=== PATIENT | male | born 1965 | race Caucasian/White ===

== ENCOUNTER 2018-04-21 08:23 | Emergency (ER) | payer OTHER, SELFPAY ==
[2018-04-21 08:24] VITALS: BP 184/98; PULSE 70; RESP 15; TEMP 36.8; BMI 28.0
--- NOTE | 2018-04-21 08:42 | ED.DEP ---
ED Disposition - Plan for ED Patient: Chief Complaint: Back Instructions: ED Sciatica Prescriptions: Oxycodone HCl/Acetaminophen [Percocet 5/325] 1 tab PO Q6H PRN PRN 5 Days #20 tab PRN Reason: Pain Diazepam [Valium] 5 mg PO Q8 PRN #10 tab PRN Reason: Muscle Spasm Referrals: Jonathan Christine MD [Primary Care Provider] - Belia Baez MD [STAFF PHYSICIAN] - 3-5 Days
--- NOTE | 2018-04-21 08:46 | ED.VISSUMM ---
- ER Visit Summary Date of Service: 04/21/18 Chief Complaint: [Back pain] History of Present Illness: The patient is a 52 M [presents the emergency department complaint of back pain that started for 5 weeks ago. Patient states that he has had history of chronic back pain over the years and has seen a chiropractor multiple times in the past. 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 Patient states that he saw a urgent care physician 1 week ago and was started on a Medrol Dosepak and Flexeril but has not get much in the way of relief. Patient currently rates his pain an 8 out of 10. Pain is lower right back and radiates into his buttock and down his right leg. Patient states that certain pressure on parts of his back or buttock will send a searing pain like an electrical shock down his right leg. Patient denies any weakness in extremities. Patient denies any change in bowel or bladder function. Patient denies saddle anesthesia or inability to have an erection. Patient tells me that he had a lumbar discectomy many years ago he thinks at L4 and L5. Patient denies any fevers. He denies any abdominal pain. He denies urinary symptoms.] Patient is not had any falls or direct trauma to his back. Physical Examination: [HEENT-PERRLA, EOMI. Cranial nerves II through XII grossly intact. TMs clear. Mucous membranes moist. No adenopathy. Cardiovascular-regular rate and rhythm without murmur or ectopy Lungs-clear to auscultation, chest wall stable without crepitus or subcu emphysema Abdomen-normoactive bowel sounds, soft, nontender, no rebound or rigidity, no peritoneal signs. No pulsatile masses palpated. Back exam-patient has no tenderness over the thoracic or lumbar spine. Patient does have some mild tenderness over the right lumbar paraspinal musculature into the right buttock over the area of the piriformis. Patient has a positive straight leg raise on the right with pain at about 40 degrees. Deep tendon reflexes are plus 1 out of 4 bilaterally at the patella and Achilles. Patient has normal L5 extension bilaterally. Patient has normal sensation to light touch. Patient ambulates without difficulty. Extremities-intact ?4, normal range of motion, normal pulses, atraumatic] Test Results: [None indicated] Emergency Department Course and Treatment: [Patient is driving therefore no treatment in the emergency department] Treatment Plan: [Patient will be referred to Dr. Baez who is an orthopedic data warehousing specialist for follow-up. I feel patient may require further imaging such as MRI to fully evaluate which will need to be performed as an outpatient as I do not feel patient has any signs or symptoms of cauda equina at this point. Patient will be started on Percocet and Valium. Patient was advised to return if worsening pain, weakness the extremities, change in bowel or bladder function, or condition should worsen anyway.] Disposition: [Discharged home in stable condition] Impression: [Lumbar radiculopathy] This note was generated with [employer] dictation software. It may contain incorrect words, spelling, and punctuation that were not noted in review of the chart prior to signing ED Disposition - Plan for ED Patient: Chief Complaint: Back Instructions: ED Sciatica Prescriptions: Oxycodone HCl/Acetaminophen [Percocet 5/325] 1 tab PO Q6H PRN PRN 5 Days #20 tab PRN Reason: Pain Diazepam [Valium] 5 mg PO Q8 PRN #10 tab PRN Reason: Muscle Spasm Referrals: Belia Baez MD [STAFF PHYSICIAN] - 3-5 Days Jonathan Christine MD [Primary Care Provider] -
--- NOTE | 2018-04-21 08:50 | ED.DCSUM_ITS ---
- ER Visit Summary Date of Service: 04/21/18 Chief Complaint: [Back pain] History of Present Illness: The patient is a 52 M [presents the emergency department complaint of back pain that started for 5 weeks ago. Patient states that he has had history of chronic back pain over the years and has seen a chiro practor multiple times in the past. 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 Patient states that he saw a urgent care physician 1 week ago and was started on a Medrol Dosepak and Flexeril but has not get much in the way of relief. Patient currently rates his pain an 8 out of 10. Pain is lower right back and radiates into his buttock and down his right leg. Patient states that certain pressure on parts of his back or buttock will send a searing pain like an electrical shock down his right leg. Patient denies any weakness in extremities. Patient denies any change in bowel or bladder function. Patient denies saddle anesthesia or inability to have an erection. Patient tells me that he had a lumbar discectomy many years ago he thinks at L4 and L5. Patient denies any fevers. He denies any abdominal pain. He denies urinary symptoms.] Patient is not had any falls or direct trauma to his back. Physical Examination: [HEENT-PERRLA, EOMI. Cranial nerves II through XII grossly intact. TMs clear. Mucous membranes moist. No adenopathy. Cardiovascular-regular rate and rhythm without murmur or ectopy Lungs-clear to auscultation, chest wall stable without crepitus or subcu emphysema Abdomen-normoactive bowel sounds, soft, nontender, no rebound or rigidity, no peritoneal signs. No pulsatile masses palpated. Back exam-patient has no tenderness over the thoracic or lumbar spine. Patient does have some mild tenderness over the right lumbar paraspinal musculature into the right buttock over the area of the piriformis. Patient has a positive straight leg raise on the right with pain at about 40 degrees. Deep tendon reflexes are plus 1 out of 4 bilaterally at the patella and Achilles. Patient has normal L5 extension bilaterally. Patient has normal sensation to light touch. Patient ambulates without difficulty. Extremities-intact ?4, normal range of motion, normal pulses, atraumatic] Test Results: [None indicated] Emergency Department Course and Treatment: [Patient is driving therefore no treatment in the emergency department] Treatment Plan: [Patient will be referred to Dr. Baez who is an orthopedic enrichment specialist for follow-up. I feel patient may require further imaging such as MRI to fully evaluate which will need to be performed as an outpatient as I do not feel patient has any signs or symptoms of cauda equina at this point. Patient will be started on Percocet and Valium. Patient was advised to return if worsening pain, weakness the extremities, change in bowel or bladder function, or condition should worsen anyway.] Disposition: [Discharged home in stable condition] Impression: [Lumbar radiculopathy] This note was generated with [employer] dictation software. It may contain incorrect words, spelling, and punctuation that were not noted in review of the chart prior to signing ED Disposition - Plan for ED Patient: Chief Complaint: Back Instructions: ED Sciatica Prescriptions: Oxycodone HCl/Acetaminophen [Percocet 5/325] 1 tab PO Q6H PRN PRN 5 Days #20 tab PRN Reason: Pain Diazepam [Valium] 5 mg PO Q8 PRN #10 tab PRN Reason: Muscle Spasm Referrals: Belia Baez MD [STAFF PHYSICIAN] - 3-5 Days Jonathan Christine MD [Primary Care Provider] -
== END 2018-04-21 08:54 | disposition home or self-care (01) ==
PROVIDERS: Emergency Provider Emergency Medicine; Family Provider Internal Medicine; PCP Internal Medicine
DX: M54.16 Radiculopathy, lumbar region (principal); G89.29 Other chronic pain; I10 Essential (primary) hypertension; Z79.899 Other long term (current) drug therapy
CPT/HCPCS: 99282

== ENCOUNTER → 2018-10-26 | Outpatient (CLI) | payer OTHER, SELFPAY ==
--- NOTE | 2018-10-26 16:01 | VDLE_ITS ---
Reason For Study: pain RIGHT LEFT GSV is normal. CFV is compressible, spontaneous, phasic, CFV is compressible, spontaneous, phasic, competent, and demonstrates normal competent and demonstrates normal augmentation. augmentation. FV is compressible, spontaneous, phasic, competent and demonstrates normal augmentation. POP V is compressible, spontaneous, phasic, competent and demonstrates normal augmentation. T/P Trunk is compressible. PTV is compressible. RT PerV is compressible. Procedure Exam performed in department. The exam was diagnostic. A preliminary report was called and/or faxed to Noem[facility] Sanchez. Interpretation Summary Deep veins of the right lower extremity are patent and compressible segmentally. There is no evidence of right lower extremity deep vein thrombosis. Valvular competence appears intact within the proximal deep venous system on the right . The right greater saphenous vein appears patent and compressible segmentally. Ordering Physician: SHAKEEL Herrera Performed By: Valentin Ramirez RVT
== END | disposition home or self-care (01) ==
LOC: CVS 16:00
PROVIDERS: Family Provider Internal Medicine; PCP Internal Medicine; Referring Provider Nurse Practitioner; Visit Provider Nurse Practitioner
DX: M79.604 Pain in right leg (principal)
CPT/HCPCS: 93971

== ENCOUNTER → 2019-10-23 12:12 | Outpatient (CLI) | payer OTHER, SELFPAY ==
[2018-11-11 09:53] VITALS: BMI 28.0
--- OUTSIDE RECORDS SUMMARY | 2020-03-18 13:21 | XMS RPT_ITS | CCD ---
:1965 External Reference #:[id number] Author Organization [facility] Care Team Providers Name Role Phone Dinah Alcocer MD Unavailable Laura INFORMIX DEVELOPER-FRENCH PROFESSOR, M Unavailable Rajni INFORMIX DEVELOPER-FRENCH PROFESSOR Unavailable Monique GOLDEN Attending Unavailable Monique GOLDEN Referring Unavailable Christine Primary Care Unavailable Juan José Unavailable Unavailable PROVIDER Unavailable Unavailable No Unavailable Unavailable Nick Boland DO Unavailable Coy Christine Primary Care Provider Medications Medication Name Sig Date Prescriber Location Acetaminophen / PERCOCET 5-325 MG 05-08-2018 [facility] oxyCODONE TABS One tablet [facility] [place] every six hours as - Orthopa edic needed for pain Surgeons Cli gauri ([id number]) OXYCODONE-ACETAMINO PHEN [id number] Noemí Sanchez INFORMIX DEVELOPER-FRENCH PROFESSOR amLODIPine amLODIPine 06-05-2018 Jonathan Cespedes [facility] (NORVASC) 10 mg - [facility] tablet Indications: 03-05-2020 - Orthop [facility] hypertension Take 1 (08671) tablet by mouth once daily. 90 tablet 0 03/05/2020 Active Comment: Take 1 tablet by mouth once daily. cyclobenzaprine cyclobenzaprine 10-23-2019 Josh romero [facility] (FLEXERIL) 10 mg tablet (441 [id number]) Indications: Lumbar paraspinal muscle spasm Take 1 tablet by mouth three times daily as needed. 30 tablet 1 10/23/2019 Active Comment: Take 1 tablet by mouth three times daily as needed. DOCUSATE SODIUM CAPS [employer] STOOL SOFTENER CAPS As 10-26-2018 [facility] [phone] Orth opaedic Surgeons Noemí Sanchez [facility] ([id number]) INFORMIX DEVELOPER-FRENCH PROFESSOR [employer] STOOL SOFTENER CAPS As needed 10-26-2018 [facility] Orthopaedic Center - DOCUSATE SODIUM CAPS [facility] ([id number]) [id number] Noemí Adrian [place] INFORMIX DEVELOPER-FRENCH PROFESSOR [employer] STOOL SOFTENER CAPS As needed 10-26-2018 [facility] Orthopaedic Center - DOCUSATE SODIUM CAPS [facility] (47616) [id number] Noemí Adrian [place] INFORMIX DEVELOPER-FRENCH PROFESSOR [employer] STOOL SOFTENER CAPS As needed 10-26-2018 [facility] [place] - DOCUSATE SODIUM CAPS [facility] (84544) [phone] Noemí Adrian [facility] gabapentin gabapentin (NEURONTIN) 03-10-2020 - [facility] 800 mg tablet 04-09-2020 Orthopa[facility] Ce nter Indications: - Orthopaedic Radiculopathy, lumbar Surgeo ns Clinic region take 1 tablet ([id number]) by mouth three times a day 90 tablet 1 03/10/2020 04/09/2020 Active gabapentin (NEURONTIN) 01-10-2020 - [facility] Smarter Agent Mobile C linic 800 mg tablet 02-09-2020 Orthopaedic Cent er - Indications: Orthopaedic Surg eons Radiculopathy, lumbar Clinic (56 [id number]) region take 1 tablet by mouth three times a day 90 tablet 1 01/10/2020 Active GABAPENTIN 600 MG TABS 1 01-15-2019 - Noemí Adrian [facility] tablet PO Three times 02-14-2019 INFORMIX DEVELOPER-FRENCH PROFESSOR Orthopaedi c Center - daily Dx Code: M54.16 [facility]opaedi c [facility] (29 333) GABAPENTIN [id number] Noemí Adrian [facility] GABAPENTIN 100 MG CAPS 05-08-2018 [facility] linic One capsule twice daily Orthopae dic Center - GABAPENTIN Orthopaedi c Surgeons [phone] Noemí Adrian [facility] (058 [id number]) [place] INFORMIX DEVELOPER-FRENCH PROFESSOR NEURONTIN 300 MG CAPS 05-08-2018 Noemí Adrian [facility] Take 1 tab by mouth twice INFORMIX DEVELOPER-FRENCH PROFESSOR Orthop aedic Center - daily x7 days, then 1 tab Orthop aedic Surgeons by mouth three times a Clinic (9 7103) day Dx Code: M54.16 GABAPENTIN [id number] Noemí Virgen [facility] GABAPENTIN 600 MG TABS 1 05-08-2018 Ranjana Urban [facility] tab PO TID [facility] Orthopaedi c Center - GABAPENTIN [id number] Orthopaed ic Surgeons [facility] ([id number] ) [facility] Comment: take 1 tablet by mouth three times a day Ibuprofen IBUPROFEN 800 MG 01-25-2019 - Noemí Gates Cli gauri TABS Take one tablet 05-02-2019 [facility] edic [place] by mouth twice a day [facility] - Ortho paedic w/ food Surgeons Clinic IBUPROFEN (83514) [id number] Noemí Virgen [facility] IBUPROFEN 800 MG TABS Take 07-13-2018 Ranjana Urban [facility] 1 tablet by mouth every 8 [facility] Orthop aedic Center - hours as needed with food Orthop aedic Surgeons IBUPROFEN Clinic (441 [id number]) [phone] [facility] IBUPROFEN 200 MG TABS 2 05-03-2018 [facility] tablets (400mg) as Orthopaedic C enter - directed as needed Orthopaedic S urgeons IBUPROFEN Clinic (447 33) [phone] Ruba Dunne RN Comment: Take 800 mg by mouth twice d aily as needed. Lisinopril LISINOPRIL 10 MG TABS 1 tablet 05-03-2018 [facility] Orthopaedic once daily Center - Orthopaedic Surgeons LISINOPRIL [phone] Ruba [facility] (86591) Uzair BUSCH lisinopril (ZESTRIL, 05-03-2018 - Jonathan Christine [facility] PRINIVIL) 40 mg tablet 03-05-2020 Orthopaed ic Center - Indications: Essential Orthopaed ic Surgeons hypertension Take 1 Clinic ([phone]) tablet by mouth once daily. 90 tablet 0 03/05/2020 Active Comment: Take 1 tablet by mouth once daily. Naproxen EC-NAPROSYN 500 MG 05-08-2018 Noemí Gates C linic TBEC Take 1 tablet [place] [facility] [place] by mouth 2 times a [facility] - Orthopa edic day Surgeons Clin ic NAPROXEN (36834) [phone] Noemí Sanchez [facility] OMEPRAZOLE TABLETS OMEPRAZOLE TABLETS 10-26-2018 [facility] As needed Orthopaedic Jakub ter - Orthopaedic OMEPRAZOLE TABLETS Surgeons Clinic Noemí Sanchez (30793) [facility] OMEPRAZOLE TABLETS As needed 10-26-2018 [facility] Orthopaedic Center - OMEPRAZOLE TABLETS [facility] (50489) Virgen Sanchez [facility]EL[facility] OMEPRAZOLE TABLETS As needed 10-26-2018 [facility] Orthopaedic Center - OMEPRAZOLE TABLETS [facility] (78255) Virgen Sanchez [facility] OMEPRAZOLE TABLETS As needed 10-26-2018 [facility] Center - OMEPRAZOLE TABLETS [facility] (31315) Virgen Sanchez [facility] pantoprazole pantoprazole 08-30-2019 Zuleika (Environmental Inspector) [facility] (PROTONIX) 40 mg tablet (441 95) Indications: Dysphagia, unspecified type Take 1 tablet by mouth daily before breakfast. 30 tablet 1 08/30/2019 Active Comment: Take 1 tablet by mouth daily before breakfast. pregabalin LYRICA 100 MG ORAL 01-25-2019 - Yann Boland [facility] CAPSULE (PREGABALIN) 02-24-2019 DO Orthopa edic Center Take 1 capsule by - Orthopae dic mouth 2 times a day Surgeons Clinic (66767 ) LYRICA 100 MG ORAL CAPSULE (PREGABALIN) Yann Romero [facility] tamsulosin tamsulosin ER 07-24-2019 Mitzy Castro) [place] [facility] (FLOMAX) 0.4 mg jenni Russ (77076) Indications: BPH with obstruction/lower urinary tract symptoms Take 1 capsule by mouth daily at bedtime. 90 capsule 3 07/24/2019 Active Comment: Take 1 capsule by mouth laura y at bedtime. Problems Active Problems Category Problem Name Status Date Location Disorders of lipid [facility] metabolism (26539) Esophageal disorders Gastroesophageal reflux Active - [facility] disease (67085) Essential hypertension Essential hypertension Active 10-19-19 06 - [facility] (42471) Hyperplasia of Benign prostatic Active 11-08-2013 - [facility] prostate hyperplasia (74233) Other upper Chronic rhinitis Active 04-17-2015 - [facility] lin respiratory disease (43978) Past or Other Problems Category Problem Name Status Date Location Fracture of lower limb Closed fracture of Completed 02-28-2019 - [facility] great toe Orthopaedic [facility] ter [facility] (07618) Fracture of upper limb Closed fracture of Completed 02-28-2019 - [facility] distal phalanx of Orthopaedi c Center finger - [facility] (65929) Other aftercare Surgical follow-up Completed 08-29-2018 [facility] Orthopaedic [facility]geons [facility] (77828) Other connective tissue Pain in right lower Completed 10-26-2018 - [facility] disease limb Orthopaedic [facility] Orthopaedic Surgeons [facility] (80948) Residual codes; Noncompliance with Completed 03-14-2019 - [facility] unclassified treatment [facility]opaedic [facility] Orthopaedic Surgeons [facility] (76856) Spondylosis; Spinal stenosis of Completed 04-28-2018 - [facility] intervertebral disc lumbar region Orthopa edic Center disorders; other back - Orth opaedic problems [facility]geons [facility] (24727) Unclassified Problem [facility] Orthopaedic [facility] (93337) Results Result Name Value Range Unit Interpretation Flag Date Location obsolete on 2020-03 OBSOLETE Refill (AGSPINE2) Normal 03-10-2020 [facility] MICHAEL CHASE ([id number]) 1965 M Medical Date Time Provider Department Center 03/10/20 ULISES ZEPEDA AGSPINE2 ([id number]) During your visit today, we recorded the following informati on about you: Allergies As of Date: 03/10/2020 (No Known Allergies) Date Reviewed: 08/30/2019 Reviewed by: Zuleika ([facility]) Older - Fully Assessed Reason for Visit: Refill Request [94] Visit Diagnosis:Radiculopathy, lumbar region [M54.16] Order(s):gabapentin (NEURONTIN) 800 mg tablettake 1 tablet b y mouth three times a dayDisp: 90 tabletRfl: 1 Prescriptions as of 03/10/2020 Sig: GABAPENTIN 800 MG TABLET take 1 tablet by mouth three * LISINOPRIL 40 MG TABLET Take 1 tablet by mouth once d* AMLODIPINE 10 MG TABLET Take 1 tablet by mouth once d* CYCLOBENZAPRINE 10 MG TABLET Take 1 tablet by mouth three * PANTOPRAZOLE 40 MG TABLET,DEL* Take 1 tablet by mouth daily * TAMSULOSIN 0.4 MG CAPSULE Take 1 capsule by mouth daily* IBUPROFEN 800 MG TABLET Take 800 mg by mouth twice da* Problem List As Of Date 03/10/2020 Noted Resolved Essential hypertension [I10] 10/18/2005 OBESITY [E66.9] 10/18/2005 04/17/2015 Diarrhea [R19.7] 10/27/2007 04/17/2015 BPH (benign prostatic hyperplasia) [N40.0] 11/08/2013 Hyperlipidemia [E78.5] 11/26/2013 Blood glucose abnormal [R73.09] 11/26/2013 06/02/2018 Gastroesophageal reflux disease [K21.9] 04/17/2015 Chronic rhinitis [J31.0] 04/17/2015 Kidney insufficiency [N28.9] 05/14/2018 06/20/2018 Lumbar radiculopathy [M54.16] 05/08/2018 Prescriptions ordered this encounter Disp Refills Start End GABAPENTIN 800 MG TABLET 90 t* 1 03/10/2020 04/09/2020 Sig: take 1 tablet by mouth three times a day Medications Discontinued During This Encounter Prescriptions - gabapentin (NEURONTIN) 800 mg tablet (Discontinued) take 1 tablet by mouth three times a day Encounter Status:Closed by ULISES ZEPEDA on 03/10/20 obsolete on 2020-02 OBSOLETE Refill (INTMWS) Normal 03-05-2020 Paco khan [facility] MICHAEL CHASE ([id number]) [address] [facility] Date Time Provider Department ([id number]) 03/05/20 JONATHAN CHRISTINE INTRUSTY During your visit today, we recorded the following informati on about you: Keturah Doshi [facility] 03/05/2020 9:57 AM Signed Patient has been identified by name and date of : Yes Pending Prescriptions Disp Refills LISINOPRIL 40 MG TABLET 90 tablet 3 Sig: Take 1 tablet by mouth once daily. ARIA: No AMLODIPINE 10 MG TABLET 90 tablet 3 Sig: Take 1 tablet by mouth once daily. ARIA: No RX INSTRUCTIONS: Patient aware RX will be sent to pharmacy. No need to notify patient. Keturah Doshi [facility] Sofia Arriola LPN 03/05/2020 10:07 AM Signed Patient has been identified by name and date of : Yes Patient phones for refill(s): Pending Prescriptions Disp Refills LISINOPRIL 40 MG TABLET 90 tablet 0 Sig: Take 1 tablet by mouth once daily. ARIA: No AMLODIPINE 10 MG TABLET 90 tablet 0 Sig: Take 1 tablet by mouth once daily. ARIA: No Date of last office visit in primary care: 10/23/2019 No future appt scheduled. Last 2 Encounter Wt Readings: Date: Wt: 07/24/2019 101.9 kg (224 lb 9.6 oz) 07/12/2019 99.8 kg (220 lb) Previous labs/tests for medication: Blood Pressure: BUN (mg/dL) Date Value 05/31/2018 19 Sodium (mmol/L) Date Value 05/31/2018 142 Last 1 Encounter BP Readings: Date: BP: 07/24/2019 118/80 Please advise. Thank you. Sofia Christine MD 03/05/2020 10:29 AM Signed Fasting lab ordered. In office visit needed. Devon Michaels Cma 03/05/2020 10:57 AM Signed Sent secure [email or web address] message to patient with below informatio n. Asked patient to call office to schedule appointments. Devon Michaels Cma Allergies As of Date: 03/05/2020 (No Known Allergies) Date Reviewed: 08/30/2019 Reviewed by: Zuleika ([facility]) Older - Fully Assessed Reason for Visit: Refill Request [94] Primary Visit Diagnosis:Hype rlipidemia, unspecified hyperlipidemia type [E78.5] Other Visit Diagnosis:Essential hypertension [I10] Order(s):lisinopril (ZESTRIL, PRINIVIL) 40 mg tabletTake 1 t ablet by mouth once daily.Disp: 90 tabletRfl: 0 amLODIPine (NORVASC) 10 mg tabletTake 1 tablet by mouth once daily.Disp: 90 tabletRfl: 0 CBC [SQCBC] Order #: [id number] FUTURE CMP (CMP) (FOR REMOTE [facility] USE) [SQRCMP] Order #: [id number] FUTURE LIPID PANEL BASIC [SQLIPB] Order #: [id number] FUTURE Prescriptions as of 03/05/2020 Sig: LISINOPRIL 40 MG TABLET Take 1 tablet by mouth once d* AMLODIPINE 10 MG TABLET Take 1 tablet by mouth once d* GABAPENTIN 800 MG TABLET take 1 tablet by mouth three * CYCLOBENZAPRINE 10 MG TABLET Take 1 tablet by mouth three * PANTOPRAZOLE 40 MG TABLET,DEL* Take 1 tablet by mouth daily * TAMSULOSIN 0.4 MG CAPSULE Take 1 capsule by mouth daily* IBUPROFEN 800 MG TABLET Take 800 mg by mouth twice da* Problem List As Of Date 03/05/2020 Noted Resolved Essential hypertension [I10] 10/18/2005 OBESITY [E66.9] 10/18/2005 04/17/2015 Diarrhea [R19.7] 10/27/2007 04/17/2015 BPH (benign prostatic hyperplasia) [N40.0] 11/08/2013 Hyperlipidemia [E78.5] 11/26/2013 Blood glucose abnormal [R73.09] 11/26/2013 06/02/2018 Gastroesophageal reflux disease [K21.9] 04/17/2015 Chronic rhinitis [J31.0] 04/17/2015 Kidney insufficiency [N28.9] 05/14/2018 06/20/2018 Lumbar radiculopathy [M54.16] 05/08/2018 Prescriptions ordered this encounter Disp Refills Start End LISINOPRIL 40 MG TABLET 90 t* 0 03/05/2020 Cmt: Patient needs to schedule appt w/PCP. Route: ORAL Sig: Take 1 tablet by mouth once daily. AMLODIPINE 10 MG TABLET 90 t* 0 03/05/2020 Cmt: Patient needs to schedule appt w/PCP. Route: ORAL Sig: Take 1 tablet by mouth once daily. Medications Discontinued During This Encounter Prescriptions - lisinopril (ZESTRIL, PRINIVIL) 40 mg tablet (Discontinued) Take 1 tablet by mouth once daily. - amLODIPine (NORVASC) 10 mg tablet (Discontinued) Take 1 tablet by mouth once daily. Encounter Status:Closed by DEVON MICHAELS CMA on 03/05/20 obsolete on 2020-01 OBSOLETE Refill (AGSPINE2) Normal 01-10-2020 A rosy [facility] MICHAEL CHASE ([id number]) 1965 Medical Date Time Provider Department Center 01/10/20 ULISES ZEPEDA AGSPINE2 ([id number]) During your visit today, we recorded the following informati on about you: Allergies As of Date: 01/10/2020 (No Known Allergies) Date Reviewed: 08/30/2019 Reviewed by: Zuleika ([facility]) Older - Fully Assessed Reason for Visit: Refill Request [94] Visit Diagnosis:Radiculopathy, lumbar region [M54.16] Order(s):gabapentin (NEURONTIN) 800 mg tablettake 1 tablet b y mouth three times a dayDisp: 90 tabletRfl: 1 Prescriptions as of 01/10/2020 Sig: GABAPENTIN 800 MG TABLET take 1 tablet by mouth three * CYCLOBENZAPRINE 10 MG TABLET Take 1 tablet by mouth three * PANTOPRAZOLE 40 MG TABLET,DEL* Take 1 tablet by mouth daily * TAMSULOSIN 0.4 MG CAPSULE Take 1 capsule by mouth daily* LISINOPRIL 40 MG TABLET Take 1 tablet by mouth once d* AMLODIPINE 10 MG TABLET Take 1 tablet by mouth once d* IBUPROFEN 800 MG TABLET Take 800 mg by mouth twice da* Problem List As Of Date 01/10/2020 Noted Resolved Essential hypertension [I10] 10/18/2005 OBESITY [E66.9] 10/18/2005 04/17/2015 Diarrhea [R19.7] 10/27/2007 04/17/2015 BPH (benign prostatic hyperplasia) [N40.0] 11/08/2013 Hyperlipidemia [E78.5] 11/26/2013 Blood glucose abnormal [R73.09] 11/26/2013 06/02/2018 Gastroesophageal reflux disease [K21.9] 04/17/2015 Chronic rhinitis [J31.0] 04/17/2015 Kidney insufficiency [N28.9] 05/14/2018 06/20/2018 Lumbar radiculopathy [M54.16] 05/08/2018 Prescriptions ordered this encounter Disp Refills Start End GABAPENTIN 800 MG TABLET 90 t* 1 01/10/2020 02/09/2020 Sig: take 1 tablet by mouth three times a day Medications Discontinued During This Encounter Prescriptions - gabapentin (NEURONTIN) 800 mg tablet (Discontinued) take 1 tablet by mouth three times a day Encounter Status:Closed by ULISES ZEPEDA on 01/10/20 cnpn [facility] Normal 10-25-2019 [place] [facility] MICHAEL CHASE ([id number]) [address] [facility] Date Time Provider Department ([id number]) 10/25/19 JOSH DOZIER III During your visit today, we recorded the following informati on about you: Richard Watson LPN 10/25/2019 9:12 AM Signed Pt had Zoom appt with Dr Dozier yesterday. Received neg ative COVID-19 results from [facility]. Results on Dr Dozier's desk for review. Pt us es My Chart. Richard Dozier III MD 10/25/2019 9:50 AM Signed Please notify patient that he had negative results for Covid 19. I suspect that he has a different viral syndrome. I recommend supporti ve treatment including rest, good hydration, good handwashing and social distancing. He must wear a mask when out in public though he should spend most of his time resting at home until his present illness has resolved. No tify office if he notes additional symptoms of illness. ANGELIQUE Lewis MD, NIKIA, NIKIA 10/25/2019 10:23 AM Signed Spoke with pt gave information provided. Pt voices understan demarco. Allergies As of Date: 10/25/2019 (No Known Allergies) Date Reviewed: 08/30/2019 Reviewed by: Zuleika ([facility]) Older - Fully Assessed Reason for Visit: Results [95] Prescriptions as of 10/25/2019 Sig: CYCLOBENZAPRINE 10 MG TABLET Take 1 tablet by mouth three * PANTOPRAZOLE 40 MG TABLET,DEL* Take 1 tablet by mouth daily * GABAPENTIN 800 MG TABLET take 1 tablet by mouth three * TAMSULOSIN 0.4 MG CAPSULE Take 1 capsule by mouth daily* LISINOPRIL 40 MG TABLET Take 1 tablet by mouth once d* AMLODIPINE 10 MG TABLET Take 1 tablet by mouth once d* IBUPROFEN 800 MG TABLET Take 800 mg by mouth twice da* Problem List As Of Date 10/25/2019 Noted Resolved Essential hypertension [I10] 10/18/2005 OBESITY [E66.9] 10/18/2005 04/17/2015 Diarrhea [R19.7] 10/27/2007 04/17/2015 BPH (benign prostatic hyperplasia) [N40.0] 11/08/2013 Hyperlipidemia [E78.5] 11/26/2013 Blood glucose abnormal [R73.09] 11/26/2013 06/02/2018 Gastroesophageal reflux disease [K21.9] 04/17/2015 Chronic rhinitis [J31.0] 04/17/2015 Kidney insufficiency [N28.9] 05/14/2018 06/20/2018 Lumbar radiculopathy [M54.16] 05/08/2018 Encounter Status:Closed by JENNA GALDAMEZ LPN on 10/25/19 progress on 2019-10 PROGRESS HNO ID: [id number] Normal 10-23-2019 [place] Author: Josh Dozier III Clinic Service: ? [place] Author Type: Physician ([id number]) Type: Progress Notes Filed: 10/23/2019 10:30 AM Note Text: This Team Access Model visit is a virtual encounter. It requ ired patient-provider interaction for the medical decision making as documented below. initiated at 1009 This patient encounter involved the screening or treatment o f novel coronavirus infection (COVID-19). SUBJECTIVE: This is a 54 year old male that is here today fo r 1. Generalized aching and pain starting 10/20. fever x 18 hrs (T102.5 ), chills, sweats on 10/21. No fever since last sangeeta. 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 Denies being in groups of people who have been non-compliant with [facility] quarantine/safe distancing orders. Only exposed to family members who are not ill. Hx of low back pain and now has increase in back pain. Constipated with the muscle tightness. Asking for muscle relaxer. Has CHAPPELL, but no cough, dyspnea PAST MEDICAL HISTORY Diagnosis Date - BPH (benign prostatic hyperplasia) 11/08/2013 - Chronic rhinitis 04/17/2015 - Diarrhea IBS, 2007 - Gastroesophageal reflux disease 04/17/2015 - Hyperlipidemia 11/26/2013 - HYPERTENSION NOS 10/18/2005 - Snoring Current Outpatient Medications on File Prior to Visit Medication Sig - clotrimazole (MYCELEX) 10 mg brie Use 1 Brie as instru cted four times daily. - pantoprazole DR (PROTONIX) 40 mg tablet Take 1 tablet by m outh daily before breakfast. - gabapentin (NEURONTIN) 800 mg tablet take 1 tablet by mout h three times a day - tamsulosin ER (FLOMAX) 0.4 mg cap Take 1 capsule by mouth daily at bedtime. - lisinopril (ZESTRIL, PRINIVIL) 40 mg tablet Take 1 tablet by mouth once daily. - amLODIPine (NORVASC) 10 mg tablet Take 1 tablet by mouth o nce daily. - ibuprofen (MOTRIN) 800 mg tablet Take 800 mg by mouth twic e daily as needed. No current facility-administered medications on file prior t o visit. FAMILY HISTORY Problem Relation Age of Onset - Diabetes Mother - Coronary Artery Disease Father several SC's - Stroke Father - Diabetes Father Social History Tobacco Use - Smoking status: Never Smoker - Smokeless tobacco: Former User Types: Chew Substance Use Topics - Alcohol use: No Frequency: Never Drinks per session: Patient refused Binge frequency: Patient refused - Drug use: No There were no vitals taken for this visit. . OBJECTIVE: APPEARANCE Well appearing, alert, in no acute distress, well -hydrated, well nourished. and cheerful, alert, rational, goal oriented ASSESSMENT: viral syndrome --r/o Covid 19 lumbar muscle strain hx of degenerative LS disc dis. PLAN: careful activity-progress activity as able flexeril 10 mg three times/day as needed for muscle spasm Covid 19 testing today at [facility]--form faxed Stay home from work until Covid testing confirms absence of disease PATIENT INSTRUCTIONS: At present, these are our recommendations regarding the crystal navirus (COVID-19) outbreak: - Wash your hands regularly for at least 20 seconds with soa p and water, especially before eating. - If soap/water are unavailable, use a hand weatherization coordinator with a t least 60% alcohol - Avoid touching your eyes, nose and mouth with unwashed norris ds. - Avoid close contact (within 6 feet) with people who are si ck. - Stay home if you are feeling sick. - Cover your cough or sneeze with a tissue, then throw the t issue in the trash. - Standard household cleansers and wipes are effective in cl eaning and disinfecting frequently touched objects and surfaces. - Skip events that put you in contact with large groups of p eople (sporting events, concerts, theme atkins, etc). - Avoid unnecessary domestic and international travel, inclu ding travel through large international airports. - If traveling, wipe down your airplane seat (and tray) with a disinfecting wipe. If you have a fever, cough or shortness of breath, or are ot herwise concerned you have COVID-19, we ask that you do not come to any [facility] facility without calling your primary care physician or speaking to a provider using a virtual visit using [facility] Expr ess Care? Online. You will be evaluated to determine if you require be ing seen in person or if you meet CDC guidelines for testing for COVID-1 9 based on symptoms, travel and exposures. If you meet criteria for arlyn ting, your Express Care Online provider or primary care physician will advise how to proceed with testing - CDC recommends wearing cloth face coverings in public sett ings where other social distancing measures are difficult to maintain ( e.g., grocery stores and pharmacies) especially in areas of significant co mmunity-based transmission. Cloth face coverings should: ? fit snugly but comfortably against the side of the face ? be secured with ties or ear loops ? include multiple layers of fabric ? allow for breathing without restriction ? be able to be laundered and machine dried without damage o r change to shape Cloth face coverings should not be placed on young children under age 2, anyone who has trouble breathing, or is unconscious, incapac itated or otherwise unable to remove the mask without assistance. - There is no need to stop your immunosuppressive medication s preemptively. - If you become sick, please let your doctor know, and discu ss with them prior to stopping any medications. - At this point, we have no knowledge that patients on immun osuppressive medications are at higher risk of COVID-19 infection. - Most importantly, don't panic. By following basic preventi on measures such as hand hygiene and cover your cough, you are helping t o keep yourself and others healthy. Additional information can be found on the CDC and [facility] web sites: https://www.cdc.gov/coronavirus/2019-nCoV/index.html https://[facility].org/coronavirus Josh Dozier III MD ended at 1023 14 min cnpn on 2019-09-18 CNPN Telephone (UROLWS) Normal 09-18-2019 [place] [facility] MICHAEL CHASE ([id number]) [address] [facility] Date Time Provider Department ([id number]) 09/18/19 MITZY RUSS) [facility] During your visit today, we recorded the following informati on about you: Yudy Quintero Ma 09/18/2019 1:45 PM Signed Mitzy Castro) Burak Stern [facility] Urology Pool ? PSA Much improved after repeating after UTI treatment This is of very little concern right now but I would l edel to have him for in person visit in 1 year with a PSA prior to the visit. Thank you, Burak Quintero Ma 09/18/2019 2:07 PM Signed Left message for patient to contact office. Yudy Quintero Ma 09/24/2019 9:44 AM Signed [employer] message sent. Yudy Bhakta Ma 09/28/2019 9:16 AM Signed Pt. notified of test results. Domi Bhakta MA Allergies As of Date: 09/18/2019 (No Known Allergies) Date Reviewed: 08/30/2019 Reviewed by: Zuleika ([facility]) Older - Fully Assessed Reason for Visit: Results [95] Prescriptions as of 09/18/2019 Sig: CLOTRIMAZOLE 10 MG BRIE Use 1 Brie as instructed fo* PANTOPRAZOLE 40 MG TABLET,DEL* Take 1 tablet by mouth daily * GABAPENTIN 800 MG TABLET take 1 tablet by mouth three * TAMSULOSIN 0.4 MG CAPSULE Take 1 capsule by mouth daily* LISINOPRIL 40 MG TABLET Take 1 tablet by mouth once d* AMLODIPINE 10 MG TABLET Take 1 tablet by mouth once d* IBUPROFEN 800 MG TABLET Take 800 mg by mouth twice da* Problem List As Of Date 09/18/2019 Noted Resolved Essential hypertension [I10] 10/18/2005 OBESITY [E66.9] 10/18/2005 04/17/2015 Diarrhea [R19.7] 10/27/2007 04/17/2015 BPH (benign prostatic hyperplasia) [N40.0] 11/08/2013 Hyperlipidemia [E78.5] 11/26/2013 Blood glucose abnormal [R73.09] 11/26/2013 06/02/2018 Gastroesophageal reflux disease [K21.9] 04/17/2015 Chronic rhinitis [J31.0] 04/17/2015 Kidney insufficiency [N28.9] 05/14/2018 06/20/2018 Lumbar radiculopathy [M54.16] 05/08/2018 Encounter Status:Closed by YUDY QUINTERO MA on 09/24/19 psa, diagnostic on 2019-09-17 PSA, Diagnostic 3.57 0.00-2.59 ng/mL High 09-17-2019 [facility] ([id number]) Comment: Result Comment: Total PSA te st methodology used is the Electrochemiluminescence Immunoassay. The presence of an abnormal result flag in this range (2.6 to 4.0 ng/mL) should not necessarily be an automatic indicator for prostate biopsy. For an individual patient, t he significance of a PSA level should be interpreted in a broad clinical context, including age, race, family history, digital rectal exam, prostate size, results of prior te sting (prostate biopsy, free PSA, PCA3), and use of 5-alpha reductase inhibitors. Considering the high inciden ce of asymptomatic cancer in the general population that may not pose an ultimate risk to a patient, the decision to recommend urological evaluation or prostate biopsy should be individualized after con sideration of all these factors. REFERENCE: Idris Lambert M.D., M.P. H., David Hazel M.D., Ph.D., Edi Barraza M.D., Ade Oro, M.P.H., Marya Gerber, Sc.D. Effect of Verification Bias on Screening for Prostate Cancer by Measurement of Prostatic Specific Antigen. N Engl J Med 2003,349:335-42. Performed By: #### PSA ####C [facility] [place], [place] [phone] history physical on 2019-09-07 HISTORY PHYSICAL HNO ID: [id number] Normal [facility] Author: Robby Mauricio [place] ([id number]) Service: ? Author Type: Nurse Practitioner Type: HANDP Filed: 09/07/2019 11:43 AM Note Text: This Team Access Model visit is a phone encounter. It requir ed patient-provider interaction for the medical decision making as documented below. The patient consented to this type of encounter since it was performed virtually due to the COVID-19 epidemic as an effor t to protect patients and minimize exposure. The patient is identified by name and birthday. Michael Seedia a 54 year old male who is a consultation re quested by Zuleika Jason APRN for an opinion regarding dysphagia. My final rec ommendations will be communicated back to the requesting physician by way of shared Medical record. The patient has his call Dr. Christine on 08/29/19 magdalena pal difficulty swallowing. The patient was then interviewed by Maite phipps on 08/30/19. That encounter has been reviewed. He reported dysph agia after having eaten a cheeseburger and fries. The sensation lasted 8 hours. Notes occasional heartburn. He reported taking ibuprofen 800mg twi ce a day for nearly a year, since having back surgery. The patient was pr escribed pantoprazole 40mg daily. The patient has been seen previously. I saw him on 12/16/17 r egarding GERD and colorectal cancer screening. That note has been reviewed . The patient underwent EGD and colonoscopy by Dr. Orozco on 12/23/17: EGD Impression: - Normal examined jejunum. ? - Erythematous duodenopathy. ? - Gastritis. Biopsied. ? - Monilial esophagitis. ? - Monilial esophagitis. Biopsied. Recommendation: - Nystatin suspension 100,000 units PO QID f or 2 weeks. FINAL DIAGNOSIS 1. Stomach, antrum, biopsy (A) - Gastric mucosa with no diag nostic alteration. - Negative for H. pylori organisms on routine stain. 2. Esophagus, distal, biopsy (B) - Acute esophagitis with fu ngal organisms morphologically consistent with Anna species. 3. Esophagus, mid, biopsy (C) - Esophageal squamous mucosa w ith no diagnostic alteration. - No evidence of eosinophilic esophagitis. 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 Chief complaint: The patient states every once in a while i t feels like food goes down a few inches and stops. Can't burp, but can b reathe. When I ate the cheeseburger and fries it took me an hour and a chappell lf before I could finally puke up the food. It gets uncomfortable every few months and I can usually burp it back up, drink a few liquids and b e fine. Started pantoprazole after seeing Zuleika. Also has Prilosec OTC at home. Usually has dinner 5-7:00, only meal of the day, and might h ave a snack later. He heads to bed 9-10:00. Sleeps on a regular mattress with the head of the bed flat, Uses 2 pillows to prop. We discussed n ot eating for 3 hours before bed or elevating the head of the bed. REVIEW OF SYSTEMS: GENERAL: No weight loss, malaise or fevers RESPIRATORY: Negative for cough, hemoptysis, wheezing, COPD, dyspnea or shortness of breath CARDIOVASCULAR: Hypertension and hyperlipidemia. No chest pa in. GI: The patient states that his appetite has been good. He d oes get hungry. There has been no nausea, no vomiting. He admits to dysphagia as noted aboveand denies odynophagia. There has sometimes been indigestion with heartburn. There has been regurgitation. Bowel habits h ave been regular. There has not been melena. No abdominal pain. PSYCH: Negative for sleep disturbance, mood disorder and rec ent psychosocial stressors. ENDOCRINE: Negative for cold or heat intolerance, polyuria, polydipsia and goiter NEURO: No history of headaches, syncope, paralysis, seizures or tremors All other reviewed and negative other than HPI. PAST MEDICAL HISTORY Diagnosis Date - BPH (benign prostatic hyperplasia) 11/08/2013 - Chronic rhinitis 04/17/2015 - Diarrhea IBS, 2007 - Gastroesophageal reflux disease 04/17/2015 - Hyperlipidemia 11/26/2013 - HYPERTENSION NOS 10/18/2005 - Snoring PAST SURGICAL HISTORY Procedure Laterality Date - COLONOSCOP W/ OR W/O BRSH SPEC 12/23/2017 Colonoscopy - COLONOSCOPY W/BX 10/23/07 - EGD W/O OR W/BRUSH/WASH 12/23/2017 EGD - PAST SURGICAL HISTORY OF 2004 back surgery FAMILY HISTORY Problem Relation Age of Onset - Diabetes Mother - Coronary Artery Disease Father several SC's - Stroke Father - Diabetes Father Current Outpatient Medications Medication Sig Dispense Refill - pantoprazole DR (PROTONIX) 40 mg tablet Take 1 tablet by m outh daily before breakfast. 30 tablet 1 - gabapentin (NEURONTIN) 800 mg tablet take 1 tablet by mout h three times a day 90 tablet 1 - tamsulosin ER (FLOMAX) 0.4 mg cap Take 1 capsule by mouth daily at bedtime. 90 capsule 3 - lisinopril (ZESTRIL, PRINIVIL) 40 mg tablet Take 1 tablet by mouth once daily. 90 tablet 3 - amLODIPine (NORVASC) 10 mg tablet Take 1 tablet by mouth o nce daily. 90 tablet 3 - ibuprofen (MOTRIN) 800 mg tablet Take 800 mg by mouth twic e daily as needed. No current facility-administered medications for this visit. SOCIAL HISTORY: Patient is . He has never smoked and reports his alco hol use as never. PHYSICAL EXAMINATION: No vitals or PE since telemedicine Impression: GERD 2)dysphagia The patient and I formulated the following plan: Continue pa ntoprazole. May use the OTC when prescription is completed. If no improv ement in a couple weeks then get the troches. Keep me informed. This vi sit was 11 minutes in length. Robby Mauricio RN APRN.ERYN bearden on 2019-09-07 CNOV Office Visit ([facility]) Normal 09-07-[address] [place] [address] [facility] MICHAEL CHASE ([id number]) 1965 [address] [place] Date Time Provider Department ([id number]) 09/07/19 10:40 AM ROBBY MAURICIO [facility] During your visit today, we recorded the following informati on about you: Robby Mauricio RN APRN.FRENCH PROFESSOR 09/07/2019 11:43 AM Signed This Team Access Model visit is a phone encounter. It requir ed patient-provider interaction for the medical decision making as documented below. The patient consented to this type of enc ounter since it was performed virtually due to the COVID-19 epidemic as an effort to pro tect patients and minimize exposure. The patient is identified by name and bir . Michael Lea Rena a 54 year old male who is a consultation re quested by Zuleika Jason APRN for an opinion regarding dysphagia. My final recommendations will be communicated back to the requesting physician by way of s celia Medical record. The patient has his call Dr. Christine on 08/29/19 reg arding difficulty swallowing. The patient was then intervi ewed by Zuleika on 08/30/19. That encounter has been reviewed. He reported dysphagia after having eaten a cheeseburger and fries. The sensation lasted 8 hours. Notes occasional heartburn. He reported taking ibuprofen 800mg twice a day for nearly a year, since having back surgery. The patient was prescribed pantoprazole 40mg daily. The patient has been seen previously. I saw him on 12/16/17 regarding GERD and colorectal cancer screening. That note has been reviewed. The patient underwent EGD and colonoscopy by Dr. Orozco on 12/23/17: EGD Impression: - Normal examined jejunum. ? - Erythematous duodenopathy. ? - Gastritis. Biopsied. ? - Monilial esophagitis. ? - Monilial esophagitis. Biopsied. Recommendation: - Nystatin suspension 100,000 units PO QID f or 2 weeks. FINAL DIAGNOSIS 1. Stomach, antrum, biopsy (A) - Gastric mucosa with no diag nostic alteration. - Negative for H. pylori organisms on routine stain. 2. Esophagus, distal, biopsy (B) - Acute esophagitis with fu ngal organisms morphologically consistent with Anna species. 3. Esophagus, mid, biopsy (C) - Esophageal squamous mucosa w ith no diagnostic alteration. - No evidence of eosinophilic esophagitis. 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 Chief complaint: The patient states every once in a while it feels like food goes down a few inches and stops. Can't burp, bu t can breathe. When I ate the cheeseburger and fries it took me an hour and a half befor e I could finally puke up the food. It gets uncomfortable every few months and I can usually burp it back up, drink a few liquids and be fine. Started pantoprazole after seeing Zuleika. Also has Prilosec OTC at home. Usually has dinner 5-7:00, only meal of the day, and might have a snack later. He heads to bed 9-10:00. Sleeps on a reg ular mattress with the head of the bed flat, Uses 2 pillows to prop. We discussed not eating for 3 hours before bed or elevating the head of the bed. REVIEW OF SYSTEMS: GENERAL: No weight loss, malaise or fevers RESPIRATORY: Negative for cough, hemoptysis, wheezing, COPD, dyspnea or shortness of breath CARDIOVASCULAR: Hypertension and hyperlipidemia. No chest pa in. GI: The patient states that his appetite has been good. He does get hungry. There has been no nausea, no vomiting. He admits to dysphagia as noted aboveand denies odynophagia. There has sometimes been indigestion with heartburn. There has been regurgitation. Bowel habits have been regular. Ther e has not been melena. No abdominal pain. PSYCH: Negative for sleep disturbance, mood disorder a nd recent psychosocial stressors. ENDOCRINE: Negative for cold or heat intolerance, polyuria, polydipsia and goiter NEURO: No history of headaches, syncope, paralysis, seizures or tremors All other reviewed and negative other than HPI. PAST MEDICAL HISTORY Diagnosis Date - BPH (benign prostatic hyperplasia) 11/08/2013 - Chronic rhinitis 04/17/2015 - Diarrhea IBS, 2007 - Gastroesophageal reflux disease 04/17/2015 - Hyperlipidemia 11/26/2013 - HYPERTENSION NOS 10/18/2005 - Snoring PAST SURGICAL HISTORY Procedure Laterality Date - COLONOSCOP W/ OR W/O BRSH SPEC 12/23/2017 Colonoscopy - COLONOSCOPY W/BX 10/23/07 - EGD W/O OR W/BRUSH/WASH 12/23/2017 EGD - PAST SURGICAL HISTORY OF 2004 back surgery FAMILY HISTORY Problem Relation Age of Onset - Diabetes Mother - Coronary Artery Disease Father several SC's - Stroke Father - Diabetes Father Current Outpatient Medications Medication Sig Dispense Refill - pantoprazole DR (PROTONIX) 40 mg tablet Take 1 tablet by mouth daily before breakfast. 30 tablet 1 - gabapentin (NEURONTIN) 800 mg tablet take 1 tablet by mouth three times a day 90 tablet 1 - tamsulosin ER (FLOMAX) 0.4 mg cap Take 1 capsu le by mouth daily at bedtime. 90 capsule 3 - lisinopril (ZESTRIL, PRINIVIL) 40 mg tablet Take 1 tablet by mouth once daily. 90 tablet 3 - amLODIPine (NORVASC) 10 mg tablet Take 1 tablet by mouth o nce daily. 90 tablet 3 - ibuprofen (MOTRIN) 800 mg tablet Take 800 mg by mouth twice daily as needed. No current facility-administered medications for this visit. SOCIAL HISTORY: Patient is . He has never smoked and repo rts his alcohol use as never. PHYSICAL EXAMINATION: No vitals or PE since telemedicine Impression: GERD 2)dysphagia The patient and I formulated the following plan: Continue pantoprazole. May use the OTC when prescription is completed. If no improvement in a couple weeks then get the troches. Keep me informed. This visit was 11 minutes in length. Robby Mauricio RN INFORMIX DEVELOPER.ERYN Mauricio RN APRN.ERYN 09/07/2019 11:43 AM Signed Continue pantoprazole. May use the OTC when prescription is completed. If no improvement in a couple weeks then get the troches. Keep me informed. Referring Provider: ZULEIKA JASON (ERYN) [[id number]] Allergies As of Date: 09/07/2019 (No Known Allergies) Date Reviewed: 08/30/2019 Reviewed by: Zuleika (Eryn) Casie - Fully Assessed Primary Visit Diagnosis:Gastroesophageal reflux disease, esophagitis presence not specified [K21.9] Other Visit Diagnoses:Esophageal dysphagia [R13.10] Dysphagia, unspecified type [R13.10] Order(s):clotrimazole (MYCELEX) 10 mg trocheUse 1 Brie a s instructed four times daily.Disp: 56 TrocheRfl: 0 CONSULT TO GASTROENTEROLOGY [9010] Order #: [id number]: 1 Prescriptions as of 09/07/2019 Sig: CLOTRIMAZOLE 10 MG BRIE Use 1 Brie as instructed fo* PANTOPRAZOLE 40 MG TABLET,DEL* Take 1 tablet by mouth daily * GABAPENTIN 800 MG TABLET take 1 tablet by mouth three * TAMSULOSIN 0.4 MG CAPSULE Take 1 capsule by mouth daily* LISINOPRIL 40 MG TABLET Take 1 tablet by mouth once d* AMLODIPINE 10 MG TABLET Take 1 tablet by mouth once d* IBUPROFEN 800 MG TABLET Take 800 mg by mouth twice da* Problem List As Of Date 09/07/2019 Noted Resolved Essential hypertension [I10] 10/18/2005 OBESITY [E66.9] 10/18/2005 04/17/2015 Diarrhea [R19.7] 10/27/2007 04/17/2015 BPH (benign prostatic hyperplasia) [N40.0] 11/08/2013 Hyperlipidemia [E78.5] 11/26/2013 Blood glucose abnormal [R73.09] 11/26/2013 06/02/2018 Gastroesophageal reflux disease [K21.9] 04/17/2015 Chronic rhinitis [J31.0] 04/17/2015 Kidney insufficiency [N28.9] 05/14/2018 06/20/2018 Lumbar radiculopathy [M54.16] 05/08/2018 Other instructions from your clinician: Continue pantoprazole. May use the OTC when prescription is completed. If no improvement in a couple weeks then get the troches. Keep me informed. Prescriptions ordered this encounter Disp Refills Start End CLOTRIMAZOLE 10 MG BRIE 56 T* 0 09/07/2019 Route: MUCOUS MEM Sig: Use 1 Brie as instructed four times daily. Encounter Status:Closed by ROBBY MAURICIO CNP on 09/07/19 progress on 2019-08 PROGRESS HNO ID: [id number] Normal 08-30-2019 [facility] Author: Zuleika (Eryn) [facility] ([id number]) Service: ? Author Type: Nurse Practitioner Type: Progress Notes Filed: 08/30/2019 9:23 AM Note Text: This Team Access Model visit is a phone encounter. It requir ed patient-provider interaction for the medical decision making as documented below. CC: swallowing difficulty HPI Michael Chase is a 54 year old male who is contacted enrike jaimes for a phone visit. This is an established patient of Dr. Jonathan alvarez MD. States a few days ago he was eating a cheeseburger and fries and all of a sudden it felt like it stopped at the top of my chest. I co uld feel and taste the food there. Reports it took 8 hours for him to vo kain and cough it up, even had to resort to laying on a pillow on his stoma ch to push it out. Since then he has had minimal difficulty swallowing if he chews small bites really well and swallows them slowly. Any problem swallowing solids, liquids or broth? Solids only How long have you had problems swallowing and have the sympt oms progressed, remained stable, or are they intermittent? He chappell d same problem about 1.5 years ago, states he had an upper and lower endosc opy and was told he had a yeast infection in his throat. 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 Any other symptoms like loss of appetite, wt loss, n/v, regu rgitation of food particles, heartburn, vomiting fresh or old blood, pain with swallowing, or chest pain? Occasional heartburn Any medical problems such as DM, scleroderma, Sjogren syndro m, overlap syndrom, AIDS, neuromuscular disorders (CVA, Parkinson, MS, Muscular dystrophy, Myasthenia gravis), cancer or others? No Any surgery on the larynx, esophagus, stomach, or spine? No Any radiating therapy in the past? No Any Kchlor, alendronate, iron, quinidine, ascorbic acid, tet racycline, ASA, NSAIDS? Ibuprofen 800 mg 2 times a day for almost one y ear since his back surgery. Current Outpatient Medications Medication Sig - gabapentin (NEURONTIN) 800 mg tablet take 1 tablet by mout h three times a day - tamsulosin ER (FLOMAX) 0.4 mg cap Take 1 capsule by mouth daily at bedtime. - lisinopril (ZESTRIL, PRINIVIL) 40 mg tablet Take 1 tablet by mouth once daily. - amLODIPine (NORVASC) 10 mg tablet Take 1 tablet by mouth o nce daily. - ibuprofen (MOTRIN) 800 mg tablet Take 800 mg by mouth twic e daily as needed. No current facility-administered medications for this visit. REVIEW OF SYSTEMS See HPI PAST MEDICAL HISTORY Diagnosis Date - BPH (benign prostatic hyperplasia) 11/08/2013 - Chronic rhinitis 04/17/2015 - Diarrhea IBS, 2007 - Gastroesophageal reflux disease 04/17/2015 - Hyperlipidemia 11/26/2013 - HYPERTENSION NOS 10/18/2005 - Snoring PAST SURGICAL HISTORY Procedure Laterality Date - COLONOSCOP W/ OR W/O BRSH SPEC 12/23/2017 Colonoscopy - COLONOSCOPY W/BX 10/23/07 - EGD W/O OR W/BRUSH/WASH 12/23/2017 EGD - PAST SURGICAL HISTORY OF 2004 back surgery ALLERGIES Patient has no known allergies. MEDICATIONS gabapentin (NEURONTIN) 800 mg tablet take 1 tablet by mouth three times a day tamsulosin ER (FLOMAX) 0.4 mg cap Take 1 capsule by mouth da ari at bedtime. lisinopril (ZESTRIL, PRINIVIL) 40 mg tablet Take 1 tablet by mouth once daily. amLODIPine (NORVASC) 10 mg tablet Take 1 tablet by mouth onc e daily. ibuprofen (MOTRIN) 800 mg tablet Take 800 mg by mouth twice daily as needed. FAMILY HISTORY Problem Relation Age of Onset - Diabetes Mother - Coronary Artery Disease Father several SC's - Stroke Father - Diabetes Father Social History Tobacco Use - Smoking status: Never Smoker - Smokeless tobacco: Former User Types: Chew Substance Use Topics - Alcohol use: No - Drug use: No EXAM: Deferred physical exam as visit was completed over the phone Patient is speaking in complete sentences without obvious re spiratory distress or audible wheezing. ASSESSMENT/PLAN: 1. Dysphagia, unspecified type - ICD9: 787.20, ICD10: R13.10 Reviewed EGD report from 12/23/17 which showed diffuse candid iasis in the lower third of the esophagus and patchy candidiasis in the m iddle third. He was prescribed Nystatin, patient admits he never took thi s. No problems with swallowing until recently. Possibly due to frequent NSA ID use but can't rule out candidal infection. - Start PPI, see orders - Advised to stop NSAID's for now, patient states he will li ab just cut dose in half but feels that he needs the medication - Consult with GI for further recommendations Prescription instructions reviewed with patient as applicabl e. Potential red flag symptoms discussed with the patient. Reviewed appro priate action plan to take if red flag symptoms occur. Patient agreeable t o treatment plan. During this patient visit I have spent approximately 20 hallie arlyn in counseling regarding treatment options, medications and test results. Zuleika Jason APRN.ERYN white on 2019-08-30 ERYNN Telephone ([facility]) Normal 08-30-2019 [place] [facility] MICHAEL CHASE ([id number]) 1965 [place] Date Time Provider Department ([id number]) 08/30/19 JONATHAN CHRISTINE During your visit today, we recorded the following informati on about you: Devon Michaels Cma 08/30/2019 2:23 PM Signed Please call pt and assist wi th scheduling GI consult. Thank you. (Virtual visit ok) Amanda Richards 08/30/2019 2:44 PM Signed 1st attempt left message for patient to call back and schedu le. Amanda Richards 08/31/2019 8:24 AM Signed Spoke with patient and scheduled for 09/06. Allergies As of Date: 08/30/2019 (No Known Allergies) Date Reviewed: 08/30/2019 Reviewed by: Zuleika ([facility]) Older - Fully Assessed Reason for Visit: Appointment [186] Prescriptions as of 08/30/2019 Sig: PANTOPRAZOLE 40 MG TABLET,DEL* Take 1 tablet by mouth daily * GABAPENTIN 800 MG TABLET take 1 tablet by mouth three * TAMSULOSIN 0.4 MG CAPSULE Take 1 capsule by mouth daily* LISINOPRIL 40 MG TABLET Take 1 tablet by mouth once d* AMLODIPINE 10 MG TABLET Take 1 tablet by mouth once d* IBUPROFEN 800 MG TABLET Take 800 mg by mouth twice da* Problem List As Of Date 08/30/2019 Noted Resolved Essential hypertension [I10] 10/18/2005 OBESITY [E66.9] 10/18/2005 04/17/2015 Diarrhea [R19.7] 10/27/2007 04/17/2015 BPH (benign prostatic hyperplasia) [N40.0] 11/08/2013 Hyperlipidemia [E78.5] 11/26/2013 Blood glucose abnormal [R73.09] 11/26/2013 06/02/2018 Gastroesophageal reflux disease [K21.9] 04/17/2015 Chronic rhinitis [J31.0] 04/17/2015 Kidney insufficiency [N28.9] 05/14/2018 06/20/2018 Lumbar radiculopathy [M54.16] 05/08/2018 Encounter Status:Closed by AMANDA RICHARDS on 08/31/19 cnpn on 2019-08-29 CNPN Telephone (HONGWS) Normal 08-29-2019 [place] [facility] MICHAEL CHASE ([id number]) [address] [facility] Date Time Provider Department ([id number]) 08/29/19 JONATHAN CHRISTINE During your visit today, we recorded the following informati on about you: Jenna Virgen Galdamez LPN, OPTICAL MECHANIC 08/29/2019 8:53 AM Signed Pt's calling states pt is out on the . She is having concerns pt is having trouble swallowing fo r past three days , yesterday evening was the worst could not swallow his pills or food. States feels as if it g ets stuck and causes pain. He coughs and coughs and brings up white musc us stringy stuff. Only way to feel better is to induce vomiting . States this went On for about 4 hours last evening. She states only day he is off is Fridays.Please advise. She asks we return call to her due to large loud equipment a round him this would not work.call [phone]. Jonathan Christine MD 08/29/2019 1:09 PM Signed Virtual visit ideal. More information needed. Fever? Sore th roat? Primary cough not related to swallowing? Dyspnea? Sofia Arriola LPN 08/29/2019 1:35 PM Signed Spoke to , Patient scheduled for phone visit with ENVIRONMENTAL FIELD PROFESSIONAL, . Sofia Arriola LPN Allergies As of Date: 08/29/2019 (No Known Allergies) Date Reviewed: 07/24/2019 Reviewed by: Yudy Quintero Ma - Fully Assessed Reason for Visit: Throat Problem [109] Prescriptions as of 08/29/2019 Sig: GABAPENTIN 800 MG TABLET take 1 tablet by mouth three * TAMSULOSIN 0.4 MG CAPSULE Take 1 capsule by mouth daily* LISINOPRIL 40 MG TABLET Take 1 tablet by mouth once d* AMLODIPINE 10 MG TABLET Take 1 tablet by mouth once d* IBUPROFEN 800 MG TABLET Take 800 mg by mouth twice da* Problem List As Of Date 08/29/2019 Noted Resolved Essential hypertension [I10] 10/18/2005 OBESITY [E66.9] 10/18/2005 04/17/2015 Diarrhea [R19.7] 10/27/2007 04/17/2015 BPH (benign prostatic hyperplasia) [N40.0] 11/08/2013 Hyperlipidemia [E78.5] 11/26/2013 Blood glucose abnormal [R73.09] 11/26/2013 06/02/2018 Gastroesophageal reflux disease [K21.9] 04/17/2015 Chronic rhinitis [J31.0] 04/17/2015 Kidney insufficiency [N28.9] 05/14/2018 06/20/2018 Lumbar radiculopathy [M54.16] 05/08/2018 Encounter Status:Closed by SOFIA ARRIOLA LPN on 08/29/19 obsolete on 2019-08 OBSOLETE Refill (AGSPINE2) Normal 08-28-2019 [facility] MICHAEL CHASE ([id number]) 1965 M Medical Date Time Provider Department Center 08/28/19 ULISES ZEPEDA AGSPINE2 ([id number]) During your visit today, we recorded the following informati on about you: Allergies As of Date: 08/28/2019 (No Known Allergies) Date Reviewed: 07/24/2019 Reviewed by: Yudy Quintero Ma - Fully Assessed Reason for Visit: Refill Request [94] Visit Diagnosis:Radiculopathy, lumbar region [M54.16] Order(s):gabapentin (NEURONTIN) 800 mg tablettake 1 tablet b y mouth three times a dayDisp: 90 tabletRfl: 1 Prescriptions as of 08/28/2019 Sig: GABAPENTIN 800 MG TABLET take 1 tablet by mouth three * TAMSULOSIN 0.4 MG CAPSULE Take 1 capsule by mouth daily* LISINOPRIL 40 MG TABLET Take 1 tablet by mouth once d* AMLODIPINE 10 MG TABLET Take 1 tablet by mouth once d* IBUPROFEN 800 MG TABLET Take 800 mg by mouth twice da* Problem List As Of Date 08/28/2019 Noted Resolved Essential hypertension [I10] 10/18/2005 OBESITY [E66.9] 10/18/2005 04/17/2015 Diarrhea [R19.7] 10/27/2007 04/17/2015 BPH (benign prostatic hyperplasia) [N40.0] 11/08/2013 Hyperlipidemia [E78.5] 11/26/2013 Blood glucose abnormal [R73.09] 11/26/2013 06/02/2018 Gastroesophageal reflux disease [K21.9] 04/17/2015 Chronic rhinitis [J31.0] 04/17/2015 Kidney insufficiency [N28.9] 05/14/2018 06/20/2018 Lumbar radiculopathy [M54.16] 05/08/2018 Prescriptions ordered this encounter Disp Refills Start End GABAPENTIN 800 MG TABLET 90 t* 1 08/28/2019 09/27/2019 Sig: take 1 tablet by mouth three times a day Medications Discontinued During This Encounter gabapentin (NEURONTIN) 800 mg tablet 90 t* 1 08/06/2019 020 Sig: take 1 tablet by mouth three times a day Disc: Reason for discontinue is not on file. Encounter Status:Closed by ULISES ZEPEDA on 08/28/19 urine culture on 23-08-01 Bacteria Sp. Request/Comment: - FOR PRE OPERATIVE STERILIZATION Critically 08-06-2019 [place] identified Cx Culture Result - 10,000 - <5 0,000 CFU/ml Staphylococcus aureus --> ABNORMAL ALERT abnormal [facility] (U) ORGANISM: Staphylococcus aureus [place] METHOD: Minimum inhibitory concentration(Vitek) ([id number]) Antibiotic Interp JULIAN Status Trimeth sulfameth SUSCEPTIBLE <=10 F Oxacillin SUSCEPTIBLE 0.5 F Oxacillin susceptible staphy lococci are susceptible to other penicillinase stable penicillins, beta lactam/beta lactamase inhibitor combinations, anti staphyloccal cephems, and carbapenems. Vancomycin SUSCEPTIBLE <=0.5 F Tetracycline SUSCEPTIBLE <=1 F Gentamicin SUSCEPTIBLE <=0.5 F Nitrofurantoin SUSCEPTIBLE 32 F Rifampin SUSCEPTIBLE <=0.5 F Rifampin should not be used alone for antimicrobial therapy. Doxycycline SUSCEPTIBLE <=0.5 F Comment: Performed By: #### STEFF ### # [facility] Elicia s [address] [place], [place] [address] obsolete on 2019-08 OBSOLETE Refill (AGSPINE2) Normal 08-06-2019 [facility] MICHAEL CHASE ([id number]) 1965 M Medical Date Time Provider Department Center 08/06/19 ULISES ZEPEDA AGSPINE2 ([id number]) During your visit today, we recorded the following informati on about you: Allergies As of Date: 08/06/2019 (No Known Allergies) Date Reviewed: 07/24/2019 Reviewed by: Yudy Quintero Ma - Fully Assessed Reason for Visit: Refill Request [94] Visit Diagnosis:Radiculopathy, lumbar region [M54.16] Order(s):gabapentin (NEURONTIN) 800 mg tablettake 1 tablet b y mouth three times a dayDisp: 90 tabletRfl: 1 Prescriptions as of 08/06/2019 Sig: GABAPENTIN 800 MG TABLET take 1 tablet by mouth three * TAMSULOSIN 0.4 MG CAPSULE Take 1 capsule by mouth daily* LISINOPRIL 40 MG TABLET Take 1 tablet by mouth once d* AMLODIPINE 10 MG TABLET Take 1 tablet by mouth once d* IBUPROFEN 800 MG TABLET Take 800 mg by mouth twice da* Problem List As Of Date 08/06/2019 Noted Resolved Essential hypertension [I10] 10/18/2005 OBESITY [E66.9] 10/18/2005 04/17/2015 Diarrhea [R19.7] 10/27/2007 04/17/2015 BPH (benign prostatic hyperplasia) [N40.0] 11/08/2013 Hyperlipidemia [E78.5] 11/26/2013 Blood glucose abnormal [R73.09] 11/26/2013 06/02/2018 Gastroesophageal reflux disease [K21.9] 04/17/2015 Chronic rhinitis [J31.0] 04/17/2015 Kidney insufficiency [N28.9] 05/14/2018 06/20/2018 Lumbar radiculopathy [M54.16] 05/08/2018 Prescriptions ordered this encounter Disp Refills Start End GABAPENTIN 800 MG TABLET 90 t* 1 08/06/2019 09/05/2019 Sig: take 1 tablet by mouth three times a day Medications Discontinued During This Encounter gabapentin (NEURONTIN) 800 mg tablet 90 t* 1 06/29/2019 020 Route: ORAL Sig: Take 1 tablet by mouth three times daily for 30 days. Disc: Reason for discontinue is not on file. Encounter Status:Closed by ULISES ZEPEDA on 08/06/19 progress on 2019-07 PROGRESS HNO ID: [id number] Normal 07-24-2019 [facility] Author: Mitzy Castro) Burak Wong ([id number]) Service: ? Author Type: Physician Materials Management Supervisor Type: Progress Notes Filed: 07/24/2019 4:54 PM Note Text: [facility] PATIENT INFO: Michael Chase 54 year old [facility]# [id number] PCP: Jonathan Christine MD Referred by: Jonathan Christine MD Consult: A consultation was requested by Jonathan Christine MD for a n opinion regarding Elevated PSA. My final recommendations communicated back to the requesting physician by way of shared Medical record. CHIEF COMPLAINT: Elevated PSA. HPI: This is a 54 year old male, who has Elevated PSA. , which st arted in 2019, and involves the Urine, Prostate Patient states this minimal in severity and minimal in quali ty, and is happening intermittently Aggravating factors: He has a UTI and that will most definit elizabeth increase his PSA , Alleviating Factors: No . And the patient denies h aving Fever, Chills, Nausea and Vomiting VOIDING SYMPTOMS: All GUROS reviewed, all were negative Since starting Flomax SEXUAL SYMPTOMS: ED: Number of Years of Sexual Dysfunction: 2 Progressive Dysfunction: Yes ALLERGY: ALLERGIES No Known Allergies MEDICATIONS: Current Outpatient Medications Medication Sig Dispense Refill - tamsulosin ER (FLOMAX) 0.4 mg cap Take 1 capsule by mouth daily at bedtime. 30 capsule 1 - gabapentin (NEURONTIN) 800 mg tablet Take 1 tablet by mout h three times daily for 30 days. 90 tablet 1 - lisinopril (ZESTRIL, PRINIVIL) 40 mg tablet Take 1 tablet by mouth once daily. 90 tablet 3 - amLODIPine (NORVASC) 10 mg tablet Take 1 tablet by mouth o nce daily. 90 tablet 3 - ibuprofen (MOTRIN) 800 mg tablet Take 800 mg by mouth twic e daily as needed. No current facility-administered medications for this visit. Past Medical History PAST MEDICAL HISTORY Diagnosis Date - BPH (benign prostatic hyperplasia) 11/08/2013 - Chronic rhinitis 04/17/2015 - Diarrhea IBS, 2007 - Gastroesophageal reflux disease 04/17/2015 - Hyperlipidemia 11/26/2013 - HYPERTENSION NOS 10/18/2005 - Snoring Past Surgical History PAST SURGICAL HISTORY Procedure Laterality Date - COLONOSCOP W/ OR W/O BRSH SPEC 12/23/2017 Colonoscopy - COLONOSCOPY W/BX 10/23/07 - EGD W/O OR W/BRUSH/WASH 12/23/2017 EGD - PAST SURGICAL HISTORY OF 2004 back surgery Family History FAMILY HISTORY Problem Relation Age of Onset - Diabetes Mother - Coronary Artery Disease Father several SC's - Stroke Father - Diabetes Father REVIEW OF SYSTEMS: General: General: Well developed, well nourished. No acute d istress HEENT: Negative for sore throat, difficulty swallowing. Negative for frequent or significant headaches, changes in v ision or hearing. Cardiovascular: No history of cardiovascular symtoms or prob lems. No history of angina, CHF, SC, cardiac surgery of stents. Respiratory: Negative for current cough, dyspnea. No hx of p neumonia in the past six weeks Gastrointestinal: No history of GERD, PUD, abd pain, difficu lty swallowing, GI bleed. Renal: Negative for renal failure and No history of dialysis Musculoskeletal: Negative for joint pain or swelling, back p ain or muscle pain. Skin: Negative for lesions, rash and itching. Psychological: No history of psychiatric symptoms or problem s. 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 No neurological symp toms or problems. Hematology/Oncology: No history of bleeding or clotting diso rder. Pt is not taking anti-coagulation or platelet medications. No hist ory of hematological symptoms or problems. Endocrine: No history of endocrinological symtoms or problem s No history of DM; has not taken steroids w/in past 30 days. Negative for excessive sweating, thirst or hunger Physical Examination: Blood pressure 118/80, pulse 66, resp. rate 16, weight 101.9 kg (224 lb 9.6 oz). General Appearance/ Constitutional: Well developed, well nou rished, and in no apparent distress HEENT: Not examined Neck: Lymph Nodes: Not examined Cardiac: Normal Breast: Not examined Pulmonary: Ascultation: Normal Effort: Normal GI: Soft and Non-tender Peripheral Vascular: Not examined Extremities: Cyanosis absent and Edema absent Skin: Not examined Neurologic: Grossly non-focal and Alert and oriented (MALE): Penis: Normal without external lesions Testicles: bilaterally and normal Scrotum: Normal Prostate: About 30 gm, non tender, no nodules Results for orders placed or performed in visit on 07/24/19 UA DIP, URINE (POC) Result Value Ref Range GLUCOSE UA (POCT) Negative Negative mg/dL BILIRUBIN UA (POCT) Negative Negative KETONE UA (POCT) Negative Negative mg/dL SPECIFIC GRAVITY UA (POCT) >=1.030 1.005 - 1.030 HEMOGLOBIN/BLOOD UA (POCT) Trace-intact (A) Negative PH UA (POCT) 5.5 4.5 - 8.0 PROTEIN UA (POCT) Negative Negative mg/dL UROBILINOGEN UA (POCT) 0.2 Normal E.U./dL NITRITE UA (POCT) Negative Negative LEUKOCYTES UA (POCT) Small (A) Negative COLOR UA (POCT) Dark yellow CLARITY UA (POCT) Slightly Cloudy UROLOGICAL DATA: Post Void Residual, Ultrasound:30 ml IMPRESSION / PLAN: > History of Elevated PSA.- mostly likely due to UTI current ly will treat and retest PSA > Urine Culture after antibiotics - orders in > PSA 1 month after Negative Urine Culture > 3 mo follow up for ED medication discussion I spent approximately 40 minutes in this visit, with more th an 50% of the time devoted to patient discussion, counseling, review of re cords and/or coordination of care. Mitzy Russ, BIB, MT, PA-C cnov on 2019-07-24 CNOV Office Visit (UROLWS) Normal 07-24-19 [place] [facility] MICHAEL CHASE ([id number]) 1965 M [place] Date Time Provider Department ([id number]) 07/24/19 10:30 AM MITZY RUSS) UROLWS During your visit today, we recorded the following informati on about you: Pulse Respiration Blood pressure Weight 66/minute 16/minute 118/80 101.9 kg KORY Temple 07/24/2019 4:54 PM Signed [facility] PATIENT INFO: Michael Chase 54 year old [facility]# [id number] PCP: Jonathan Christine MD Referred by: Jonathan Christine MD Consult: A consultation was requested by Jonathan Christine MD for an opinion regarding Elevated PSA. My final recommendations communicated back to e requesting physician by way of shared Medical record. CHIEF COMPLAINT: Elevated PSA. HPI: This is a 54 year old male, who has Elev ated PSA. , which started in 2019, and involves the Urine, Prostate Patient states this minimal in severity and minimal in quali ty, and is happening intermittently Aggravating factors: He has a UTI and that will most d efinitely increase his PSA , Alleviating Factors: No . And the patient denies having Fever, Chills, Nausea and Vomiting VOIDING SYMPTOMS: All GUROS reviewed, all were negative Since starting Flomax SEXUAL SYMPTOMS: ED: Number of Years of Sexual Dysfunction: 2 Progressive Dysfunction: Yes ALLERGY: ALLERGIES No Known Allergies MEDICATIONS: Current Outpatient Medications Medication Sig Dispense Refill - tamsulosin ER (FLOMAX) 0.4 mg cap Take 1 capsu le by mouth daily at bedtime. 30 capsule 1 - gabapentin (NEURONTIN) 800 mg tablet Take 1 tablet by mouth three times daily for 30 days. 90 tablet 1 - lisinopril (ZESTRIL, PRINIVIL) 40 mg tablet Take 1 tablet by mouth once daily. 90 tablet 3 - amLODIPine (NORVASC) 10 mg tablet Take 1 tablet by mouth o nce daily. 90 tablet 3 - ibuprofen (MOTRIN) 800 mg tablet Take 800 mg by mouth twice daily as needed. No current facility-administered medications for this visit. Past Medical History PAST MEDICAL HISTORY Diagnosis Date - BPH (benign prostatic hyperplasia) 11/08/2013 - Chronic rhinitis 04/17/2015 - Diarrhea IBS, 2008 - Gastroesophageal reflux disease 04/17/2015 - Hyperlipidemia 11/26/2013 - HYPERTENSION NOS 10/18/2005 - Snoring Past Surgical History PAST SURGICAL HISTORY Procedure Laterality Date - COLONOSCOP W/ OR W/O BRSH SPEC 12/23/2017 Colonoscopy - COLONOSCOPY W/BX 10/23/07 - EGD W/O OR W/BRUSH/WASH 12/23/2017 EGD - PAST SURGICAL HISTORY OF 2004 back surgery Family History FAMILY HISTORY Problem Relation Age of Onset - Diabetes Mother - Coronary Artery Disease Father several SC's - Stroke Father - Diabetes Father REVIEW OF SYSTEMS: General: General: Well developed, well nourished. No acute d istress HEENT: Negative for sore throat, difficulty swallowing. Negative for frequent or significant headaches, changes in vision or hearing. Cardiovascular: No history of cardiovascular symtoms or prob lems. No history of angina, CHF, SC, cardiac surgery of stents. Respiratory: Negative for current cough, dyspnea. No hx of pneumonia in the past six weeks Gastrointestinal: No history of GERD, PU D, abd pain, difficulty swallowing, GI bleed. Renal: Negative for renal failure and No history of dialysis Musculoskeletal: Negative fo r joint pain or swelling, back pain or muscle pain. Skin: Negative for lesions, rash and itching. Psychological: No history of psychiatric symptoms or problem s. 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 No neuro logical symptoms or problems. Hematology/Oncology: No history of bleeding or clotting di sorder. Pt is not taking anti-coagulation or platelet medications. No hi story of hematological symptoms or problems. Endocrine: No history of endocrinological symtoms or problem s No history of DM; has not taken steroids w/in past 30 days. Negative for excessive sweating, thirst or hunger Physical Examination: Blood pressure 118/80, pulse 66, resp. rate 16, weight 101.9 kg (224 lb 9.6 oz). General Appearance/ Constitutional: Well develop ed, well nourished, and in no apparent distress HEENT: Not examined Neck: Lymph Nodes: Not examined Cardiac: Normal Breast: Not examined Pulmonary: Ascultation: Normal Effort: Normal GI: Soft and Non-tender Peripheral Vascular: Not examined Extremities: Cyanosis absent and Edema absent Skin: Not examined Neurologic: Grossly non-focal and Alert and oriented (MALE): Penis: Normal without external lesions Testicles: bilaterally and normal Scrotum: Normal Prostate: About 30 gm, non tender, no nodules Results for orders placed or performed in visit on 07/24/19 UA DIP, URINE (POC) Result Value Ref Range GLUCOSE UA (POCT) Negative Negative mg/dL BILIRUBIN UA (POCT) Negative Negative KETONE UA (POCT) Negative Negative mg/dL SPECIFIC GRAVITY UA (POCT) >=1.030 1.005 - 1.030 HEMOGLOBIN/BLOOD UA (POCT) Trace-intact (A) Negative PH UA (POCT) 5.5 4.5 - 8.0 PROTEIN UA (POCT) Negative Negative mg/dL UROBILINOGEN UA (POCT) 0.2 Normal E.U./dL NITRITE UA (POCT) Negative Negative LEUKOCYTES UA (POCT) Small (A) Negative COLOR UA (POCT) Dark yellow CLARITY UA (POCT) Slightly Cloudy UROLOGICAL DATA: Post Void Residual, Ultrasound:30 ml IMPRESSION / PLAN: > History of Elevated PSA.- mostly likely due to UTI currently will treat and retest PSA > Urine Culture after antibiotics - orders in > PSA 1 month after Negative Urine Culture > 3 mo follow up for ED medication discussion I spent approximately 40 minutes in this visit, with more than 50% of the time devoted to patient discussion, counseling, review of records and/or coordination of care. BIB Dumont, MT, PA-C Referring Provider: JONATHAN CHRISTINE [[id number]] Allergies As of Date: 07/24/2019 (No Known Allergies) Date Reviewed: 07/24/2019 Reviewed by: Yudy Quintero Ma - Fully Assessed Reason for Visit: PSA [337] Primary Visit Diagnosis:Elevated prostate specific antigen ( PSA) [R97.20] Other Visit Diagnoses:BPH with obstruction/lower urinary tra ct symptoms [N40.1, N13.8] Acute cystitis without hematuria [N30.00] Order(s):UA DIP, URINE (POC) [[id number]] Order #: [id number] . #:[id number] nitrofurantoin monohydrate and macrocrystal (MACROBID) 100 m g capsuleTake 1 capsule by mouth twice daily for 3 days.Disp: 6 capsuleRfl: 0 URINE CULTURE [SQURCUL] Order #: [id number] FUTURE PSA/PROSTSPECAG DIAG [SQPSA] Order #: [id number] FUTURE tamsulosin ER (FLOMAX) 0.4 mg capTake 1 capsule by mouth octavio ly at bedtime.Disp: 90 capsuleRfl: 3 Prescriptions as of 07/24/2019 Sig: TAMSULOSIN 0.4 MG CAPSULE Take 1 capsule by mouth daily* GABAPENTIN 800 MG TABLET Take 1 tablet by mouth three * LISINOPRIL 40 MG TABLET Take 1 tablet by mouth once d* AMLODIPINE 10 MG TABLET Take 1 tablet by mouth once d* IBUPROFEN 800 MG TABLET Take 800 mg by mouth twice da* NITROFURANTOIN MONOHYDRATE AND * Take 1 capsule by mouth twi ce* Problem List As Of Date 07/24/2019 Noted Resolved Essential hypertension [I10] 10/18/2005 OBESITY [E66.9] 10/18/2005 04/17/2015 Diarrhea [R19.7] 10/27/2007 04/17/2015 BPH (benign prostatic hyperplasia) [N40.0] 11/08/2013 Hyperlipidemia [E78.5] 11/26/2013 Blood glucose abnormal [R73.09] 11/26/2013 06/02/2018 Gastroesophageal reflux disease [K21.9] 04/17/2015 Chronic rhinitis [J31.0] 04/17/2015 Kidney insufficiency [N28.9] 05/14/2018 06/20/2018 Lumbar radiculopathy [M54.16] 05/08/2018 Prescriptions ordered this encounter Disp Refills Start End NITROFURANTOIN MONOHYDRATE AND MACROCR* 6 ca* 0 07/24/2019 0 07/27/2019 Route: ORAL Sig: Take 1 capsule by mouth twice daily for 3 days. TAMSULOSIN 0.4 MG CAPSULE 90 c* 3 07/24/2019 Route: ORAL Sig: Take 1 capsule by mouth daily at bedtime. Medications Discontinued During This Encounter tamsulosin ER (FLOMAX) 0.4 mg cap 30 c* 1 07/12/2019 07/24/2019 Route: ORAL Sig: Take 1 capsule by mouth daily at bedtime. Disc: Reason for discontinue is not on file. Follow-up and Disposition History Recorded Encounter Status:Closed by MITZY RUSS PA-C on 07/24/19 psa, diagnostic on 2019-07-13 PSA, Diagnostic 12.14 0.00-2.59 ng/mL High 07-13-2019 [facility] ([id number]) Comment: Result Comment: Total PSA te st methodology used is the Electrochemiluminescence Immunoassay. For an individual patient, t he significance of a PSA level should be interpreted in a broad clinical context, including age, race, family history, digital rectal exam, prostate size, results of prior te sting (prostate biopsy, free PSA, PCA3), and use of 5-alpha reductase inhibitors. Considering the high inciden ce of asymptomatic cancer in the general population that may not pose an ultimate risk to a patient, the decision to recommend urological evaluation or prostate biopsy should be individualized after con sideration of all these factors. REFERENCE: Idris Lambert M.D., M.P. H., David Hazel M.D., Ph.D., Edi Barraza M.D., Ade Oro, M.P.H., Marya Gerber, Sc.D. Effect of Verification Bias on Screening for Prostate Cancer by Measurement of Prostatic Specific Antigen. N Engl J Med 2003,349:335-42. Performed By: #### PSA #### [facility] [address] [place], [place] [id number] urine culture on 26-07-05 Bacteria Sp. Request/Comment: - Specimen received in preservative Critically 07-12-2019 [place] identified Cx Culture Result - 10,000 - <5 0,000 CFU/ml Staphylococcus aureus --> ABNORMAL ALERT abnormal [facility] (U) ORGANISM: Staphylococcus aureus [place] METHOD: Minimum inhibitory concentration(Vitek) ([id number]) Antibiotic Interp JULIAN Status Trimeth sulfameth SUSCEPTIBLE <=10 F Oxacillin SUSCEPTIBLE 0.5 F Oxacillin susceptible staphy lococci are susceptible to other penicillinase stable penicillins, beta lactam/beta lactamase inhibitor combinations, anti staphyloccal cephems, and carbapenems. Vancomycin SUSCEPTIBLE 1 F Tetracycline SUSCEPTIBLE <=1 F Gentamicin SUSCEPTIBLE <=0.5 F Nitrofurantoin SUSCEPTIBLE 32 F Rifampin SUSCEPTIBLE <=0.5 F Rifampin should not be used alone for antimicrobial therapy. Doxycycline SUSCEPTIBLE <=0.5 F Comment: Performed By: #### URCUL ### # [facility] [address] [place], [place] [address] progress on 2019-07 PROGRESS HNO ID: [id number] Normal 07-12-2019 [facility] Author: Jonathan Christine [place] ([id number]) Service: ? Author Type: Physician Type: Progress Notes Filed: 07/12/2019 5:52 PM Note Text: This note was created using [email or web address]. Subjective Michael Chase is a 53 year old male. He woke up Tuesday difficulty urinating. Since then he's had urinary frequency, hesitancy, slowed flow, dribbling, and a strong odor. He had no pain, no blood, no f ever. He had a history of kidney stones but this did not feel like that. His hypertension was controlled. Review of Systems Per HPI. ACTIVE PROBLEM LIST Essential Hypertension Bph (Benign Prostatic Hyperplasia) Hyperlipidemia Gastroesophageal Reflux Disease Chronic Rhinitis Lumbar Radiculopathy Current Outpatient Medications Medication Sig - gabapentin (NEURONTIN) 800 mg tablet Take 1 tablet by mout h three times daily for 30 days. - lisinopril (ZESTRIL, PRINIVIL) 40 mg tablet Take 1 tablet by mouth once daily. - amLODIPine (NORVASC) 10 mg tablet Take 1 tablet by mouth o nce daily. - ibuprofen (MOTRIN) 800 mg tablet Take 800 mg by mouth twic e daily as needed. No current facility-administered medications for this visit. Objective BP 124/76 (BP Site: Left Arm, BP Position: Sitting, BP Cuff Size: Large Adult) Pulse 68 Temp 36.1 ?C (96.9 ?F) (Temporal Artery) Resp 16 Wt 99.8 kg (220 lb) BMI 29.03 kg/m? Physical Exam Constitutional: General: He is not in acute distress. Appearance: He is not diaphoretic. Abdominal: General: Abdomen is flat. There is no distension. Palpations: There is no mass. Tenderness: There is no abdominal tenderness. Genitourinary: Prostate: Enlarged. Not tender and no nodules present. Rectum: No mass. Normal anal tone. Comments: BPH 2+ Neurological: Mental Status: He is alert. UA with mild abnormalities. Send for culture. Assessment and Plan 1. BPH with obstruction/lower urinary tract symptoms - ICD9: 600.01, 599.69, ICD10: N40.1, N13.8 (primary diagnosis) - UA DIP, URINE (POC) - PSA/PROSTSPECAG DIAG. The meaning of a false positive PSA and false negative PSA has been discussed, and the patient indicates t heir understanding of the limitations of this screening test. - TAMSULOSIN 0.4 MG CAPSULE - URINE CULTURE Discussed medication dosage, usage, goals of therapy, and si de effects. Call if with no improvement in one week. 2. Essential hypertension - ICD9: 401.9, ICD10: I10 - good control Jonathan Christine MD cnov on 2019-07-12 CNOV Office Visit (INTMWS) Normal 07-12-[address] [place] [address] [facility] RENAMICHAEL Lea ([id number]) [address] [facility] Date Time Provider Department ([id number]) 07/12/19 4:40 PM JONATHAN CHRISTINE INTMWS During your visit today, we recorded the following informati on about you: Temperature Pulse Respiration Blood pressure 96.9 degrees 68/minute 16/minute 124/76 Weight 99.8 kg Jonathan Christine MD 07/12/2019 5:52 PM Signed This note was created using NoteWriter. Subjective Michael Chase is a 53 year old male. He woke up Tuesday difficulty urinating. Since then he's had urinary frequency, hesitancy, slowed flow, dribbling, and a strong odor. He had no pain, no blood, no f ever. He had a history of kidney stones but this did not feel like that. His hypertension was controlled. Review of Systems Per HPI. ACTIVE PROBLEM LIST Essential Hypertension Bph (Benign Prostatic Hyperplasia) Hyperlipidemia Gastroesophageal Reflux Disease Chronic Rhinitis Lumbar Radiculopathy Current Outpatient Medications Medication Sig - gabapentin (NEURONTIN) 800 mg tablet Take 1 tablet by mouth three times daily for 30 days. - lisinopril (ZESTRIL, PRINIVIL) 40 mg tablet Take 1 tablet by mouth once daily. - amLODIPine (NORVASC) 10 mg tablet Take 1 tablet by mouth o nce daily. - ibuprofen (MOTRIN) 800 mg tablet Take 800 mg by mouth twice daily as needed. No current facility-administered medications for this visit. Objective BP 124/76 (BP Site: Left Arm, BP Positio n: Sitting, BP Cuff Size: Large Adult) Pulse 68 Temp 36.1 ?C (96.9 ?F) (Temporal Artery) Resp 16 Wt 99.8 kg (220 lb) BMI 29.03 kg/m? Physical Exam Constitutional: General: He is not in acute distress. Appearance: He is not diaphoretic. Abdominal: General: Abdomen is flat. There is no distension. Palpations: There is no mass. Tenderness: There is no abdominal tenderness. Genitourinary: Prostate: Enlarged. Not tender and no nodules present. Rectum: No mass. Normal anal tone. Comments: BPH 2+ Neurological: Mental Status: He is alert. UA with mild abnormalities. Send for culture. Assessment and Plan 1. BPH with obstruction/lower urinary tract symptoms - ICD9: 600.01, 599.69, ICD10: N40.1, N13.8 (primary diagnosis) - UA DIP, URINE (POC) - PSA/PROSTSPECAG DIAG. The meaning of a false positive PSA and false negative PSA has been discussed, and the patient indicates their understanding of the limitations of this screening test. - TAMSULOSIN 0.4 MG CAPSULE - URINE CULTURE Discussed medication dosage, usage, goals of therapy, and side effects. Call if with no improvement in one week. 2. Essential hypertension - ICD9: 401.9, ICD10: I10 - good control Jonathan Christine MD Referring Provider: SELF [200] Allergies As of Date: 07/12/2019 (No Known Allergies) Date Reviewed: 07/12/2019 Reviewed by: Sofia Arriola LPN - Fully Assessed Reason for Visit: Problem urinating [Other] Primary Visit Diagnosis:BPH with obstruction/lower urinary t ract symptoms [N40.1, N13.8] Other Visit Diagnosis:Essential hypertension [I10] Order(s):UA DIP, URINE (POC) [[id number]] Order #: [id number] ec. #:[id number] PSA/PROSTSPECAG DIAG [SQPSA] Order #: [id number] FUTURE tamsulosin ER (FLOMAX) 0.4 mg capTake 1 capsule by mouth octavio ly at bedtime.Disp: 30 capsuleRfl: 1 URINE CULTURE [SQURCUL] Order #: [id number] Prescriptions as of 07/12/2019 Sig: GABAPENTIN 800 MG TABLET Take 1 tablet by mouth three * LISINOPRIL 40 MG TABLET Take 1 tablet by mouth once d* AMLODIPINE 10 MG TABLET Take 1 tablet by mouth once d* IBUPROFEN 800 MG TABLET Take 800 mg by mouth twice da* TAMSULOSIN 0.4 MG CAPSULE Take 1 capsule by mouth daily* Problem List As Of Date 07/12/2019 Noted Resolved Essential hypertension [I10] 10/18/2005 OBESITY [E66.9] 10/18/2005 04/17/2015 Diarrhea [R19.7] 10/27/2007 04/17/2015 BPH (benign prostatic hyperplasia) [N40.0] 11/08/2013 Hyperlipidemia [E78.5] 11/26/2013 Blood glucose abnormal [R73.09] 11/26/2013 06/02/2018 Gastroesophageal reflux disease [K21.9] 04/17/2015 Chronic rhinitis [J31.0] 04/17/2015 Kidney insufficiency [N28.9] 05/14/2018 06/20/2018 Lumbar radiculopathy [M54.16] 05/08/2018 Prescriptions ordered this encounter Disp Refills Start End TAMSULOSIN 0.4 MG CAPSULE 30 c* 1 07/12/2019 Route: ORAL Sig: Take 1 capsule by mouth daily at bedtime. Medications Discontinued During This Encounter oxyCODONE-acetaminophen (PERCOCET) 5* 60 t* 0 01/05/2019 020 Class: Print RX Route: ORAL Sig: Take 1 tablet by mouth twice daily as needed (for pain.) for up to 30 days. Disc: Reason for discontinue is not on file. Disposition: Return in about 4 weeks (around 08/09/2019), or i f symptoms worsen or fail to improve. Follow-up and Disposition History Recorded Encounter Status:Closed by JONATHAN CHRISTINE MD on 07/12/19 obsolete on 2019-06 OBSOLETE Refill (AGSPINE2) Normal 06-29-2019 A rosy [facility] MICHAEL HCASE ([id number]) 1965 Medical Date Time Provider Department Center 06/29/19 JENNIFER HAWTHORNE ([facility]) AGSPINE2 ([id number]) During your visit today, we recorded the following informati on about you: Yisel Leiva CMA 06/29/2019 2:18 PM Signed Erick Aid sent refill request VIA fax for Gabapentin 800mg #90 1 refill Medication pended Please advise Yisel Leiva CMA Allergies As of Date: 06/29/2019 (No Known Allergies) Date Reviewed: 04/27/2019 Reviewed by: Lou Fair LPN - Fully Assessed Reason for Visit: Refill Request [94] Visit Diagnosis:Radiculopathy, lumbar region [M54.16] Order(s):gabapentin (NEURONTIN) 800 mg tabletTake 1 tablet b y mouth three times daily for 30 days.Disp: 90 tabletRfl: 1 Prescriptions as of 06/29/2019 Sig: GABAPENTIN 800 MG TABLET Take 1 tablet by mouth three * LISINOPRIL 40 MG TABLET Take 1 tablet by mouth once d* AMLODIPINE 10 MG TABLET Take 1 tablet by mouth once d* OXYCODONE-ACETAMINOPHEN 5 MG-* Take 1 tablet by mouth twice * IBUPROFEN 800 MG TABLET Take 800 mg by mouth every 8 * Problem List As Of Date 06/29/2019 Noted Resolved Essential hypertension [I10] 10/18/2005 OBESITY [E66.9] 10/18/2005 04/17/2015 Diarrhea [R19.7] 10/27/2007 04/17/2015 BPH (benign prostatic hyperplasia) [N40.0] 11/08/2013 Hyperlipidemia [E78.5] 11/26/2013 Blood glucose abnormal [R73.09] 11/26/2013 06/02/2018 Gastroesophageal reflux disease [K21.9] 04/17/2015 Chronic rhinitis [J31.0] 04/17/2015 Kidney insufficiency [N28.9] 05/14/2018 06/20/2018 Lumbar radiculopathy [M54.16] 05/08/2018 Prescriptions ordered this encounter Disp Refills Start End GABAPENTIN 800 MG TABLET 90 t* 1 06/29/2019 07/29/2019 Route: ORAL Sig: Take 1 tablet by mouth three times daily for 30 days. Medications Discontinued During This Encounter gabapentin (NEURONTIN) 800 mg tablet 90 t* 1 04/27/201906/29 Route: ORAL Sig: Take 1 tablet by mouth three times daily for 30 days. Disc: Reason for discontinue is not on file. Encounter Status:Closed by ULISES ZEPEDA on 06/29/19 progress on 2019-04 PROGRESS HNO ID: [id number] Normal 04-27-2019 Kian Cedillo [facility] Service: ? ([id number]) Author Type: Nurse Practitioner Type: Progress Notes Filed: 04/27/2019 3:22 PM Note Text: Subjective Back Pain This is a chronic problem. The problem occurs constantly. Th e problem has not changed since onset.The pain is present in the lumbar sp ine. The quality of the pain is described as stabbing. The pain radia arlyn to the right knee and right foot. The pain is at a severity of 4/10 . The pain is moderate. Exacerbated by: walking. The pain is the same all the time. Associated symptoms include tingling. Pertinent negatives in clude no chest pain, no headaches, no dysuria and no weakness. MEDICATION NAME PERCOCET 5/325 MG DATE LAST DOSE TAKEN (LAST WEEK) QUANTITY FILLED 60 COMMENTS TAKES PRN, PATIENT STATED HE HAS 40 REMAINING He is here for a follow up. He did not like the cymbalta so he stopped it. He is not ready to do the SCS yet. Review of Systems Eyes: Negative for blurred vision and double vision. Respiratory: Negative for shortness of breath. Cardiovascular: Negative for chest pain and leg swelling. Gastrointestinal: Positive for constipation. Negative for di arrhea, nausea and vomiting. Genitourinary: Negative for dysuria. Musculoskeletal: Positive for back pain. Skin: Negative for itching. Neurological: Positive for tingling. Negative for dizziness, weakness and headaches. Endo/Heme/Allergies: Does not bruise/bleed easily. Psychiatric/Behavioral: Negative for depression and suicidal ideas. The patient is not nervous/anxious. PAST MEDICAL HISTORY Diagnosis Date - BPH (benign prostatic hyperplasia) 11/08/2013 - Chronic rhinitis 04/17/2015 - Diarrhea IBS, 2007 - Gastroesophageal reflux disease 04/17/2015 - Hyperlipidemia 11/26/2013 - HYPERTENSION NOS 10/18/2005 - Snoring PAST SURGICAL HISTORY Procedure Laterality Date - COLONOSCOP W/ OR W/O BRSH SPEC 12/23/2017 Colonoscopy - COLONOSCOPY W/BX 10/23/07 - EGD W/O OR W/BRUSH/WASH 12/23/2017 EGD - PAST SURGICAL HISTORY OF 2004 back surgery FAMILY HISTORY Problem Relation Age of Onset - Diabetes Mother - Coronary Artery Disease Father several SC's - Stroke Father - Diabetes Father Social History Tobacco Use - Smoking status: Never Smoker - Smokeless tobacco: Former User Types: Chew Substance Use Topics - Alcohol use: No - Drug use: No Current Meds lisinopril (ZESTRIL, PRINIVIL) 40 mg tablet Take 1 tablet by mouth once daily. amLODIPine (NORVASC) 10 mg tablet Take 1 tablet by mouth onc e daily. oxyCODONE-acetaminophen (PERCOCET) 5-325 mg tablet Take 1 ta blet by mouth twice daily as needed (for pain.) for up to 30 days. ibuprofen (MOTRIN) 800 mg tablet Take 800 mg by mouth every 8 hours as needed. gabapentin (NEURONTIN) 800 mg tablet Take 1 tablet by mouth three times daily for 30 days. Objective BP 140/98 Pulse 66 Ht 185.4 cm (6' 1) Wt 97.5 kg (215 lb) BMI 28.37 kg/m? Physical Exam Constitutional: He is well-developed, well-nourished, and in no distress. HENT: Head: Normocephalic and atraumatic. Neck: Normal range of motion. Pulmonary/Chest: Effort normal. Abdominal: Normal appearance. Musculoskeletal: Cervical back: Normal. Lumbar back: He exhibits decreased range of motion and tende rness. Neurological: He is alert. He displays no weakness. A sensor y deficit is present. He has a normal Straight Leg Raise Test. Gait silvio l. Gait normal. Skin: Skin is dry and intact. Psychiatric: Mood, memory, affect and judgment normal. Assessment/Plan 1. Radiculopathy, lumbar region OARRs was completed and is consistent with current reported medications. I will increase his gabapentin to 800mg TID. He will hold off on SCS at this time. Follow up prn. - gabapentin (NEURONTIN) 800 mg tablet; Take 1 tablet by betina th three times daily for 30 days. Dispense: 90 tablet; Refill: 1 2. Lumbar post-laminectomy syndrome 3. Other chronic pain JANA Bartlett on 2019-04-27 CNOV Office Visit (AGSPINE3) Normal 2018 Sarita MICHAEL Busby ([id number]) 1965 M Medical Date Time Provider Department Center 04/27/19 3:00 PM JENNIFER HAWTHORNE ([facility]) AGSPINE3 ([id number]) During your visit today, we recorded the following informati on about you: Pulse Blood pressure Weight Height 66/minute 140/98 97.5 kg 1.854 m Jennifer Hawthorne APRN.CNP, CNP 04/27/2019 3:22 PM Signed Subjective Back Pain This is a chronic problem. The problem occurs co nstantly. The problem has not changed since onset.The pain is present in the lumbar spine. The quality of the pain is described as stabbing. The pain radiates to th e right knee and right foot. The pain is at a severity of 4/10. The pain is moderate. Exacerbated by: walking. The pain is the same all the time. Associated sympt oms include tingling. Pertinent negatives include no chest p ain, no headaches, no dysuria and no weakness. MEDICATION NAME PERCOCET 5/325 MG DATE LAST DOSE TAKEN (LAST WEEK) QUANTITY FILLED 60 COMMENTS TAKES PRN, PATIENT STATED HE HAS 40 REMAINING He is here for a follow up. He did not like the cymbalta so he stopped it. He is not ready to do the SCS yet. Review of Systems Eyes: Negative for blurred vision and double vision. Respiratory: Negative for shortness of breath. Cardiovascular: Negative for chest pain and leg swelling. Gastrointestinal: Positive for constipat ion. Negative for diarrhea, nausea and vomiting. Genitourinary: Negative for dysuria. Musculoskeletal: Positive for back pain. Skin: Negative for itching. Neurological: Positive for tingling. Negative for dizziness, weakness and headaches. Endo/Heme/Allergies: Does not bruise/bleed easily. Psychiatric/Behavioral: Nega tive for depression and suicidal ideas. The patient is not nervous/anxious. PAST MEDICAL HISTORY Diagnosis Date - BPH (benign prostatic hyperplasia) 11/08/2013 - Chronic rhinitis 04/17/2015 - Diarrhea IBS, 2007 - Gastroesophageal reflux disease 04/17/2015 - Hyperlipidemia 11/26/2013 - HYPERTENSION NOS 10/18/2005 - Snoring PAST SURGICAL HISTORY Procedure Laterality Date - COLONOSCOP W/ OR W/O BRSH SPEC 12/23/2017 Colonoscopy - COLONOSCOPY W/BX 10/23/07 - EGD W/O OR W/BRUSH/WASH 12/23/2017 EGD - PAST SURGICAL HISTORY OF 2004 back surgery FAMILY HISTORY Problem Relation Age of Onset - Diabetes Mother - Coronary Artery Disease Father several SC's - Stroke Father - Diabetes Father Social History Tobacco Use - Smoking status: Never Smoker - Smokeless tobacco: Former User Types: Chew Substance Use Topics - Alcohol use: No - Drug use: No Current Meds lisinopril (ZESTRIL, PRINIVIL) 40 mg tab let Take 1 tablet by mouth once daily. amLODIPine (NORVASC) 10 mg tablet Take 1 tablet by mouth onc e daily. oxyCODONE-acetaminophen (PER COCET) 5-325 mg tablet Take 1 tablet by mouth twice daily as needed (for pain.) for up to 30 days. ibuprofen (MOTRIN) 800 mg tablet Take 80 0 mg by mouth every 8 hours as needed. gabapentin (NEURONTIN) 800 mg tablet Take 1 tabl et by mouth three times daily for 30 days. Objective BP 140/98 Pulse 66 Ht 185.4 cm (6' 1) Wt 97.5 kg (215 lb) BMI 28.37 kg/m? Physical Exam Constitutional: He is well-developed, well-nourished, and in no distress. HENT: Head: Normocephalic and atraumatic. Neck: Normal range of motion. Pulmonary/Chest: Effort normal. Abdominal: Normal appearance. Musculoskeletal: Cervical back: Normal. Lumbar back: He exhibits decreased range of motion and tende rness. Neurological: He is alert. He displays no weakness. A sensor y deficit is present. He has a normal Straight Leg Raise Test. Gait nor mal. Gait normal. Skin: Skin is dry and intact. Psychiatric: Mood, memory, affect and judgment normal. Assessment/Plan 1. Radiculopathy, lumbar region OARRs was completed and is consistent with current reported medications. I will increase his gabapentin to 800mg TID. He will hold off on SCS at this time. Follow up prn. - gabapentin (NEURONTIN) 800 mg tablet; Take 1 tablet by betina th three times daily for 30 days. Dispense: 90 tablet; Refill: 1 2. Lumbar post-laminectomy syndrome 3. Other chronic pain Jennifer Hawthorne APRN.FRENCH PROFESSOR Referring Provider: SELF [200] Allergies As of Date: 04/27/2019 (No Known Allergies) Date Reviewed: 04/27/2019 Reviewed by: Lou Fair LPN - Fully Assessed Reason for Visit: Follow Up [171] Primary Visit Diagnosis:Radiculopathy, lumbar region [M54.16 ] Other Visit Diagnoses:Lumbar post-laminectomy syndrome [M96. 1] Other chronic pain [G89.29] Order(s):gabapentin (NEURONTIN) 800 mg tabletTake 1 tablet b y mouth three times daily for 30 days.Disp: 90 tabletRfl: 1 Prescriptions as of 04/27/2019 Sig: LISINOPRIL 40 MG TABLET Take 1 tablet by mouth once d* AMLODIPINE 10 MG TABLET Take 1 tablet by mouth once d* OXYCODONE-ACETAMINOPHEN 5 MG-* Take 1 tablet by mouth twice * IBUPROFEN 800 MG TABLET Take 800 mg by mouth every 8 * GABAPENTIN 800 MG TABLET Take 1 tablet by mouth three * Medication notes this encounter DULOXETINE 30 MG CAPSULE,DELAYED RELEASE >> Lou Fair LPN 04/27/2019 2:19 PM >> YANELIS MONTEJO LOU Matthew Apr 27, 2019 2:19 PM NOT TAKING Problem List As Of Date 04/27/2019 Noted Resolved Essential hypertension [I10] 10/18/2005 OBESITY [E66.9] 10/18/2005 04/17/2015 Diarrhea [R19.7] 10/27/2007 04/17/2015 BPH (benign prostatic hyperplasia) [N40.0] 11/08/2013 Hyperlipidemia [E78.5] 11/26/2013 Blood glucose abnormal [R73.09] 11/26/2013 06/02/2018 Gastroesophageal reflux disease [K21.9] 04/17/2015 Chronic rhinitis [J31.0] 04/17/2015 Kidney insufficiency [N28.9] 05/14/2018 06/20/2018 Lumbar radiculopathy [M54.16] 05/08/2018 Prescriptions ordered this encounter Disp Refills Start End GABAPENTIN 800 MG TABLET 90 t* 1 04/27/2019 05/27/2019 Route: ORAL Sig: Take 1 tablet by mouth three times daily for 30 days. Medications Discontinued During This Encounter DULoxetine (CYMBALTA) 30 mg capsule 30 c* 0 03/22/201904/27 Route: ORAL Sig: Take 1 capsule by mouth once daily. Disc: Other pregabalin (LYRICA) 100 mg capsule 04/27/2019 Class: Historical Med Route: ORAL Sig: Take 100 mg by mouth twice daily. Disc: Reason for discontinue is not on file. Questionnaire: AG SPINE PAIN PILL COUNT MEDICATION NAME -> PERCOCET 5/325 MG DATE LAST DOSE TAKEN -> Cmt: LAST WEEK QUANTITY FILLED -> 60 COMMENTS -> TAKES PRN, PATIENT STATED HE HAS 40 REMAINING Encounter Status:Closed by JENNIFER HAWTHORNE CNP on 04/27/19 office visit: workers comp - follow-up dinah y complaint, rm: 9 on 2019-04-04 NEGATED: Highlighted of the left foot on 04-04-2019 - [facility] rowxray history 03/14/2019 at 04-04-2019 [facility] ([id number]) clinical summary: [email or web address] on 2019-04-04 OOP 04-04-2019 - 04-04-2019 [facility] [place] [facility] josias ([id number]) progress on 2019-03 PROGRESS HNO ID: [id number] Normal 03-22-2019 Kian Cedillo Author: [facility], [place], [facility] Service: ? ([id number]) Author Type: Physician Type: Progress Notes Filed: 03/22/2019 5:18 PM Note Text: Subjective HPI Michael Chase is a 53 [facility] He had a visit with PMANDR and had a EMG completed. He reports that his discomfort is in the right buttock and down to his foot. His gabapentin at 600 mg TID is helpful and cuts the edge of his pain down to a tolerable. He did look into the SCS and if he he does procee d forward he would like a MRI safe system. Review of Systems Eyes: Negative for blurred vision and double vision. Respiratory: Negative for shortness of breath. Cardiovascular: Negative for chest pain and leg swelling. Gastrointestinal: Positive for constipation. Negative for di arrhea, nausea and vomiting. Genitourinary: Negative for dysuria. Skin: Negative for itching. Neurological: Positive for weakness. Negative for dizziness, tingling and headaches. Endo/Heme/Allergies: Does not bruise/bleed easily. Psychiatric/Behavioral: Negative for depression and suicidal ideas. The patient is not nervous/anxious. PAST MEDICAL HISTORY Diagnosis Date - BPH (benign prostatic hyperplasia) 11/08/2013 - Chronic rhinitis 04/17/2015 - Diarrhea IBS, 2007 - Gastroesophageal reflux disease 04/17/2015 - Hyperlipidemia 11/26/2013 - HYPERTENSION NOS 10/18/2005 - Snoring PAST SURGICAL HISTORY Procedure Laterality Date - COLONOSCOP W/ OR W/O BRSH SPEC 12/23/2017 Colonoscopy - COLONOSCOPY W/BX 10/23/07 - EGD W/O OR W/BRUSH/WASH 12/23/2017 EGD - PAST SURGICAL HISTORY OF 2004 back surgery FAMILY HISTORY Problem Relation Age of Onset - Diabetes Mother - Coronary Artery Disease Father several SC's - Stroke Father - Diabetes Father Social History Socioeconomic History Marital status: Spouse name: Not on file Number of children: 2 Years of education: Not on file Highest education level: Not on file Occupational History Not on file Social Needs Financial resource strain: Not on file Food insecurity: Worry: Not on file Inability: Not on file Transportation needs: Medical: Not on file Non-medical: Not on file Tobacco Use Smoking status: Never Smoker Smokeless tobacco: Former User Types: Chew Substance and Sexual Activity Alcohol use: No Drug use: No Sexual activity: Not on file Lifestyle Physical activity: Days per week: Not on file Minutes per session: Not on file Stress: Not on file Relationships Social connections: Talks on phone: Not on file Gets together: Not on file Attends muslim service: Not on file Active member of club or organization: Not on file Attends meetings of clubs or organizations: Not on file Relationship status: Not on file Intimate partner violence: Fear of current or ex partner: Not on file Emotionally abused: Not on file Physically abused: Not on file Forced sexual activity: Not on file Other Topics Concerns: Service: Not Asked Blood Transfusions: Not Asked Caffeine Concern: No Occupational Exposure: Not Asked Hobby Hazards: Not Asked Sleep Concern: Not Asked Stress Concern: Not Asked Weight Concern: Not Asked Special Diet: No Back Care: Not Asked Exercise: Yes Bike Helmet: Not Asked Seat Belt: Not Asked Self-Exams: Not Asked Social History Narrative Not on file Current Meds pregabalin (LYRICA) 100 mg capsule Take 100 mg by mouth twic e daily. lisinopril (ZESTRIL, PRINIVIL) 40 mg tablet Take 1 tablet by mouth once daily. amLODIPine (NORVASC) 10 mg tablet Take 1 tablet by mouth onc e daily. oxyCODONE-acetaminophen (PERCOCET) 5-325 mg tablet Take 1 ta blet by mouth twice daily as needed (for pain.) for up to 30 days. ibuprofen (MOTRIN) 800 mg tablet Take 800 mg by mouth every 8 hours as needed. Objective There were no vitals taken for this visit. Physical Exam Constitutional: He is oriented to person, place, and time an d well-developed, well-nourished, and in no distress. HENT: Head: Normocephalic and atraumatic. Head is without abrasion and without contusion. Hair is normal. Right Ear: Hearing normal. Left Ear: Hearing normal. Nose: No rhinorrhea. Mouth/Throat: No oropharyngeal exudate. Eyes: Lids are normal. Right eye exhibits no discharge. Left eye exhibits no discharge. Right conjunctiva is not injected. Left conjun ctiva is not injected. Neck: Normal range of motion. No JVD present. No spinous pro cess tenderness present. Cardiovascular: Normal rate. Pulmonary/Chest: Effort normal. No stridor. No apnea and no tachypnea. No respiratory distress. Abdominal: Normal appearance. He exhibits no distension. Musculoskeletal: Normal range of motion. Lumbar back: Normal. Lymphadenopathy: He has no cervical adenopathy. Neurological: He is alert and oriented to person, place, and time. He has normal strength. He is not agitated and not disoriented. A s ensory deficit (right leg) is present. He exhibits normal muscle tone. Gait normal. Coordination and gait normal. Skin: Skin is warm and dry. No lesion noted. Psychiatric: Mood, memory, affect and judgment normal. Nursing note and vitals reviewed. Assessment and Plan I had a nice discussion with the patient today about their c urrent pain and the pathology that could be causing it. We discussed dif ferent treatment options. Our plan will be as follows: 1. Lumbar post-laminectomy syndrome Patient with chronic right leg pain, numbness, and paresthes ias after his L5/S1 herniation and surgery. He is now almost 1 year after surgery and still has symptoms. He is a great candidate for a SCS. I adelfo l refer him to Dr. Fields for psych clearance and move forward with a S CS trial with BSN. - CONSULT TO PSYCHOLOGY; Future 2. Radiculopathy, lumbar reg ion I will add cymbalta 30 mg q day to his regimen. Patient educ ated about adverse side effects. 3. Other chronic pain - CONSULT TO PSYCHOLOGY; Future cnov on 2019-03-22 CNOV Office Visit (AGSPINE3) Normal 2018 [facility] MICHAEL CHASE ([id number]) 1965 M Medical Date Time Provider Department Center 03/22/19 4:30 PM NIMESH GOLDEN AGSPINE3 ([id number]) During your visit today, we recorded the following informati on about you: Pulse Blood pressure Weight Height 83/minute 176/88 97.5 kg 1.854 m Nimesh Golden MD 03/22/2019 5:18 PM Signed Subjective HPI Michael Chase is a 53 year old male who present s today for follow up. He had a visit with PMANDR and had a EMG completed. He repor ts that his discomfort is in the right buttock and d own to his foot. His gabapentin at 600 mg TID is helpful and cuts the edge of his pain down to a tolerable. He did look into the SCS and if he he does proceed forward he would like a MRI safe system. Review of Systems Eyes: Negative for blurred vision and double vision. Respiratory: Negative for shortness of breath. Cardiovascular: Negative for chest pain and leg swelling. Gastrointestinal: Positive for constipat ion. Negative for diarrhea, nausea and vomiting. Genitourinary: Negative for dysuria. Skin: Negative for itching. Neurological: Positive for weakness. Negative for dizziness, tingling and headaches. Endo/Heme/Allergies: Does not bruise/bleed easily. Psychiatric/Behavioral: Nega tive for depression and suicidal ideas. The patient is not nervous/anxious. PAST MEDICAL HISTORY Diagnosis Date - BPH (benign prostatic hyperplasia) 11/08/2013 - Chronic rhinitis 04/17/2015 - Diarrhea IBS, 2007 - Gastroesophageal reflux disease 04/17/2015 - Hyperlipidemia 11/26/2013 - HYPERTENSION NOS 10/18/2005 - Snoring PAST SURGICAL HISTORY Procedure Laterality Date - COLONOSCOP W/ OR W/O BRSH SPEC 12/23/2017 Colonoscopy - COLONOSCOPY W/BX 10/23/07 - EGD W/O OR W/BRUSH/WASH 12/23/2017 EGD - PAST SURGICAL HISTORY OF 2004 back surgery FAMILY HISTORY Problem Relation Age of Onset - Diabetes Mother - Coronary Artery Disease Father several SC's - Stroke Father - Diabetes Father Social History Socioeconomic History Marital status: Spouse name: Not on file Number of children: 2 Years of education: Not on file Highest education level: Not on file Occupational History Not on file Social Needs Financial resource strain: Not on file Food insecurity: Worry: Not on file Inability: Not on file Transportation needs: Medical: Not on file Non-medical: Not on file Tobacco Use Smoking status: Never Smoker Smokeless tobacco: Former User Types: Chew Substance and Sexual Activity Alcohol use: No Drug use: No Sexual activity: Not on file Lifestyle Physical activity: Days per week: Not on file Minutes per session: Not on file Stress: Not on file Relationships Social connections: Talks on phone: Not on file Gets together: Not on file Attends muslim service: Not on file Active member of club or organization: Not on file Attends meetings of clubs or organizations: Not on file Relationship status: Not on file Intimate partner violence: Fear of current or ex partner: Not on file Emotionally abused: Not on file Physically abused: Not on file Forced sexual activity: Not on file Other Topics Concerns: Service: Not Asked Blood Transfusions: Not Asked Caffeine Concern: No Occupational Exposure: Not Asked Hobby Hazards: Not Asked Sleep Concern: Not Asked Stress Concern: Not Asked Weight Concern: Not Asked Special Diet: No Back Care: Not Asked Exercise: Yes Bike Helmet: Not Asked Seat Belt: Not Asked Self-Exams: Not Asked Social History Narrative Not on file Current Meds pregabalin (LYRICA) 100 mg capsule Take 100 mg by mouth twic e daily. lisinopril (ZESTRIL, PRINIVIL) 40 mg tab let Take 1 tablet by mouth once daily. amLODIPine (NORVASC) 10 mg tablet Take 1 tablet by mouth onc e daily. oxyCODONE-acetaminophen (PER COCET) 5-325 mg tablet Take 1 tablet by mouth twice daily as needed (for pain.) for up to 30 days. ibuprofen (MOTRIN) 800 mg tablet Take 80 0 mg by mouth every 8 hours as needed. Objective There were no vitals taken for this visit. Physical Exam Constitutional: He is oriented to person, place, and time and well-developed, well-nourished, and in no distress. HENT: Head: Normocephalic and atraumatic. Head is without abrasion and without contusion. Hair is normal. Right Ear: Hearing normal. Left Ear: Hearing normal. Nose: No rhinorrhea. Mouth/Throat: No oropharyngeal exudate. Eyes: Lids are normal. Right eye exhibits no discharge . Left eye exhibits no discharge. Right conjunctiva is not injected. Left conjunctiva is not injected. Neck: Normal range of motion. No JVD present. No spinous p rocess tenderness present. Cardiovascular: Normal rate. Pulmonary/Chest: Effort normal. No stridor. No apnea and no tachypnea. No respiratory distress. Abdominal: Normal appearance. He exhibits no distension. Musculoskeletal: Normal range of motion. Lumbar back: Normal. Lymphadenopathy: He has no cervical adenopathy. Neurological: He is alert and oriented to person, place, and time. He has normal strength. He is not agitated and not disoriented. A s ensory deficit (right leg) is present. He exhibits normal muscle tone. Gait normal. Coordination and gait normal. Skin: Skin is warm and dry. No lesion noted. Psychiatric: Mood, memory, affect and judgment normal. Nursing note and vitals reviewed. Assessment and Plan I had a nice discussion with the patient today about their current pain and the pathology that could be causing it. We discussed different treatment options. Our plan will be as follows: 1. Lumbar post-laminectomy syndrome Patient with chronic right l eg pain, numbness, and paresthesias after his L5/S1 herniation and surgery. He is now almost 1 year after surg isi and still has symptoms. He is a great candidate for a SCS. I will re kacie him to Dr. Fields for psych clearance and move forward with a SCS trial with Dinah MOODY. - CONSULT TO PSYCHOLOGY; Future 2. Radiculopathy, lumbar region I will add cymbalta 30 mg q day to his r egimen. Patient educated about adverse side effects. 3. Other chronic pain - CONSULT TO PSYCHOLOGY; Future Referring Provider: YANN BOLAND [[id number]] Allergies As of Date: 03/22/2019 (No Known Allergies) Date Reviewed: 03/22/2019 Reviewed by: Ming Wallace - Fully Assessed Reason for Visit: Follow Up [171] Cmt: 6 week Primary Visit Diagnosis:Lumbar post-laminectomy syndrome [M9 6.1] Other Visit Diagnoses:Radiculopathy, lumbar region [M54.16] Other chronic pain [G89.29] Order(s):CONSULT TO PSYCHOLOGY [7290] Order #: [id number] : 1 FUTURE DULoxetine (CYMBALTA) 30 mg capsuleTake 1 capsule by mouth o nce daily.Disp: 30 capsuleRfl: 0 Prescriptions as of 03/22/2019 Sig: PREGABALIN 100 MG CAPSULE Take 100 mg by mouth twice da* LISINOPRIL 40 MG TABLET Take 1 tablet by mouth once d* AMLODIPINE 10 MG TABLET Take 1 tablet by mouth once d* OXYCODONE-ACETAMINOPHEN 5 MG-* Take 1 tablet by mouth twice * IBUPROFEN 800 MG TABLET Take 800 mg by mouth every 8 * DULOXETINE 30 MG CAPSULE,QUITA* Take 1 capsule by mouth once * Problem List As Of Date 03/22/2019 Noted Resolved Essential hypertension [I10] INVALID FOR* OBESITY [E66.9] INVALID FOR*04/17/2015 Diarrhea [R19.7] INVALID FOR*04/17/2015 BPH (benign prostatic hyperplasia) [N40.0] INVALID FOR* Hyperlipidemia [E78.5] INVALID FOR* Blood glucose abnormal [R73.09] INVALID FOR*06/02/2018 Gastroesophageal reflux disease [K21.9] INVALID FOR* Chronic rhinitis [J31.0] INVALID FOR* Kidney insufficiency [N28.9] INVALID FOR*06/20/2018 Lumbar radiculopathy [M54.16] INVALID FOR* Prescriptions ordered this encounter Disp Refills Start End DULOXETINE 30 MG CAPSULE,DELAYED REL* 30 c* 0 03/22/2019 Route: ORAL Sig: Take 1 capsule by mouth once daily. Encounter Status:Closed by NIMESH GOLDEN MD on 03/22/19 office visit: workers comp - follow-up b y complaint, rm: 10 on 2019-03-14 NEGATED: Highlighted of the left foot on 03-14-2019 - [facility] rowxray history 02/28/2019 at 03-14-2019 [facility] ([id number]) clinical summary: [email or web address] on 2019-03-14 OOP 03-14-2019 - 03-14-2019 [facility] Shadia ferrara ([id number]) progress on 2019-03 PROGRESS HNO ID: [id number] Normal 03-10-2019 [facility] Author: Jonathan Christine [place] ([id number]) Service: ? Author Type: Physician Type: Progress Notes Filed: 03/10/2019 11:17 AM Note Text: This note was created using Qubritriter. Subjective Michael Chase is a 53 year old male. He was here for foll ow up of hypertension which was now controlled. Medication refills we re needed. He was mainly dealing with chronic low back pain and seeing specialists for that. He also fractured his left foot recently. ACTIVE PROBLEM LIST Essential Hypertension Bph (Benign Prostatic Hyperplasia) Hyperlipidemia Gastroesophageal Reflux Disease Chronic Rhinitis Current Outpatient Medications: pregabalin (LYRICA) 100 mg capsule Take 100 mg by mouth twic e daily. lisinopril (ZESTRIL, PRINIVIL) 40 mg tablet Take 1 tablet by mouth once daily. amLODIPine (NORVASC) 10 mg tablet Take 1 tablet by mouth onc e daily. oxyCODONE-acetaminophen (PERCOCET) 5-325 mg tablet Take 1 ta blet by mouth twice daily as needed (for pain.) for up to 30 days. ibuprofen (MOTRIN) 800 mg tablet Take 800 mg by mouth every 8 hours as needed. No current facility-administered medications for this visit. Review of Systems Constitutional: Negative. Respiratory: Negative. Cardiovascular: Negative. Gastrointestinal: Negative. Neurological: Negative. Objective BP 112/77 (BP Site: Left Arm, BP Position: Sitting, BP Cuff Size: Regular Adult) Pulse (!) 56 Resp 16 Wt 98.9 kg (218 lb) BMI 28.76 kg/m? Physical Exam Constitutional: He appears well-nourished. No distress. Cardiovascular: Normal rate, regular rhythm and normal heart sounds. Pulmonary/Chest: Breath sounds normal. Musculoskeletal: He exhibits no edema. Post op shoe left foot. Neurological: He is alert. Coordination normal. Assessment and Plan 1. Essential hypertension - ICD9: 401.9, ICD10: I10 - good control - LISINOPRIL 40 MG TABLET - AMLODIPINE 10 MG TABLET Discussed medication dosage, usage, goals of therapy, and si de effects. Goal BP <130/80. Follow up every 6 months recommended. - CBC - COMP METABOLIC PANEL - LIPID PANEL BASIC Jonathan Christine MD cnov on 2019-03-10 CNOV Office Visit (INTMWS) Normal 03-10-20 [place] [facility] MICHAEL CHASE ([id number]) 1965 M [place] Date Time Provider Department ([id number]) 03/10/19 10:20 AM JONATHAN CHRISTINE INTMWS During your visit today, we recorded the following informati on about you: Pulse Respiration Blood pressure Weight 56/minute 16/minute 112/77 98.9 kg Jonathan Christine MD 03/10/2019 11:17 AM Signed This note was created using Qubritriter. Subjective Michael Chase is a 53 year old male. He was here for foll ow up of hypertension which was now controlled. Medicatio n refills were needed. He was mainly dealing with chronic low back pain and se [facility] specialists for that. He also fractured his left foot recently. ACTIVE PROBLEM LIST Essential Hypertension Bph (Benign Prostatic Hyperplasia) Hyperlipidemia Gastroesophageal Reflux Disease Chronic Rhinitis Current Outpatient Medications: pregabalin (LYRICA) 100 mg capsule Take 100 mg by mouth twic e daily. lisinopril (ZESTRIL, PRINIVIL) 40 mg tab let Take 1 tablet by mouth once daily. amLODIPine (NORVASC) 10 mg tablet Take 1 tablet by mouth onc e daily. oxyCODONE-acetaminophen (PER COCET) 5-325 mg tablet Take 1 tablet by mouth twice daily as needed (for pain.) for up to 30 days. ibuprofen (MOTRIN) 800 mg tablet Take 80 0 mg by mouth every 8 hours as needed. No current facility-administered medications for this visit. Review of Systems Constitutional: Negative. Respiratory: Negative. Cardiovascular: Negative. Gastrointestinal: Negative. Neurological: Negative. Objective BP 112/77 (BP Site: Left Arm, BP Position: Sitting, BP Cuff Size: Regular Adult) Pulse (!) 56 Resp 16 Wt 98.9 kg (218 lb) BMI 28.76 kg/m? Physical Exam Constitutional: He appears well-nourished. No distress. Cardiovascular: Normal rate, regular rhythm and normal heart sounds. Pulmonary/Chest: Breath sounds normal. Musculoskeletal: He exhibits no edema. Post op shoe left foot. Neurological: He is alert. Coordination normal. Assessment and Plan 1. Essential hypertension - ICD9: 401.9, ICD10: I10 - good control - LISINOPRIL 40 MG TABLET - AMLODIPINE 10 MG TABLET Discussed medication dosage, usage, goals of therapy, and si de effects. Goal BP <130/80. Follow up every 6 months recommended. - CBC - COMP METABOLIC PANEL - LIPID PANEL BASIC Jonathan Christine MD Referring Provider: SELF [[id number]] Allergies As of Date: 03/10/2019 (No Known Allergies) Date Reviewed: 03/10/2019 Reviewed by: Daniela Stein LPN - Fully Assessed Reason for Visit: Blood Pressure [15] Visit Diagnosis:Essential hypertension [I10] Order(s):lisinopril (ZESTRIL, PRINIVIL) 40 mg tabletTake 1 t ablet by mouth once daily.Disp: 90 tabletRfl: 3 amLODIPine (NORVASC) 10 mg tabletTake 1 tablet by mouth once daily.Disp: 90 tabletRfl: 3 CBC [SQCBC] Order #: [id number] FUTURE COMP METABOLIC PANEL [SQCMP] Order #: [id number] FUTURE LIPID PANEL BASIC [SQLIPB] Order #: [id number] FUTURE Prescriptions as of 03/10/2019 Sig: PREGABALIN 100 MG CAPSULE Take 100 mg by mouth twice da* LISINOPRIL 40 MG TABLET Take 1 tablet by mouth once d* AMLODIPINE 10 MG TABLET Take 1 tablet by mouth once d* OXYCODONE-ACETAMINOPHEN 5 MG-* Take 1 tablet by mouth twice * IBUPROFEN 800 MG TABLET Take 800 mg by mouth every 8 * Problem List As Of Date 03/10/2019 Noted Resolved Essential hypertension [I10] INVALID FOR* OBESITY [E66.9] INVALID FOR*04/17/2015 Diarrhea [R19.7] INVALID FOR*04/17/2015 BPH (benign prostatic hyperplasia) [N40.0] INVALID FOR* Hyperlipidemia [E78.5] INVALID FOR* Blood glucose abnormal [R73.09] INVALID FOR*06/02/2018 Gastroesophageal reflux disease [K21.9] INVALID FOR* Chronic rhinitis [J31.0] INVALID FOR* Kidney insufficiency [N28.9] INVALID FOR*06/20/2018 Lumbar radiculopathy [M54.16] INVALID FOR* Prescriptions ordered this encounter Disp Refills Start End LISINOPRIL 40 MG TABLET 90 t* 3 03/10/2019 Route: ORAL Sig: Take 1 tablet by mouth once daily. AMLODIPINE 10 MG TABLET 90 t* 3 03/10/2019 Route: ORAL Sig: Take 1 tablet by mouth once daily. Medications Discontinued During This Encounter lisinopril (ZESTRIL, PRINIVIL) 40 mg* 90 t* 0 12/26/201803/10 Route: ORAL Sig: Take 1 tablet by mouth once daily. Disc: Reason for discontinue is not on file. amLODIPine (NORVASC) 10 mg tablet 90 t* 0 12/08/2018 03/10/2019 Route: ORAL Sig: Take 1 tablet by mouth once daily. Disc: Reason for discontinue is not on file. gabapentin (NEURONTIN) 600 mg tablet 90 t* 0 07/04/20182018 Route: ORAL Sig: Take 1 tablet by mouth three times daily for 30 days. Patient not taking: Reported on 03/10/2019 Disc: Reason for discontinue is not on file. Disposition: Return in about 6 months (around 09/09/2019). Follow-up and Disposition History Recorded Encounter Status:Closed by JONATHAN CHRISTINE MD on 03/10/19 clinical summary: hmspatientid on 2019-02-28 OOP 02-28-2018 - 02-28-[address] [facility] josias ([id number]) office visit: postop - 1st visit, rm: 32 on 2018-07-13 NEGATED: Highlighted Done 07-13-2018 [facility] rowProtein [facility] ([id number]) clinical summary: hmspatientid on 2018-07-13 OOP 07-13-2018 - 07-13-[address] [facility] ([id number]) office visit: new - 1st visit with yang massey, rm: 40 on 2018-05-08 NEGATED: Done Invalid Interpretation 018 - [facility] Highlighted Code 05-08-2018 [facility] rowProtein mass - [facility] ([id number]) clinical summary: scanned ros summary on 2018-05-08 endocrine ROS Denies Invalid 05-08-2018 - [facility] Interpretation 05-08-2018 [facility] Code Center - [facility] ([id number]) Gastrointestional Constipation,H Invalid 018 - [facility] review of systems, emorrhoids Interpretation 05-08 [facility] comment Code Center - [facility] ([id number]) genitourinary review Complains Invalid 8 - [facility] of systems, E&M Interpretation 8 [facility] - [facility] ([id number]) genitourinary system Painful Invalid 8 - [facility] review of systems, Urination Interpretation 2017 [facility] comments Code Center - [facility] ([id number]) Lymphocytes Auto Denies Invalid 05-08-2018 - [facility] #/vol (Bld) Interpretation 05-08-2018 [facility] - [facility] ([id number]) Review of Systems Numbness,Tingl Invalid 018 - [facility] Neurologic comment ing,Loss Of Interpretation [facility] Balance,Weakne Code Cente r - ss [facility] ([id number]) ROS cardiovascular Denies Invalid 05-08-2018 - [facility] E&M Interpretation 05-08-2018 [facility] - [facility] ([id number]) ROS ENT E&M Denies Invalid 05-08-2018 [facility] Interpretation 05-08-2018 [facility] ([id number]) ROS gastrointestinal Complains Invalid 8 - [facility] E&M Interpretation 05-08-2018 [facility] - [facility] ([id number]) ROS general E&M Denies Invalid 05-08-2018 - [facility] Interpretation 05-08-2018 [facility] - [facility] ([id number]) ROS Musculoskeletal Muscle Invalid 05-08-2018 - [facility] comments Cramps,Pain Interpretation 05-08-2018 [facility] - [facility] ([id number]) ROS musculoskeletal Complains Invalid 05-08-2018 - [facility] E&M Interpretation 05-08-2018 [facility] - [facility] ([id number]) ROS neurological E&M Complains Invalid 8 - [facility] Interpretation 05-08-2018 [facility] - [facility] ([id number]) ROS Psych comment Difficulty Invalid 05-08-2018 - [facility] Sleeping Interpretation 05-08-2018 [facility] Code [facility] - [facility] ([id number]) ROS psychiatric E&M Complains Invalid 05-08-2018 - [facility] Interpretation 05-08-2018 [facility] Code [facility] - [facility] ([id number]) ROS pulmonary E&M Denies Invalid 05-08-2018 - [facility] Interpretation 05-08-2018 [facility] - [facility] ([id number]) ROS skin E&M Denies Invalid 05-08-2018 - [facility] Interpretation 05-08-2018 [facility] Code [facility] - [facility] ([id number]) clinical summary: hmspatientid on 2018-05-08 OOP Invalid 05-08-2018 - [facility] Interpretation Code 05-08-2018 [facility] [place] [facility] ([id number]) clinical summary: scanned history summar y on 2018-05-03 cause of , Heart/stroke Invalid 05-03-2018 - [facility] father Interpretation 05-03-2018 [facility] Code [place] - [facility] ([id number]) data entered by No Invalid 05-03-2018 - [facility] patient, alcohol Interpretation 05-03-20 18 [facility] (ethanol or ETOH) Code Ce nter - use [facility] ([id number]) Data entered by I don't have any Invalid 018 - [facility] patient, allergy Drug AllergiesI Interpretation [facility] list don't have any Code Cente r - Environmental Orthop [facility] AllergiesI don't Saima geons have any [facility] ([id number]) Allergies data entered by No Invalid 05-03-2018 [facility] patient, drug (of Interpretation 018 [facility] abuse) use Code [facility] ([id number]) data entered by employed Invalid 05-03-2018 [facility] patient, Employer Interpretation 018 [facility] Name Code [facility] ([id number]) data entered by No Invalid 05-03-2018 [facility] patient, exercise Interpretation 018 [facility] history Code [facility] ([id number]) data entered by Heart diseaseHigh Invalid 2017 [facility] patient, father's blood Interpretation 018 [facility] medical history pressureStroke/TIA Code [facility] ([id number]) data entered by Alzheimer Invalid 05-03-[address] [facility], mother's Interpretation 018 [facility] medical history Code [facility] ([id number]) data entered by High blood Invalid 05-03-2018 - [facility] patient, past pressureIrritable Interpretation [facility] medical history bowel syndrome Code [facility] ([id number]) data entered by never smoker Invalid 05-03-2018 [facility] patient, social Interpretation 8 [facility] history, current Code Jakub ter - smoker [facility] ([id number]) data entered by Invalid 05-03-2018 [facility] patient, social Interpretation 8 [facility] history, marital Code Jakub ter - status [facility] ([id number]) data entered by Electrical Invalid 05-03-2018 [facility] 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, 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 Interpretation 05-03-20 18 [facility] history, Code Center - occupation Orthopaed ic [facility] ([id number]) father of patient Invalid 05-03-2018 - [facility] is alive or Interpretation 05-03-2018 Or [facility]opa[facility] Code [facility] ([id number]) Housing Type: house Invalid 05-03-2018 - [facility] apartment, house, Interpretation 018 [facility] long term, trailer, Code Ce nter - none [facility] ([id number]) housing unit size 1 floor Invalid 05-03-2018 - [facility] (asthma Interpretation 05-03-2018 Orth opaedic environmental Code Center - history, housing) Or [facility]opaedic (from single Surgeon s family to don't Clin ic ([id number]) know) medical history ObesityVascular Invalid 05-03-20 18 - [facility] of patient's disease Interpretation 05-03-2018 O rthopaedic sister Code [facility] - [facility] ([phone]) mother of patient Alive Invalid 05-03-2018 - [facility] is alive or Interpretation 05-03-2018 Or thopaedic Code [facility] - [facility] ([phone]) Number of No Invalid 05-03-2018 - [facility] dependent Interpretation 05-03-2018 Orth opaedic children Code [place] - [facility] (12 [phone]) Protein mass conc [id number] Invalid 1 07-03-2017 - [facility] [id number] Interpretation 04-07 Orthopaedic n needed Code Center - [facility] (16 [phone]) Web entered I do not know what Invalid [facility] surgical history my back surgery was Interpretatio n 05-03-2018 Orthopaedic comments considered in 2004 Code C enter - [facility] ([id number]) clinical lists update: preload extended on 2018-05-03 Tobacco never smoker Invalid 05-03-2018 - [facility] smoking status Interpretation Code 05-03 Orthopaedic NHIS Center - Orthopaedi c Surgeons C josias ([id number]) ed provider note on 2018-04-28 Protein mass Triage Chief Complaint:Back Pain Norm al 04-28-2018 [facility] conc (right leg numbness x 1 week, System (10805) has had back surgery in 2004 with Joselyn Boland at [facility])[place]:Michael Chase is a 52 y.o. male that presents ongoing right-sided buttockpain. Patient stated this been ongoing for the last couple weeks. This doesradiate down the back of his leg. He denies any weakness, contralateral legpain or numbness. Patient states he is concerned that he may exacerbate this atwork. He denies any traumatic initiating factors. States he has presented toother emergency departments informed of the need to undergo an magneticresonance imaging. Patient does have an appointment in 10 days for anorthopedic visit. Patient is wondering feeding it appointment sooner perhapsmagnetic resonance imaging today.ROS:At least 10 systems reviewed and otherwise acutely negative except as in theHOPI.No past medical history on file.No past surgical history on file.No family history on file.Social HistorySocial History? Marital status: Spouse name: N/A? Number of children: N/A? Years of education: N/AOccupational History? Not on file.Social History Main Topics? Smoking status: Not on file? Smokeless tobacco: Not on file? Alcohol use Not on file? Drug use: Unknown? Sexual activity: Not on fileOther Topics Concern? Not on fileSocial History Narrative? No narrative on fileCurrent Facility-Administered MedicationsMedication Dose Route Frequency Provider Last Rate Last Dose? gabapentin (NEURONTIN) capsule 100 mg 100 mg Oral Once ZORA Covarrubiasurrent Outpatient PrescriptionsMedication Sig Dispense Refill? gabapentin (NEURONTIN) 100 MG capsule Take 1 capsule by mouth 2 times dailyfor 14 days.. 28 capsule 0No Known AllergiesNursing Notes ReviewedPhysical Exam:ED Triage Vitals [04/28/18 1311]Enc Vitals Group BP (!) 161/119 Pulse 83 Resp 20 Temp 97.7 ?F (36.5 ?C) Temp Source Oral SpO2 100 % Weight 210 lb (95.3 kg) Height 6' 1 (1.854 m) Head Circumference Peak Flow Pain Score Pain Loc Pain Edu? Excl. in GC?GENERAL APPEARANCE: Awake and alert. Cooperative. No acute distress.HEAD: Normocephalic. Atraumatic.EYES: Sclera anicteric.ENT: Tolerates saliva. No trismus.NECK: Supple. Trachea midline.CARDIO: Normal heart sounds. Radial pulse 2+.LUNGS: Respirations unlabored. CTAB.ABDOMEN: Soft. Non-distended. Non-tender.EXTREMITIES: No acute deformities. Positive straight leg test on the right.Negative straight leg test on the left.MUSCULOSKELETAL: No tenderness nor step-off to the midline cervical, thoracic orlumbar spine.SKIN: Warm and dry.NEUROLOGICAL: No gross facial drooping.PSYCHIATRIC: Normal mood.I have reviewed and interpreted all of the currently available lab results fromthis visit (if applicable):No results found for this visit on 04/28/18.Radiographs (if obtained):No results found.Chart review shows recent radiographs:No results found.MDM:Patient's a 52-year-old gentleman who presents with ongoing sciatica. Thepatient has no weakness in the leg. Not concerned for cauda equina. I didcontact the orthopedic team to see if potentially patient did undergo a soonerappointment. They stated that the patient will continue with his currentappointment. They did give the patient an option of seeing a different groupand this is been provided with discharge paperwork. The patient was also givena dose of gabapentin as well as a 2 week supply. I do not believe the patientwarrants any imaging at this point and he should continue with his previouslyestablished appointment for potential arrangement of an magnetic resonanceimaging if deemed appropriate.The patient was informed if they were to develop any new or concerning symptomsthey should return to the emergency department immediately. They had noquestions at the time of discharge and they were discharged in fair and stablecondition.Clinical Impression:1. Sciatica of right sideDisposition referral (if applicable):Yann Boland, [id number] [facility], [address] [place] [address] [phone] follow up at your previously established appointmentComment: Please note this report has been produced using speech recognitionsoftware and may contain errors related to that system including errors ingrammar, punctuation, and spelling, as well as words and phrases that may beinappropriate. If there are any questions or concerns please feel free tocontact the dictating provider for clarification.Mitesh Can, DO04/28/18 1339 Vital Signs Vital Sign Description Value / Unit Date Location The following section is limited to 5 en tries per type and includes entries from the following time range: 20190314 - 20190308 0. NEGATED: Highlighted 28.2 kg/m2 04-04-2019 - 04-04-2019 [facility] rowBMI (Body Mass Index) [facility] Orthopaedic [facility] ([id number]) NEGATED: Highlighted 28.2 kg/m2 03-14-2019 - 03-14-2019 [facility] rowBMI (Body Mass Index) [facility] Orthopaedic [facility] (29416) NEGATED: Highlighted 28.2 kg/m2 02-28-2019 - 02-28-2019 [facility] rowBMI (Body Mass Index) [facility] (40763) NEGATED: Highlighted 28.2 kg/m2 01-25-2019 - 01-25-2019 [facility] rowBMI (Body Mass Index) [facility] Orthopaedic [facility]urg [facility] ([id number]) NEGATED: Highlighted 29.79 kg/m2 07-13-2018 - 07-13-2018 [facility] rowBMI (Body Mass Index) [facility] Orthopaedic [facility]urg [facility] ([id number]) NEGATED: Highlighted 96.62 kg 04-04-2019 - 04-04-2019 [facility] rowBody weight [facility] (45003) NEGATED: Highlighted 97 kg 04-04-2019 - 04-04-2019 [facility] rowBody weight [facility] ([id number]) NEGATED: Highlighted 97 kg 03-14-2019 - 03-14-2019 [facility] rowBody weight [facility] ([id number]) NEGATED: Highlighted 96.62 kg 03-14-2019 - 03-14-2019 [facility] rowBody weight [facility] (76179) NEGATED: Highlighted 96.62 kg 02-28-2019 - 02-28-2019 [facility] rowBody weight [facility] (63351) NEGATED: Highlighted 86 mm[Hg] 04-04-2019 - 04-04-2019 [facility] rowBP Diastolic [facility] ([id number]) NEGATED: Highlighted 88 mm[Hg] 03-14-2019 - 03-14-2019 [facility] rowBP Diastolic [facility] ([id number]) NEGATED: Highlighted 79 mm[Hg] 02-28-2019 - 02-28-2019 [facility] rowBP Diastolic [facility] ([id number]) NEGATED: Highlighted 88 mm[Hg] 01-25-2019 - 01-25-2019 [facility] rowBP Diastolic [facility] ([id number]) NEGATED: Highlighted 89 mm[Hg] 07-13-2018 - 07-13-2018 [facility] rowBP Diastolic [facility] ([id number]) NEGATED: Highlighted 146 mm[Hg] 04-04-2019 - 04-04-2019 [facility] rowBP Systolic [facility] ([id number]) NEGATED: Highlighted 150 mm[Hg] 03-14-2019 - 03-14-2019 [facility] rowBP Systolic [facility] ([id number]) NEGATED: Highlighted 132 mm[Hg] 02-28-2019 - 02-28-2019 [facility] rowBP Systolic [facility] ([id number]) NEGATED: Highlighted 137 mm[Hg] 01-25-2019 - 01-25-2019 [facility] rowBP Systolic [facility] ([id number]) NEGATED: Highlighted 144 mm[Hg] 07-13-2018 - 07-13-2018 [facility] rowBP Systolic [facility] ([id number]) NEGATED: Highlighted + 04-04-2019 - 04-04-2019 [facility] rowHeart rate [facility] ([id number]) NEGATED: Highlighted + 03-14-2019 - 03-14-2019 [facility] rowHeart rate [facility] ([id number]) NEGATED: Highlighted + 02-28-2019 - 02-28-2019 [facility] rowHeart rate [facility] ([id number]) NEGATED: Highlighted 185 cm 04-04-2019 - 04-04-2019 [facility] rowHeight [facility] ([id number]) NEGATED: Highlighted 185.42 cm 04-04-2019 - 04-04-2019 [facility] rowHeight [facility] ([id number]) NEGATED: Highlighted 185 cm 03-14-2019 - 03-14-2019 [facility] rowHeight [facility] ([id number]) NEGATED: Highlighted 185.42 cm 03-14-2019 - 03-14-2019 [facility] rowHeight [facility] ([id number]) NEGATED: Highlighted 185 cm 02-28-2019 - 02-28-2019 [facility] rowHeight [facility] Cent - [facility] ([id number]) NEGATED: Highlighted 68 /min 04-04-2019 - 04-04-2019 [facility] rowPulse (Heart Rate) Orthopaedi c [facility] ([id number]) NEGATED: Highlighted 70 /min 03-14-2019 - 03-14-2019 [facility] rowPulse (Heart Rate) Orthopaedi c [facility] ([id number]) Encounters Date Type Reason Provider Location 04-28-2018 Emergency Sciatica, right side [facility] department patient UNKNOWN PROVIDER Breanne adrian ([id number]) visit PCP No 03-11-2020 - Patient encounter External Provider [facility] 03-11-2020 procedure 01-17-2020 - Patient encounter External Provider [facility] 01-17-2020 procedure 04-04-2019 - Patient encounter Aníbal Alcocer MD [facility] 04-04-2019 procedure Orthopaedic [facility] Orthopaedic Surgeons [facility] ([id number]) 03-14-2019 - Patient encounter Aníbal Alcocer MD [facility] 03-14-2019 procedure Orthopaedic [facility] Orthopaedic Surgeons [facility] ([id number]) 02-28-2019 - Patient encounter Aníbal Alcocer MD [facility] 02-28-2019 procedure Orthopaedic [facility] Orthopaedic Surgeons [facility] ([id number]) 01-25-2019 - Patient encounter Yann Englisha l [facility] 02-13-2019 procedure Orthopaedic [facility] Orthopaedic Surgeons [facility] ([id number]) 09-15-2018 - Patient encounter Radiculopathy, NIMESH E VUCETIC Facil ity:[facility] 09-15-2018 procedure lumbar region NIMESH E VUCETIC GENERAL MED [facility] 07-13-2018 - Patient encounter [facility] 07-[facility] Orthopaedic Surgeons [facility] ([id number]) 05-08-2018 - Patient encounter Noemí [facility] 05-08-2018 procedure [place] [facility] Orthopaedic Surgeons [facility] ([id number]) 07-13-2018 - Pt evaluation Ranjana [facility] 07-13-2018 [facility] [address] [employer] PROFESS[employer] - [facility] ([id number]) 05-08-2018 - Pt evaluation Noemí Adrian [facility] 05-08-[address] [place] [address] [facility] - [facility] ([id number]) 03-05-2020 - Refill [facility] 03-05-2020 hypertension Emmett Galvan Comment: Refill Request 03-11-2020 Results Only External Provider External-N on[facility] 01-17-2020 Results Only External Provider External-N onCCF Procedures Procedure Name Date Provider Location EXTERNAL IMAGING 03-11-2020 External Provider [facility] ([id number]) EXTERNAL IMAGING 01-17-2020 External Provider [facility] ([id number]) NEGATED: Highlighted 04-04-2019 - [facility] rowDocumentation of current 04-04-2019 Orth opaedic Center - medications [facility] ([id number]) BMI documented as above 04-04-2019 - Aníbal Alcocer [facility] normal parameters - 04-04-2019 [facility]opa[facility] Center - follow-up documented [facility] ([id number]) Doc fx & test/txmnt for op 04-04-2019 - [facility]bal [facility]coc[facility] 04-04-2019 [facility] ([id number]) Documentation of current 04-04-2019 - Aníbal Alcocer MD [facility] medications 04-04-2019 [facility] ([id number]) Pain assessment documented 04-04-2019 - Aníbal Alcocer [facility] as negative - follow-up not 04-04-2019 Orth opaedic Center - required [facility] ([id number]) Tobacco non-user 04-04-2019 - Aníbal Alcocer [facility] 04-04-2019 [facility] ([id number]) NEGATED: Highlighted 03-14-2019 - [facility] rowDocumentation of current 03-14-2019 Orth opaedic Center - medications [facility] ([id number]) BMI documented as above 03-14-2019 - Aníbal Alcocer MD [facility] normal parameters - 03-14-2019 [facility] Center - follow-up documented [facility] ([id number]) Doc fx & test/txmnt for op 03-14-2019 - Aníbal [facility]coc[facility] 03-14-2019 [facility] - [facility] ([id number]) Documentation of current 03-14-2019 - Aníbal Alcocer MD [facility] medications 03-14-2019 [facility] ([id number]) Pain assessment documented 03-14-2019 - Aníbal [facility]cocer [facility] as negative - follow-up not 03-14-2019 Orth opaedic Center - required [facility] ([id number]) Tobacco non-user 03-14-2019 - Aníbal Alcoecr MD [facility] 03-14-2019 [facility] - [facility] ([id number]) NEGATED: Highlighted 02-28-2019 - [facility] rowDocumentation of current 02-28-2019 Orth opaedic Center - medications [facility] ([id number]) AIRSELECT SHORT (AIRCAST) 02-28-2019 - [facility]bal [facility] 02-28-2019 [facility] - [facility] ([id number]) Blood pressure within normal 02-28-2019 - Aníbal Alcocer MD [facility] parameters - no follow-up 02-28-2019 Orthop aedic Center - required [facility] ([id number]) BMI documented as above 02-28-2019 - Aníbal Alcocer MD [facility] normal parameters - 02-28-2019 [facility]opa[facility] Center - follow-up documented [facility] ([id number]) BUNION SPLINT / TOE NIGHT 02-28-2019 - Aníbal [facility]coc[facility] SPLINT (PROCARE) 02-28-[address] - [facility] ([id number]) Doc fx & test/txmnt for op 02-28-2019 - Aníbal [facility]coc[facility] 02-28-2019 [facility] - [facility] ([id number]) Documentation of current 02-28-2019 - [facility] medications 02-28-2019 [facility] - [facility] ([id number]) Pain assessment documented 02-28-2019 - Aníbal Alcocer [facility] as positive - follow-up 02-28-2019 Orthopae dic Center - documented [facility] ([id number]) Tobacco non-user 02-28-2019 - Aníbal Alcocer MD [facility] 02-28-2019 [facility] - [facility] ([id number]) Blood pressure within normal 01-25-2019 - Scot Ncik Boland DO [facility] parameters - no follow-up 02-13-2019 Orthop aedic Center - required [facility] ([id number]) BMI documented as above 01-25-2019 - Scot D Boland DO [facility] normal parameters - 02-13-2019 [facility] Center - follow-up documented [facility] ([id number]) Documentation of current 01-25-2019 - Scot Nick Richi VALENCIA [facility] medications 02-13-2019 [facility] - [facility] ([id number]) Pain assessment documented 01-25-2019 - Scot Nick Boland DO [facility] as positive - follow-up 02-13-2019 Orthopae [facility] Center - documented [facility] ([id number]) Tobacco non-user 01-25-2019 - Scot D Boland DO [facility] 02-13-2019 [facility] - [facility] ([id number]) Blood pressure outside of 07-13-2018 - Ranjana Giordanoitnick [facility] normal parameters - 07-13-2018 [facility] Orthopaedic Center - follow-up documented [facility] (97026) BMI documented as above 07-13-2018 - Ranjana Opsitnick [facility] normal parameters - 07-13-2018 [facility] Orthopaedic Center - follow-up documented [facility] ([id number]) Documentation of current 07-13-2018 - Ranjana Opsitnick [facility] medications 07-13-2018 [facility] Orthopaedic Cent er - [facility] ([id number]) Pain assessment documented 07-13-2018 - Ranjana Urban [facility] as positive - follow-up 07-13-2018 [facility] Orthopae dic Center - documented [facility] ([id number]) Tobacco non-user 07-13-2018 - Ranjana Opsitnick [facility] 07-13-2018 [facility] Orthopaedic Cent er - [facility] ([id number]) Blood pressure outside of 05-08-2018 - Noemí Sanchez [facility] normal parameters - 05-08-2018 [facility] Orthopaedic Center - follow-up documented [facility] ([id number]) BMI documented as above 05-08-2018 - Noemí Sanchez [facility] normal parameters - 05-08-2018 [facility] Orthopaedic Center - follow-up documented [facility] ([id number]) Documentation of current 05-08-2018 - Noemí Sanchez [facility] medications 05-08-2018 [facility] Orthopaedic Cent er - [facility]edic [facility] ([id number]) Pain assessment documented 05-08-2018 - Noemí Sanchez [facility] as positive - follow-up 05-08-2018 [facility] Orthopae dic Center - documented [facility] ([id number]) Radex spine lumbosacral 05-08-2018 - Noemí Sanchez [facility] minimum 4 views 05-08-2018 [facility] Orthopaedic [facility] - Orthopaedic Surg eons [facility] ([id number]) Tobacco non-user 05-08-2018 - Noemí Sanchez [facility] 05-08-2018 [facility] Orthopaedic [facility] - Orthopaedic Surg eons [facility] ([id number]) Colonoscopy 12-23-2017 - [facility] 12-23-2017 ([id number]) Plan of Treatment Plan Description Date Location COLONOSCOPY COLONOSCOPY 12-24-2027 - [facility] 12-24-2027 ([id number]) COLORECTAL CANCER COLORECTAL CANCER 12-24-[address] [facility] inic SCREENING,SEE MODIFIER SCREENING,SEE MODIFIER ([id number]) LIPID SCREEN LIPID SCREEN 05-31-2023 - [facility] 05-31-2023 ([id number]) DIABETES SCREEN DIABETES SCREEN 05-31-2021 - [facility] 05-31-2021 ([id number]) ANNUAL PCP TEAM CHRONIC ANNUAL PCP TEAM CHRONIC 10-22-2020 - [facility] DISEASE VISIT DISEASE VISIT 10-22-2020 ([id number]) BP CONTROLLED (<130/80) BP CONTROLLED (<130/80) 07-12-2020 - [facility] 07-12-2020 ([id number]) INFLUENZA (#1) INFLUENZA (#1) 2020 - [facility] 02-05-2020 ([id number]) Appointment Appointment 04-04-2019 - [facility] 04-04-2019 [facility] - [facility] ([id number]) XR FOOT 3+ VWS-LT XR FOOT 3+ VWS-LT 04-04-2019 - [facility] 04-04-2019 [facility] - [facility] ([id number]) Appointment Appointment 03-14-2019 - [facility] 03-14-2019 [facility] - [facility] ([id number]) XR FOOT 3+ VWS-LT XR FOOT 3+ VWS-LT 03-14-2019 - [facility] 03-14-2019 [facility] ([id number]) Appointment Appointment 02-28-2019 - [facility] 02-28-2019 [facility] - [facility] ([id number]) XR FOOT 3+ VWS-LT XR FOOT 3+ VWS-LT 02-28-2019 - [facility] 02-28-2019 [facility] ([id number]) EMG/NCT bilateral lower EMG/NCT bilateral lower 01-25-2019 - [facility] extremity extremity 01-25-2019 [facility] ([id number]) Appointment Appointment 08-15-2018 - [facility] 08-15-2018 [facility]opa[facility] - [facility] ([id number]) Appointment Appointment 07-13-2018 - [facility] 07-13-2018 [facility] - [facility] ([id number]) Appointment Appointment 06-05-2018 - [facility] 06-05-2018 [facility]opa[facility] - [facility] ([id number]) Appointment Appointment 05-08-2018 - [facility] 05-08-2018 [facility] - [facility] ([id number]) SHINGRIX VACCINE (1 of SHINGRIX VACCINE (1 of 2015 - [facility] 2) 2) 2015 ([id number]) DTAP,TDAP,TD (1 - Tdap) DTAP,TDAP,TD (1 - Tdap) 1984 - [facility] 1984 ([id number]) HEPATITIS C SCREENING HEPATITIS C SCREENING 1983 - [facility] 1983 ([id number]) HIV SCREENING HIV SCREENING 1983 - [facility] 1983 (57731) CBC CBC Lab Routine 03-05-2021 [facility] Essential hypertension 1 (50717) Occurrences starting 03/05/2020 until 03/05/2021 Comment: 1 Occurrences starting 03/05 until 03/05/2021 CMP (CMP) (FOR REMOTE CMP (CMP) (FOR REMOTE [facility] 03-05-2021 [facility] ([id number]) [facility] USE) USE) Lab Routine Essential hypertension 1 Occurrences starting 03/05/2020 until 03/05/2021 Comment: 1 Occurrences starting 03/05 until 03/05/2021 LIPID PANEL BASIC LIPID PANEL BASIC Lab Routine 03-05-2021 [facility] ([id number]) Hyperlipidemia, unspecified hyperlipidemia type 1 Occurrences starting 03/05/2020 until 03/05/2021 Comment: 1 Occurrences starting 03/05 until 03/05/2021 Patient education no information [facility] Center - [facility] ([id number]) Immunizations Vaccine Notes Status Date Location No information No information (completed) [facility] available. available. [facility] - Orthopaedic [facility] ([id number]) Payers Payer Name Policy Number Location [facility] ([id number]) MMO [id number] [facility] (44 195) MMO [employer] [id number] [facility] ([id number]) [id number] [facility] ([id number]) [id number] [facility] ([id number]) The following information is from the original human readable contentNo Payer Records FoundNo Payer Records FoundNo Payer Records Found Social History Type Social History Date Location Description Assertion Unknown if ever smoked 05-08-2018 - [facility] ([id number]) History SDOH Alcohol 1 10-23-2019 - [facility] Frequency 10-23-2019 ([id number]) NEGATED: Highlighted Employment detail 01-25-2019 - Yajaira ferrara rowEmployment detail 01-25-2019 [facility] ([id number]) Tobacco smoking status Never smoker 10-23-2019 - [facility] NHIS 10-23-2019 ([id number]) Tobacco use and exposure Former user 10-23-2019 - [facility] 10-23-2019 ([id number]) History of tobacco use Chews Tobacco 09-15-2014 [facility] ([id number]) Alcohol intake Current non-drinker of 10-23-2019 [facility] alcohol (finding) 10-23-2019 ([id number]) Employment detail Employment detail 02-28-2019 - [facility] ([id number]) History SDOH Alcohol Std 98 10-23-2019 - [facility] Drinks 10-23-2019 ([id number]) History SDOH Social 5 10-23-2019 - [facility] Phone 10-23-2019 ([id number]) History SDOH Social 2 10-23-2019 - [facility] [employer] Get Together 10-23-2019 ([id number]) History SDOH Social 3 10-23-2019 - [facility] [employer] 10-23-2019 ([id number]) History SDOH Physical 13 10-23-2019 - [facility] Activity MPS 10-23-2019 ([id number]) History SDOH Education 12 10-23-2019 - [facility] 10-23-2019 ([id number]) Sex Assigned At Not on file [facility] ([id number]) The following information is from the original human readable contentNo Social History Records FoundNo Social History Records FoundNo Social History Records FoundNo Social History Records FoundNo Social History Records FoundNo Social History Records FoundNo Social History Records Found Chief Complaint Chief Complaint Description Start Date left foot pain Preliminary chief complaint data, not yet signed by the author as of Chief Complaint Description Start Date lower back pain Preliminary chief complaint data, not yet signed by the author as of Chief Complaint Description Start Date lower back post Revision Right L5-S1 Microdiscectomy on 06/28/2018 Preliminary chief complaint data, not yet signed by the author as of Chief Complaint Description Start Date left foot pain Preliminary chief complaint data, not yet signed by the author as of Chief Complaint Description Start Date left foot pain Preliminary chief complaint data, not yet signed by the author as of Chief Complaint Description Start Date lower back pain Preliminary chief complaint data, not yet signed by the author as of Instructions Instruction Description Start Date CompletedPatient advised to follow-up with Primary Car e Physician for BMI management. Instruction Description Start Date CompletedPlease follow-up with Primary Care Physician or Manager Balance for treatment or adjustment of medication regarding elevat ed blood pressure.Patient advised to follow-up with Primary Car e Physician for BMI management. Instruction Description Start Date CompletedPlease follow-up with Primary Care Physician or Manager Balance for treatment or adjustment of medication regarding elevat ed blood pressure.Patient advised to follow-up with Primary Car e Physician for BMI management. Instruction Description Start Date CompletedPlease follow-up with Primary Care Physician or Manager Balance for treatment or adjustment of medication regarding elevat ed blood pressure.Patient advised to follow-up with Primary Car e Physician for BMI management. Instruction Description Start Date CompletedPlease follow-up with Primary Care Physician or Manager Balance for treatment or adjustment of medication regarding elevat ed blood pressure.Patient advised to follow-up with Primary Car e Physician for BMI management. Instruction Description Start Date CompletedPatient advised to follow-up with Primary Car e Physician for BMI management. Advance Directives Documents on File Type Date Recorded Patient Location Director Explanati on Advance Directive(s) 12/23/2017 7:47 AM Assessments Diagnosis Hyperlipidemia, unspecified hyperlipidem ia type - Primary Essential hypertension Unspecified essential hypertension Review of System There may be information available, but it has not been provided by the sender.There may be information available, but it has not been provided by the sender.There may be information available, but it has not been provided by the sender.There may be information available, but it has not been provided by the sender.There may be information available, but it has not been provided by the sender.There may be information available, but it has not been provided by the sender. Family History There may be information available, but it has not been provided by the sender.There may be information available, but it has not been provided by the sender.There may be information available, but it has not been provided by the sender.No Family History Records FoundThere may be information available, but it has not been provided by the sender.There may be information available, but it has not been provided by the sender.No Family History Records FoundThere may be information available, but it has not been provided by the sender.No Family History Records FoundNo Family History Records Found History of Present Illness There may be information available, but it has not been provided by the sender.There may be information available, but it has not been provided by the sender.There may be information available, but it has not been provided by the sender.There may be information available, but it has not been provided by the sender.There may be information available, but it has not been provided by the sender.There may be information available, but it has not been provided by the sender. Summary Purpose History of Past Illness Problem Noted Date Resolved Date Kidney insufficiency 05/14/2018 06/20/2018 Blood glucose abnormal 11/26/2013 06/02/2018 Diarrhea 10/27/2007 04/17/2015 OBESITY 10/18/2005 04/17/2015 Problem Noted Date Resolved Date Kidney insufficiency 05/14/2018 06/20/2018 Blood glucose abnormal 11/26/2013 06/02/2018 Diarrhea 10/27/2007 04/17/2015 OBESITY 10/18/2005 04/17/2015 Additional Source Comments FOR RECORDS PERTAINING TO PATIENTS WHO ARE OR HAVE BEEN ENROLLED IN A CHEMICAL DEPENDENCY/SUBSTANCE ABUSE PROGRAM, SOME INFORMATION MAY BE OMITTED. This clinical summary was aggregated from multiple sources. Caution should be exercised in using it in the provision of clinical care. This summary normalizes information from multiple sources, and as a consequence, information in this document may materially changethe coding, format and clinical context of patient data. In addition, data may be omittedin some cases. CLINICAL DECISIONS SHOULD BE BASED ON THE PRIMARY CLINICAL RECORDS. [employer] [facility] provides no warranty or guarantee of the accuracy or completeness of information in this document. UNRECOGNIZED CONTENT PROVIDED BELOW FOR UNRECOGNIZED SECTION Reason for Visit Reason For Visit Description Start Date Workers Comp - Consult Preliminary reason for visit data, not yet signed by the author as of left foot pain Reason For Visit Description Start Date New - 1st visit with practice Preliminary reason for visit data, not yet signed by the author as of lower back pain Reason For Visit Description Start Date Postop - 1st visit Preliminary reason for visit data, not yet signed by the author as of lower back post Revision Right L5-S1 Microdiscectomy on 06/28/2018 Reason For Visit Description Start Date Workers Comp - follow-up by complaint Preliminary reason for visit data, not yet signed by the author as of left foot pain Reason For Visit Description Start Date Workers Comp - follow-up by complaint Preliminary reason for visit data, not yet signed by the author as of 2 left foot pain Reason For Visit Description Start Date Test Result Preliminary reason for visit data, not yet signed by the author as of lower back pain Reason Onset Date Comments Refill Request 03/05/2020 UNRECOGNIZED CONTENT PROVIDED BELOW FOR UNRECOGNIZED SECTION No Status Records FoundNo Status Records FoundNo Status Records FoundNo Status Records Found UNRECOGNIZED CONTENT PROVIDED BELOW FOR UNRECOGNIZED SECTION INFORMATION SOURCE DATE CREATED AUTHOR AUTHOR'S ORGANIZATIO N 09/28/2018 [facility] DATE CREATED AUTHOR AUTHOR'S ORGANIZATIO N 05/15/2018 [facility] DATE CREATED AUTHOR AUTHOR'S ORGANIZATIO N 03/05/2020 [facility] DATE CREATED AUTHOR AUTHOR'S ORGANIZATIO N 03/10/2020 [facility] UNRECOGNIZED CONTENT PROVIDED BELOW FOR UNRECOGNIZED SECTION Source Comments In the event this information is protected by the Federal Confidentiality of Alcohol and Drug Abuse Patient Records regulations: The Federal rules restrict any use of the information to criminally investigate or prosecute any alcohol or drug abuse patient.[facility] the event this information is protected by the Federal Confidentiality of Alcohol and Drug Abuse Patient Records regulations: The Federal rules restrict any use of the information to criminally investigate or prosecute any alcohol or drug abuse patient.[facility] the event this information is protected by the Federal Confidentiality of Alcohol and Drug Abuse Patient Records regulations: The Federal rules restrict any use of the information to criminally investigate or prosecute any alcohol or drug abuse patient.[facility] UNRECOGNIZED CONTENT PROVIDED BELOW FOR UNRECOGNIZED SECTION Miscellaneous Notes Telephone Encounter - Devon Michaels Cma - 03/05/2020 10:56 AM EDTSent secure [employer] message to patient with below information. Asked patient to call office to schedule appointments. Devon Michaels Cma elephone Encounter - Jonathan Christine - 03/05/2020 10:28 AM EDT Fasting lab ordered. In office visit needed. elephone Encounter - Sofia Arriola LPN - 03/05/2020 10:04 AM EDT Patient has been identified by name and date of : Yes Patient phones for refill(s): Pending Prescriptions Disp Refills LISINOPRIL 40 MG TABLET 90 tablet 0 Sig: Take 1 tablet by mouth once daily. ARIA: No AMLODIPINE 10 MG TABLET 90 tablet 0 Sig: Take 1 tablet by mouth once daily. ARIA: No Date of last office visit in primary care: 10/23/2019 No future appt scheduled. Last 2 Encounter Wt Readings: Date: Wt: 07/24/2019 101.9 kg (224 lb 9.6 oz) 07/12/2019 99.8 kg (220 lb) Previous labs/tests for medication: Blood Pressure: BUN (mg/dL) Date Value 05/31/2018 19 Sodium (mmol/L) Date Value 05/31/2018 142 Last 1 Encounter BP Readings: Date: BP: 07/24/2019 118/80 Please advise. Thank you. Sofia Arriola LPN Telephone Encounter - Keturah Schroeder - 03/05/2020 9:57 AM EDT Patient has been identified by name and date of : Yes Pending Prescriptions Disp Refills LISINOPRIL 40 MG TABLET 90 tablet 3 Sig: Take 1 tablet by mouth once daily. ARIA: No AMLODIPINE 10 MG TABLET 90 tablet 3 Sig: Take 1 tablet by mouth once daily. ARIA: No RX INSTRUCTIONS: Patient aware RX will be sent to pharmacy. No need to notify patient. Keturah Nguyen documented in this encounter
== END ==
PROVIDERS: PCP Internal Medicine; Referring Provider Family Medicine; Visit Provider Family Medicine
DX: B34.9 Viral infection, unspecified (principal)
CPT/HCPCS: 87635; G2023; U0004

== ENCOUNTER → 2019-11-30 | Outpatient (CLI) | payer OTHER, SELFPAY ==
[2019-11-29 15:18] VITALS: BMI 28.0
[2019-11-30 12:37] LABS: Mucous, Urine 0 SEEN /hpf (<or=2+); Red Blood Cells-Urine 0 SEEN /hpf (0-5); Squamous Epithelial Cells - UA 0 SEEN /hpf (0-5)
[2019-11-30 12:43] LABS: Color, Urine Yellow (Yellow); Glucose, Dipstick Normal (Normal); Ketone-Dipstick Negative (Negative); Leukocyte Esterase-Dipstick 100 /ul (Negative); Nitrite-Dipstick Negative (Negative); Occult Blood-Urine Negative /ul (Negative); Protein-Dipstick 30 mg/dl (Negative); Specific Gravity, Urine 1.015 (1.002-1.030); Urine Bilirubin Dipstick Negative (Negative); Urine Clarity Clear (Clear); Urine Urobilinogen 1 mg/dl (Normal)
[2019-11-30 12:56] LABS: Bacteria 1+ /hpf (None Seen); White Blood Cells 5-10 SEEN /hpf (0-5)
== END | disposition home or self-care (01) ==
LOC: LABSPEC 10:14
PROVIDERS: PCP Internal Medicine; Referring Provider Physician Assistant; Visit Provider Physician Assistant
DX: N30.01 Acute cystitis with hematuria (principal)
CPT/HCPCS: 81001; 87077; 87086; 87088; 87186

== ENCOUNTER 2019-12-01 00:11 | Emergency (ER) | payer OTHER, SELFPAY ==
[2019-11-29 15:18] VITALS: BMI 28.0
[2019-12-01 00:12] VITALS: BP 141/86; PULSE 85; RESP 18; TEMP 37.8; O2SAT 95; BMI 28.3
--- NOTE | 2019-12-01 00:27 | CT_ITS ---
STUDY: CT ABDOMEN AND PELVIS WITHOUT CONTRAST REASON FOR EXAM: Male, 54 years old. LT FLANK PAIN AND NAUSEA SINCE TUESDAY -- Hx: kidney STONES AND BACK SURGERY RADIATION DOSAGE (If Supplied By Facility): CTDIvol = ( 12.54 ) mGy, DLP = ( 720.64 ) mGycm TECHNIQUE: Transaxial images were obtained from the dome of the diaphragm to the symphysis pubis without oral contrast, and without intravenous contrast. Sagittal and coronal images were reconstructed. Individualized dose optimization techniques were used for this CT. COMPARISON: 11/20/2003 CT scan abdomen and pelvis FINDINGS: There is minimal lower lobe atelectasis. The visualized portions of the heart are within normal limits. The liver is mildly enlarged. Normal gallbladder and extrahepatic biliary system. There is desq-gx-bhvjtoqz splenomegaly. Normal pancreas. Normal bilateral adrenal glands. There are multiple stones in the right kidney. The largest of which measures 7.3 mm. There is left hydronephrosis. There is a upper pole left renal cyst measuring 1.4 cm with benign features, not definitively seen on the prior study. There is left renal edema. Within the proximal left ureter just at the ureteropelvic junction there is a stone measuring 9 x 8.4 mm. There are punctate stones in the left kidney. There is stranding along the left ureter. There is hypertrophy of the bilateral perinephric fat. There is a small hiatal hernia. Normal small intestine. There is mild to moderate stool in the colon. There is diverticulosis without visualized diverticulitis. The appendix is visualized and appears normal. There is minimal calcification of the aorta. Normal inferior vena cava. Normal retroperitoneum. Normal urinary bladder. There are prostatic calcifications. Normal abdominal wall. There are diffuse degenerative changes of the visualized lumbar spine. Most significant at the level of L4-L5 and L5-S1. There is disc space narrowing and broad disc osteophyte mild to moderate neural foramina narrowing mild central stenosis. There is a stable focus of low attenuation bony demineralization within the posterior aspect of the right acetabulum. CT/Abdomen/Pelvis without Cont IMPRESSION: Left renal edema. Moderate left hydronephrosis. 9 x 8.4 mm stone at the ureteropelvic junction. Multiple stones left kidney. Visualized cyst in the upper pole of the left kidney with relatively benign features not definitively seen on the prior noncontrast study. Could consider follow-up ultrasound when clinically appropriate. Stranding along the left psoas muscle due to inflammation in the left ureter. Multiple stones in the right kidney the largest of which measures 7 mm. Constipation Mild hepatomegaly. Mild to moderate splenomegaly. Degenerative change within the thoracolumbar spine. Electronically Signed: Daniela Brito MD at 1:45 EDT Tel , Service support ,
[2019-12-01] MEDS: Ketorolac 30 MG/ML Syringe IV (00:48)
[2019-12-01] MEDS: 0.9% Normal Saline 1,000 ML 250 ML IV (00:48)
[2019-12-01 01:03] LABS: Mucous, Urine 0 SEEN /hpf (<or=2+); Red Blood Cells-Urine 0 SEEN /hpf (0-5)
[2019-12-01 01:26] LABS: Color, Urine Yellow (Yellow); Glucose, Dipstick Normal (Normal); Ketone-Dipstick Negative (Negative); Leukocyte Esterase-Dipstick 25 /ul (Negative); Nitrite-Dipstick Negative (Negative); Occult Blood-Urine 150 /ul (Negative); Protein-Dipstick 30 mg/dl (Negative); Urine Bilirubin Dipstick Negative (Negative); Urine Clarity Clear (Clear); Urine Urobilinogen 8 mg/dl (Normal)
[2019-12-01 01:34] LABS: Bacteria 1+ /hpf (None Seen); Squamous Epithelial Cells - UA 0-5 SEEN /hpf (0-5); White Blood Cells 0-5 SEEN /hpf (0-5)
--- NOTE | 2019-12-01 01:59 | ED.DCSUM_ITS ---
- ER Visit Summary Date of Service: 12/01/19 Chief Complaint: Left leg pain History of Present Illness: The patient is a 54 M who has left flank pain. He said this for 2 days. It sharp in the left flank and radiates mildly to the anterior portion of his abdomen. Nothing makes it better or worse. His last kidney stone was 8 years ago and this feels very similar. He has been drinking more water at home to help with this. He denies any dysuria or fever today but has had a fever yesterday. He does admit to some hematuria. Physical Examination: Vital signs reviewed. HEENT exam unremarkable. Heart is regular rate and rhythm without murmurs. Lungs are clear to auscultation. Abdomen is soft and nontender. Back exam reveals some mild left tenderness in the flank. Extremities reveal no edema. Skin exam normal. Neurologic exam normal. Test Results: Urinalysis reveals trace leukocytes with 0-5 white cells. 0 red blood cells but there is microscopic blood. CAT scan reveals left renal edema with moderate hydronephrosis. There is a 9 x 8.4 mm stone in the proximal ureter Emergency Department Course and Treatment: Patient was treated with Toradol and normal saline. He had a headache so he was given Tylenol. Upon reevaluation the patient's symptoms are much improved. He feels better. His temperature was 100.1 ?F. He is already on antibiotics as he told me that he went to an urgent care yesterday. They placed him on antibiotics to get on top of any infection if there is any. As he is now comfortable and not in much pain, I feel he can be treated as an outpatient. He will continue the antibiotics given to him at the urgent care. I will give him [place] for pain control. I recommended that he call urology for follow-up on Tuesday. He will return to the ER over the weekend if his symptoms are not controlled at home, including pain or fever. Treatment Plan: [] Disposition: Discharge Impression: Left ureterolithiasis This note was generated with [employer] dictation software. It may contain incorrect words, spelling, and punctuation that were not noted in review of the chart prior to signing ED Disposition - Plan for ED Patient: Disposition: Home or Assisted Living Instructions: ED Renal Stone w Colic Prescriptions: Hydrocodone Bitart/Apap 5-325 [[place] 5MG-325MG] 1 tablet PO Q6H PRN PRN 3 Days #10 tablet PRN Reason: Pain Transmission Status: Sent to [facility] Referrals: Jonathan Christine MD [Primary Care Provider] -
--- NOTE | 2019-12-01 02:04 | ED.DEP ---
ED Disposition - Plan for ED Patient: Disposition: Home or Assisted Living Instructions: ED Renal Stone w Colic Prescriptions: Hydrocodone Bitart/Apap 5-325 [[place] 5MG-325MG] 1 tab PO Q6H PRN PRN 3 Days #10 tab PRN Reason: Pain Transmission Status: Sent to [facility] Referrals: Jonathan Christine MD [Primary Care Provider] - Tony Jackman MD [STAFF PHYSICIAN] -
[2019-12-01] MEDS: Acetaminophen 500 MG Tablet 1000 MG PO (02:07)
[2019-12-01 02:26] VITALS: BP 117/71; PULSE 64; RESP 16; O2SAT 94
== END 2019-12-01 02:27 | disposition home or self-care (01) ==
PROVIDERS: Emergency Provider Emergency Medicine; PCP Internal Medicine
DX: N13.2 Hydronephrosis with renal and ureteral calculous obstruction (principal); I10 Essential (primary) hypertension; Z87.442 Personal history of urinary calculi
CPT/HCPCS: 74176; 81001; 96361; 96374; 99284; J7030

== ENCOUNTER 2019-12-05 08:11 | Day surgery (SDC) | payer OTHER, SELFPAY ==
[2019-12-04 19:25] LABS: Probe Check PASS; Specimen Processing Control PASS
--- NOTE | 2019-12-05 08:15 | RAD_ITS ---
STUDY: X-RAY - ABDOMEN/PELVIS REASON FOR EXAM: Male, 54 years old. LT SIDE K.S. PRE- ESWL TECHNIQUE: Single AP view of the abdomen / pelvis. COMPARISON: Comparison is made with prior CT scan of the abdomen dated December 01, 2019. FINDINGS: There is an unremarkable bowel gas pattern. There is a 6.3 mm triangular shaped calcification overlying the transverse process of the L2 vertebra on the left side suggestive of a left proximal ureteral calculus. Normal soft tissue structures. Normal visualized osseous structures. RAD/Abdomen Single View IMPRESSION: 6.3 mm calculus at the left ureteral pelvic junction overlying the transverse process of the L2 vertebrae on the left side. Electronically Signed: Lance Hein, at 12:29 EDT , Service support ,
[2019-12-05] MEDS: Lactated Ringers 1,000 ML 100 ML IV ×2 (08:40→11:15)
[2019-12-05 09:32] VITALS: BP 154/97; PULSE 57; RESP 16; TEMP 36.6; O2SAT 98; BMI 27.8
--- NOTE | 2019-12-05 09:54 | PCM.HP.STD ---
Problem List (1) Bilateral renal stones Status: Acute History of Present Illness Date of Admission: 12/05/19 Chief Complaint: Left obstructing ureteral calculi, right nonobstructing lower pole stone The patient is a 54 year old male who presented to the emergency room with severe left flank pain had a CAT scan done that demonstrated a stone in the proximal ureter with obstruction. We plan to proceed with cystoscopy stent placement and left shockwave lithotripsy. He also has another stone in the right kidney at the lower pole nonobstructing stone not given any pain or problems but it is an 8 mm stone and he desires to have that one treated as well so we can proceed with treatment of the right kidney stone as well today. Past Medical History Medical History: Medical History (Last Reviewed 11/29/19 @ 15:18 by Angela Gallardo) Back pain M54.9 Hypertension I10 Allergies No Known Allergies Allergy (Verified 12/04/19 14:38) Home Medications: Ambulatory Orders Medication Instructions Recorded Lisinopril [Zestril] 10 mg PO DAILY 12/24/16 Diazepam [Valium] 5 mg PO Q8 PRN #10 tab 04/21/18 amlodipine 10 mg tablet 10 mg PO DAILY 11/11/18 gabapentin 600 mg tablet 600 mg PO TID 11/11/18 ibuprofen 800 mg tablet 800 mg PO Q6H PRN 11/11/18 ciprofloxacin HCl 500 mg tablet 500 mg PO Q12H #14 tab 11/29/19 Tamsulosin HCl [Flomax] 0.4 mg PO QHS 12/04/19 Surgical History: Surgical History (Last Reviewed 11/29/19 @ 15:18 by Angela Gallardo) History of back surgery Z98.890 Surgical History: no surgical history Lives: Spouse/ Significant Other Smoking Status: Never smoker Tobacco Use: Non-smoker Alcohol: None Drugs: None - *Family History Maternal History Items: No pertinent history Review of Systems Constitutional: Denies: Chills, Fever, Weight Change HEENT: Denies: Head Aches, Sinus Congestion, Sinus Drainage Cardiovascular: Denies: Chest Pain, Palpitations Respiratory: Denies: Cough, Shortness of breath at rest, Sputum production Gastrointestinal: Denies: Abdominal Pain, Nausea, Vomiting Genitourinary: Denies: Dysuria Musculoskeletal: Denies: Joint Pain, Joint Tenderness Skin: Denies: Rash, Wounds Neurological: Denies: Numbness, Tingling, Focal weakness Psychiatric: Denies: Anxiety, Depression, Homicidal Ideations, Suicidal Ideations Hematologic/ Lymphatic: Denies: Easy Bruising, Easy Bleeding VTE Information - Inpt Only VTE Present on Admission: No VTE Mechan Device Prophylaxis: SCD's Patient Problems: Active and Suspected Problems (Last Reviewed 11/29/19 @ 15:18 by Angela Gallardo) Bilateral renal stones (Acute) - Physical Exam Vitals/I&O's: Vital Signs Temp Pulse Resp BP Pulse Ox 98 F 57 L 16 154/97 H 98 12/05/19 09:32 12/05/19 09:32 12/05/19 09:32 12/05/19 09:32 12/05/19 09:32 Oxygen Delivery Method Room Air Weight: 95.8 kg Body Mass Index (BMI) 27.8 General: Alert, Oriented x3, Cooperative HEENT: Atraumatic, PERRLA, EOMI, Normocephalic Neck: Supple, No JVD, Negative Carotid Bruits Lungs: Clear to auscultation, Normal air movement Cardiovascular: Regular rate, No murmurs Abdomen: Bowel Sounds Present, Soft, Non Tender Extremities: No edema, Capillary Refill Less than 3 Seconds Skin: No rashes, No breakdown Musculoskeletal: No Tenderness to Palpation of Joints or Extremities Neurological: Cranial nerves II-XII grossly intact Psych/Mental Status: Normal Affect, Appropriate Laboratory Results 12/04/19 17:30: COVID-19 (NIKKO) Negative 12/04/19 17:30: COVID-19 (NIKKO) Cancelled Assessment/Plan All Active Problems (Last Reviewed 11/29/19 @ 15:18 by Angela Gallardo) Bilateral renal stones (Acute) Hematuria (Acute) Plan to proceed with left cystoscopy and stent placement and left extracorporeal shockwave lithotripsy. And then will also do a right extracorporeal shockwave lithotripsy was no stent. He understands the risk of the procedure including risk of bleeding with the shockwave lithotripsy. Failure for the stone to break all the way. Possibility of needing more than one procedure. Irritation and bothering discomfort with the stent. He knows a stent want to be removed next week we will see him next week with a KUB and remove the stent.
--- NOTE | 2019-12-05 10:01 | PCM.DC.URO ---
Discharge Diet: No Restrictions, Light diet - advance as tolerated Discharge Activity: Return to Normal Activity, May Not Drive - for 2 days., May not drive while taking narcotic pain medications. Additional Activity Instructions:: Please be aware that pain medications may cause nausea. You should typically eat light foods as you take your pain medication. Pain medication may cause constipation, if this is a problem for you, please discuss with your doctor. Call your doctor if you observe: Fever of 101 or Higher Suture Line Care: Avoid Pulling/Pushing, Avoid Pinching/Bending Allergies/Adverse Reactions: Allergies No Known Allergies Allergy (Verified 12/04/19 14:38) Medications to take at Discharge Lisinopril [Zestril] 10 mg PO DAILY 12/24/16 Diazepam [Valium] 5 mg PO Q8 PRN #10 tab 04/21/18 amlodipine 10 mg tablet 10 mg PO DAILY 11/11/18 gabapentin 600 mg tablet 600 mg PO TID 11/11/18 ibuprofen 800 mg tablet 800 mg PO Q6H PRN 11/11/18 ciprofloxacin HCl 500 mg tablet 500 mg PO Q12H #14 tab 11/29/19 Tamsulosin HCl [Flomax] 0.4 mg PO QHS 12/04/19 Cephalexin [Keflex] 500 mg PO TID #10 cap 12/05/19 Hydrocodone/Acetaminophen [[place] 5-325 Tablet] 1 each PO Q4H PRN PRN 5 Days #14 tablet 12/05/19 Phenazopyridine HCl [Pyridium] 100 mg PO TID #21 tab 12/05/19 The following prescriptions were given: Cephalexin [Keflex] 500 mg PO TID #10 cap Transmission Status: Pending to [facility] Hydrocodone/Acetaminophen [[place] 5-325 Tablet] 1 each PO Q4H PRN PRN 5 Days #14 tablet PRN Reason: Pain Score 1-03/15 Transmission Status: Sent to [facility] Phenazopyridine HCl [Pyridium] 100 mg PO TID #21 tab Transmission Status: Pending to [facility] Primary Care Physician: Jonathan Christine MD [Primary Care Provider] - Test Results: Test results from this visit will be discussed in further detail at your follow-up appointment, if applicable. Please Follow Up With: Tony Jackman MD When: in 2 weeks, please call to make an appointment.
[2019-12-05] MEDS: Cefazolin 2 GM in 0.9% Normal Saline 100 ML IV (10:05)
--- NOTE | 2019-12-05 11:36 | PCM.OPRPT ---
Problem List (1) Bilateral renal stones Status: Acute Report of Operation Date of Procedure: 12/05/19 Pre-Operative Diagnosis: Left proximal ureteral calculi and right renal calculi Post-Operative Diagnosis: Same Surgery/Procedure Performed:: Cystoscopy and left stent placement and left shockwave lithotripsy, and then right shockwave lithotripsy Description of Surgical Findings:: 54-year-old male with obstructing stone in the proximal left ureter we agreed to undergo shockwave lithotripsy and stent placement at the same time he also request that we treat the stone in the right kidney which of the lower pole the right kidney. Patient was taken back to the operating room after smooth induction of general anesthesia he was placed supine on the table. The penis and testicles were prepped and draped in usual sterile fashion. Went into the bladder with a 21 [place] rigid cystourethroscope cannulated the left ureter also with a Glidewire advance a wire past the stone up into the kidney and over the wire advanced a stent. Once a stent was in good position then brought the lithotripter table in we identified the stone in the proximal left ureter and proceed with shockwave lithotripsy. A total of 3000 shockwaves were delivered to the stone the left kidney the stone appeared to break up successfully. We then went to the right kidney we localized the stone in the lower pole the right kidney using fluoroscopy triangulation technique and then once a stone was put in the F2 focal point of the lithotripter a total of 3000 shockwaves were delivered to the lower pole stone and the stone also broke up really well. We decided not to leave a stent on the right side. He has a stent on the left side. Plan to see him next week with a KUB and if the stones are broken up well then we will do a cystoscopy and stent removal. Type of Anesthesia:: General Drains: stent left side - Admit VTE Documentation VTE Present on Admission: No VTE Mechan Device Prophylaxis: SCD's
[2019-12-05 11:45] VITALS: BP 129/83; BP 154/97; PULSE 54; RESP 14; TEMP 36.3; O2SAT 96
[2019-12-05 12:01] VITALS: BP 134/96; BP 154/97; PULSE 71; RESP 14; O2SAT 99
[2019-12-05] MEDS: Ketorolac 30 MG/ML Syringe IV (12:05)
[2019-12-05 12:15] VITALS: BP 131/82; BP 154/97; PULSE 61; RESP 16; O2SAT 98
[2019-12-05 12:29] VITALS: BP 133/88; BP 154/97; PULSE 64; RESP 16; TEMP 36.3; O2SAT 99
[2019-12-05] MEDS: Phenazopyridine 95 MG Tablet 190 MG PO (12:42)
[2019-12-05 13:05] VITALS: BP 133/91; BP 154/97; PULSE 61; RESP 16; TEMP 36.4; O2SAT 95
== END 2019-12-05 13:32 | disposition home or self-care (01) ==
LOC: SDC 08:16 → AC 08:17
PROVIDERS: Anesthesiology; PCP Internal Medicine; Referring Provider Urology; Visit Provider Urology
PROC: (CPT 50590; principal; 2019-12-05 10:00)
DX: N20.2 Calculus of kidney with calculus of ureter (principal); I10 Essential (primary) hypertension; Z11.59 Encounter for screening for other viral diseases; Z79.899 Other long term (current) drug therapy
CPT/HCPCS: 52332; 52353; 74018; 87635; G2023; J7120; C1769; C2617; J2405; U0003

== ENCOUNTER 2019-12-09 00:18 | Emergency (ER) | payer OTHER, SELFPAY ==
[2019-12-09 00:19] VITALS: BP 172/99; PULSE 69; RESP 18; TEMP 35.8; O2SAT 97; BMI 28.3
--- NOTE | 2019-12-09 00:56 | CT_ITS ---
STUDY: CT ABDOMEN AND PELVIS WITHOUT CONTRAST REASON FOR EXAM: Male, 54 years old. LT FLANK PAIN POST LITHOTRIPSY ON WED FOR BILAT STONES,STENT LT KIDNEY RADIATION DOSAGE (If Supplied By Facility): CTDIvol = ( 12.23 ) mGy, DLP = ( 724.45 ) mGycm TECHNIQUE: Transaxial images were obtained from the dome of the diaphragm to the symphysis pubis without oral contrast, and without intravenous contrast. Sagittal and coronal images were reconstructed. Individualized dose optimization techniques were used for this CT. COMPARISON: December 01, 2019. FINDINGS: Evaluation is limited by lack of IV and oral contrast material. Atelectasis/scarring within the lungs. Coronary artery calcifications. Normal liver. Normal gallbladder and extrahepatic biliary system. There is borderline splenomegaly. Normal pancreas. Normal bilateral adrenal glands. Multiple nonobstructing nephrolithiasis bilaterally. The largest on the right measuring 7 mm and on the left measuring 6.5 mm. There is been placement of a nephroureteral stent proximally within the superior pole of the left kidney and distally within the urinary bladder. Mild perinephric stranding. There is a 3.5 mm stone seen within the right UPJ without significant hydronephrosis. There remains mild left hydronephrosis which appears slightly decreased from prior study. There remains edematous appearance to the left kidney however this appears decreased. Previously noted stone within the left UPJ is no longer visualized. There is mild stranding adjacent to the ureter on the left. There is a 1.4 cm low-attenuation structure within the left superior pole the kidney similar to prior study. Normal visualized stomach. Normal small intestine. There are multiple colonic diverticula consistent with diverticulosis. The appendix is visualized and appears normal. There is diffuse atherosclerotic calcification of the abdominal aorta, without a demonstrated aneurysm. Cannot evaluate for dissection due to lack of IV contrast. Normal retroperitoneum. Normal urinary bladder. Small fat-containing left inguinal hernia. Tiny fat-containing umbilical hernia. There are diffuse degenerative changes of the visualized lumbar spine. Greatest L4-L5 and L5-S1. Again noted area of low attenuation within the right acetabulum. Moderate neural foraminal narrowing L4-L5. Degenerative changes of the sacroiliac joints. CT/Abdomen/Pelvis without Cont IMPRESSION: Bilateral nephrolithiasis. There is a new stone at the right UPJ without significant hydronephrosis. There has been placement of a left nephroureteral stent. Distally within the urinary bladder and proximally within the superior pole the left kidney with the tip extending into the posterior cortex. There is decreasing hydronephrosis and edema to the left kidney however there remains mild edema and mild hydronephrosis with some perinephric stranding and stranding adjacent to the ureter. No CT evidence for acute diverticulitis or appendicitis. Low-attenuation structure within the superior pole the left kidney. As discussed on prior study. Consider follow-up ultrasound as this was not seen on remote CT scanning. Borderline splenomegaly. Other findings as above. Electronically Signed: Fran Mohamud, at 2:20 EDT Tel , Service support ,
--- NOTE | 2019-12-09 00:57 | ED.VISSUMM ---
- ER Visit Summary Date of Service: 12/09/19 Chief Complaint: Left flank pain History of Present Illness: The patient is a 54 M history of for prior kidney stones, back surgery x2 and right leg nerve damage. Patient states within the last week he was diagnosed with kidney stones. On Tuesday Dr. Clayton Jackman just laced a stent on his left ureter. They states he was doing well. He has been taking oxycodone for pain and Cipro the antibiotic. Today he had more left flank pain. Mild nausea no vomiting. No recent fever. Physical Examination: Male vital signs stable afebrile. No acute distress. H EENT exam unremarkable. Lungs clear to auscultation. Heart regular rhythm no murmur. Abdomen soft nontender. Patient moving all 4 extremities. Neurovascular intact. Calves are nontender without edema or cords. Neurologically is awake and alert. Test Results: White count 7. Hemoglobin 12.9 no bands. Chemistries unremarkable BUN 29 creatinine 1.1. Urine positive nitrates blood and white cells no epithelial cells only rare bacteria. He is recently just stopped an antibiotic yesterday. I will send a urine culture but he will not be treated for an infection. CT flank study without contrast shows bilateral renal calculi. Improved hydroureter and hydronephrosis on the left with improving edema. The stents in appropriate position. No acute obstruction. Read by the radiologist and reviewed by me. Emergency Department Course and Treatment: Treated with morphine, Zofran and Toradol for pain. IV fluids. Screening labs CAT scan being obtained. Eddie exam at 2:10 AM and again at 3:36 AM is feeling much better his pain is resolving. Treatment Plan: New current pain medications. Magnesium citrate for constipation. Follow-up with his urologist. Disposition: Discharge Impression: Acute left flank pain secondary to kidney stones and recent left ureteral stent History of kidney stones with a recent left ureteral stent Constipation secondary to pain meds This note was generated with [employer] dictation software. It may contain incorrect words, spelling, and punctuation that were not noted in review of the chart prior to signing ED Disposition - Plan for ED Patient: Referrals: Jonathan Christine MD [Primary Care Provider] -
[2019-12-09 01:08] LABS: Absolute Lymphocyte Count 2.27 X10^3/uL (0.83-4.51); Absolute Neutrophil Count 4.4 X10^3/uL (2.0-7.7); Basophil# 0.05 X10^3/uL; Basophil% 0.6 % (0-1); Eosinophil# 0.12 X10^3/uL; Eosinophils% 1.5 % (0-5); Hematocrit 39.1 % (40-54); Hemoglobin 12.9 g/dL (13.0-16.5); Lymphocyte # 2.27 X10^3/ul (4.0); Lymphocyte % 28.7 % (19-41); Mean Corpuscular Hgb 29.1 pg (27.0-32.0); Mean Corpuscular Volume 88.1 fL (80-94); Monocyte# 0.69 X10^3/uL; Monocyte% 8.7 % (0-10); NRBC Flagged by Analyzer 0 % (0-5); Neutrophil # 4.41 X10^3/uL (2.7-7.7); Neutrophil % 55.8 % (47-70); Platelet Count 305 K/mm3 (150-450); RBC Distribution Width CV 13.4 % (11.6-14.6); RBC Distribution Width SD 43.7 fl (35.1-43.9); Red Blood Count 4.44 M/mm3 (4.6-6.2); White Blood Count 7.9 K/mm3 (4.4-11.0)
[2019-12-09] MEDS: 0.9% Normal Saline 1,000 ML 1000 ML IV (01:14)
[2019-12-09] MEDS: morphine 8 MG/ML Syringe IV (01:14)
[2019-12-09] MEDS: Ketorolac 30 MG/ML Syringe IV (01:14)
[2019-12-09] MEDS: Ondansetron 4 MG/2 ML Vial IV (01:15)
[2019-12-09 01:17] LABS: Anion Gap 5 (5-15); BUN 29 mg/dL (7-18); Calcium,Total 8.8 mg/dL (8.5-10.1); Chloride 108 mmol/L (98-107); Creatinine, Serum 1.16 mg/dL (0.70-1.30); EST Glomerular Filtration Rate 70 mL/min (>60); Est Glom Filt Rate - Afr Amer 84 mL/min (>60); Estimated Creatinine Clearance 82.27 ml/min; Glucose 179 mg/dL (74-106); Sodium Level 139 mmol/L (136-145)
[2019-12-09 01:25] LABS: Mucous, Urine 0 SEEN /hpf (<or=2+); Squamous Epithelial Cells - UA 0 SEEN /hpf (0-5)
[2019-12-09 01:26] LABS: Color, Urine SEE COMMENT BELOW (Yellow); Glucose, Dipstick Normal (Normal); Ketone-Dipstick Negative (Negative); Leukocyte Esterase-Dipstick 25 /ul (Negative); Nitrite-Dipstick Positive (Negative); Occult Blood-Urine 250 /ul (Negative); Protein-Dipstick 100 mg/dl (Negative); Urine Bilirubin Dipstick 3 mg/dL (Negative); Urine Clarity Sl. Cloudy (Clear); Urine Urobilinogen 4 mg/dl (Normal)
[2019-12-09 01:32] LABS: Bacteria RARE /hpf (None Seen); Red Blood Cells-Urine 5-10 SEEN /hpf (0-5); White Blood Cells 10-25 SEEN /hpf (0-5)
[2019-12-09 03:37] VITALS: BP 123/82; PULSE 53; RESP 16; O2SAT 97
--- NOTE | 2019-12-09 03:40 | ED.DEP ---
ED Disposition - Plan for ED Patient: Disposition: Home or Assisted Living Instructions: ED Renal Stone w Colic Referrals: Tony Jackman MD [STAFF PHYSICIAN] - As soon as possible Additional Instructions: Plenty of fluids and rest. Continue your pain medications. Magnesium citrate as needed for constipation along with fluids, fruits, vegetables and fiber. Stool softener as needed. Follow-up with your urologist
[2019-12-09] MEDS: Magnesium Citrate 300 ML PO (03:41)
== END 2019-12-09 03:49 | disposition home or self-care (01) ==
PROVIDERS: Emergency Provider Emergency Medicine; PCP Internal Medicine
DX: N13.2 Hydronephrosis with renal and ureteral calculous obstruction (principal); K59.03 Drug induced constipation; Z87.442 Personal history of urinary calculi
CPT/HCPCS: 74176; 80048; 81001; 85025; 87086; 96361; 96374; 96375; 99283; J7030; J2405

== ENCOUNTER → 2019-12-13 | Outpatient (CLI) | payer OTHER, SELFPAY ==
[2019-12-09 00:19] VITALS: BMI 28.3
--- NOTE | 2019-12-13 08:08 | RAD_ITS ---
STUDY: X-RAY - ABDOMEN/PELVIS REASON FOR EXAM: Male, 54 years old. Lithotripsy last Tuesday. Left stent placement. TECHNIQUE: Two AP supine views of the abdomen and pelvis. COMPARISON: CT abdomen and pelvis, December 09, 2019. Abdomen, December 05, 2019. FINDINGS: Lung bases are not included. There is an unremarkable bowel gas pattern. There is no demonstrated free abdominal air. The visualized liver, spleen and kidneys are grossly normal in size and morphology. There are small densities in the right upper quadrant suggesting right kidney stones. There is a left ureteral stent. The left renal calcification seen on the prior study no longer present. Normal soft tissue structures. No visualized osseous changes. RAD/Abdomen Single View IMPRESSION: 1. Left ureteral stent with nonvisualization of the left renal calculus seen on the prior study. 2. Persistent right renal calculi. Electronically Signed: Nimesh Moses DO at 16:58 EDT Tel [phone], Service support ,
== END | disposition home or self-care (01) ==
LOC: RAD 07:58
PROVIDERS: PCP Internal Medicine; Referring Provider Urology; Visit Provider Urology
DX: N20.9 Urinary calculus, unspecified (principal)
CPT/HCPCS: 74018

== ENCOUNTER → 2019-12-24 | Outpatient (CLI) | payer OTHER, SELFPAY ==
[2019-12-09 00:19] VITALS: BMI 28.3
--- NOTE | 2019-12-24 10:25 | RAD_ITS ---
STUDY: X-RAY - ABDOMEN/PELVIS REASON FOR EXAM: Male, 54 years old. HX OF BILATERAL CALCULI WITH ESWL AND LEFT SIDED STENT, 10 DAYS POST STENT REMOVAL RIGHT SIDED FLANK PAIN LAST TWO DAYS TECHNIQUE: AP supine and upright views of the abdomen and pelvis. COMPARISON: 12/13/2019 FINDINGS: Previous seen noted left sided JJ stent has been removed. There are persistent calcifications in the lower pole of the left kidney. There is an unremarkable bowel gas pattern. There is no demonstrated free abdominal air. The visualized liver, spleen and kidneys are grossly normal in size and morphology. There are calcified phleboliths in the pelvis. Normal visualized osseous structures. RAD/Abdomen Single View IMPRESSION: Removal of a left sided JJ stent since the previous study. Stable lower pole left nephrolithiasis No acute findings or significant interval change otherwise Electronically Signed: Gregory Jones MD at 11:00 EDT , Service support ,
== END | disposition home or self-care (01) ==
LOC: RAD 10:20
PROVIDERS: PCP Internal Medicine; Referring Provider Nurse Practitioner Adult Health; Visit Provider Nurse Practitioner Adult Health
DX: N20.1 Calculus of ureter (principal); R10.9 Unspecified abdominal pain
CPT/HCPCS: 74018

== ENCOUNTER → 2020-07-14 09:40 | Outpatient (CLI) | payer OTHER, SELFPAY ==
[2020-07-14 12:28] LABS: Hematocrit 43.8 % (40-54); Hemoglobin 14.7 g/dL (13.0-16.5); Mean Corp Hgb Conc 33.6 g/dL (32-36); Mean Corpuscular Hgb 28.3 pg (27.0-32.0); Mean Corpuscular Volume 84.4 fL (80-94); Mean Platelet Vol. 11.1 fl (6.2-12.0); Platelet Count 201 K/mm3 (150-450); RBC Distribution Width CV 12.7 % (11.6-14.6); RBC Distribution Width SD 38.9 fl (35.1-43.9); Red Blood Count 5.19 M/mm3 (4.6-6.2); White Blood Count 5.6 K/mm3 (4.4-11.0)
[2020-07-14 13:25] LABS: ALB/GLOB Ratio 0.9 RATIO (0.9-2.4); AST(SGOT) 19 U/L (15-37); Alanine Aminotransfer ALT/SGPT 37 U/L (16-61); Albumin, Serum 3.6 g/dL (3.2-5.0); Alkaline Phosphatase 97 U/L (45-117); Anion Gap 8 (5-15); BUN 21 mg/dL (7-18); BUN/Creat Ratio 18.3 RATIO (10-20); Chloride 108 mmol/L (98-107); Cholesterol 237 mg/dL (200); Creatinine, Serum 1.15 mg/dL (0.70-1.30); EST Glomerular Filtration Rate 70 mL/min (>60); Est Glom Filt Rate - Afr Amer 85 mL/min (>60); Globulin 3.9 g/dL (2.2-4.2); Glucose 112 mg/dL (74-106); High Density Lipoprotein 54 mg/dL; Potassium 4.1 mmol/L (3.5-5.1); Protein, Total 7.5 g/dL (6.4-8.2); Sodium Level 140 mmol/L (136-145); Triglycerides 101 mg/dL; Very Low Density Lipoprotein 20 mg/dL (5-40)
== END ==
LOC: LAB 09:41 → MTLAB 09:42
PROVIDERS: PCP Internal Medicine; Referring Provider Internal Medicine; Visit Provider Internal Medicine
DX: E78.5 Hyperlipidemia, unspecified (principal); I10 Essential (primary) hypertension
CPT/HCPCS: 36415; 80053; 80061; 85027

== ENCOUNTER 2021-07-18 11:41 | Emergency (ER) | payer OTHER, SELFPAY ==
[2021-07-18 11:42] VITALS: BP 152/92; PULSE 61; RESP 18; TEMP 36.6; O2SAT 99; BMI 29.2
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
== END 2021-07-18 23:59 | disposition home or self-care (01) ==
PROVIDERS: Emergency Provider Emergency Medicine; PCP Internal Medicine; Visit Provider Emergency Medicine
DX: S16.1XXA Strain of muscle, fascia and tendon at neck level, initial encounter (principal); V43.52XA Car driver injured in collision with other type car in traffic accident, initial encounter; M50.30 Other cervical disc degeneration, unspecified cervical region; M51.34 Other intervertebral disc degeneration, thoracic region; S29.019A Strain of muscle and tendon of unspecified wall of thorax, initial encounter; I10 Essential (primary) hypertension; G89.29 Other chronic pain; Z79.899 Other long term (current) drug therapy
CPT/HCPCS: 72040; 72072; 99282